=== PATIENT | male | born 1945 | race Caucasian/White ===

== ENCOUNTER 2019-03-26 12:04 | Inpatient (IN) | payer MEDICARE ==
[~2019-03-26] VITALS: Ht 170.2 cm; Wt 68.5 kg
--- NOTE | 2019-03-26 12:40 | PHYS DOC ---
Adult General Chief Complaint Chief Complaint: fall HPI HPI 73-year-old male presents for medical clearance of [facility] admission. The patient has had multiple falls at home. He has not had any imaging or workup since he's had these falls. The patient has been acting different than his baseline. He has had multiple strokes and has aphasia. He is unable to clearly communicate which he is feeling. He is able to tell me that he has pain in the posterior right hip. He does not tell me any other specific complaints. He is reported to be having delusions, depression, and anxiety. The behavioral health team has asked that we perform a head CT due to his recent falls. No reported fever. Review of Systems Review of Systems Constitutional: Denies fever or chills [] Eyes: Denies change in visual acuity, redness, or eye pain [] HENT: Denies nasal congestion or sore throat [] Respiratory: Denies cough or shortness of breath [] Cardiovascular: No additional information not addressed in HPI [] GI: Denies abdominal pain, nausea, vomiting, bloody stools or diarrhea [] : Denies dysuria or hematuria [] Musculoskeletal: Right hip pain[] Integument: Denies rash or skin lesions [] Neurologic: Dysarthria at baseline Denies headache. [] Endocrine: Denies polyuria or polydipsia [] All other systems were reviewed and found to be within normal limits, except as documented in this note. Current Medications Current Medications Current Medications Medications (Trade) Dose Ordered Sig/Moo Start Time Stop Time Status Last Admin Dose Admin Lorazepam (Ativan Inj) 2 mg 1X ONCE 03/26/19 12:30 03/26/19 12:31 UNV Physical Exam Physical Exam Constitutional: Well developed, well nourished, no acute distress, non-toxic appearance. [] HENT: Normocephalic, atraumatic, bilateral external ears normal, oropharynx moist, no oral exudates, nose normal. [] Eyes: PERRLA, EOMI, conjunctiva normal, no discharge. [] Neck: Normal range of motion, no tenderness, supple, no stridor. [] Cardiovascular:Heart rate regular rhythm, no murmur [] Lungs & Thorax: Bilateral breath sounds clear to auscultation [] Abdomen: Bowel sounds normal, soft, no tenderness, no masses, no pulsatile masses. [] Skin: Warm, dry, no erythema, no rash. [] Back: No tenderness, no CVA tenderness. [] Extremities: Mild tenderness over right posterior hip[] Neurologic: Alert, aphasia. Moving all extremities [] Psychologic: Affect normal, judgement normal, mood alternates between calm and frustrated. [] EKG EKG [] Radiology/Procedures Radiology/Procedures [] Impressions: Exam performed: CT scan of the head without contrast. Date of Service: 03/26/2019. Comparison: None available. Clinical History: Recent falls. Technique: Helical acquisitions are obtained from the foramen magnum to the vertex without intravenous administration of contrast. Findings: There is prominence of cortical sulci and ventricular system compatible with age related atrophy. There are areas of low-attenuation in both periventricular deep white matter suggesting small vessel ischemic changes. Normal garner-white differentiation is maintained. There is no extra axial fluid collection, intraparenchymal hemorrhage or mass lesion. The visualized portions of the orbits, paranasal sinuses and the mastoid air cells appear clear. The calvarium is intact. Impression: 1. Age-appropriate atrophy without any acute intracranial process. RS Compliance Statement: One or more of the following individualized dose reduction techniques were utilized for this examination: 1. Automated exposure control 2. Adjustment of the mA and/or kV according to patient size 3. Use of iterative reconstruction technique Electronically signed by: Shani Jones MD (03/26/2019 4:11 PM) [facility] [place]CTATED AND SIGNED BY: SHANI JONES MD DATE: 03/26/19 1611 CC: CATHERINE MENDOZA DO; PADMINI MORTON Course & Med Decision Making Course & Med Decision Making Pertinent Labs and Imaging studies reviewed. (See chart for details) Patient's head CT is negative for acute findings. His KUB shows stool retention. His hip x-ray did not show any fracture or dislocation. Patient was difficult to manage. He was given 2 mg of Ativan IM as well as 5 mg of Haldol IM. This calmed him significantly. The patient's labs have been reviewed. See chart for more details. None of these preclude his admission to [facility]. The patient is medically stable for behavioral health admission. [] Dragon Disclaimer Dragon Disclaimer This electronic medical record was generated, in whole or in part, using a voice recognition dictation system. Departure Departure: Impression: Primary Impression: Medical clearance for psychiatric admission Disposition: ADMITTED INPATIENT Condition: STABLE Referrals: PCP,RIKI (PCP) CATHERINE MENDOZA DO Mar 26, 2019 12:40
[2019-03-26 12:51] LABS: BASO # 0.1 x10^3/uL (0.0-0.2); BASO % 1 % (0-3); EOS # 0.1 x10^3/uL (0.0-0.7); EOS % 1 % (0-3); HEMATOCRIT 35.4 % (39.0-53.0); HEMOGLOBIN 11.7 g/dL (13.0-17.5); LYMPH # 0.9 x10^3/uL (1.0-4.8); LYMPH % 15 % (24-48); MEAN CORPUSCULAR HEMOGLOBIN 30 pg (25-35); MEAN CORPUSCULAR HGB CONC 33 g/dL (31-37); MEAN CORPUSCULAR VOLUME 91 fL (79-100); MONO # 0.4 x10^3/uL (0.0-1.1); MONO % 7 % (0-9); NEUT # 4.4 x10^3uL (1.8-7.7); NEUT % 76 % (31-73); PLATELET COUNT 306 x10^3/uL (140-400); RED BLOOD COUNT 3.89 x10^6/uL (4.30-5.70); RED CELL DISTRIBUTION WIDTH 15.2 % (11.5-14.5); WHITE BLOOD COUNT 5.9 x10^3/uL (4.0-11.0)
[2019-03-26 13:02] LABS: ALBUMIN 3.9 g/dL (3.4-5.0); ALBUMIN/GLOBULIN RATIO 1.1 (1.0-1.7); CALCIUM 9.7 mg/dL (8.5-10.1); CREATININE 0.9 mg/dL (0.7-1.3); GFR 82.9; POTASSIUM 4.2 mmol/L (3.5-5.1); TOTAL BILIRUBIN 1.1 mg/dL (0.2-1.0); TOTAL PROTEIN 7.3 g/dL (6.4-8.2)
[2019-03-26] MEDS ORDERED: HALOPERIDOL LACT 5 MG/ML VIAL. IVP ONE (13:15)
[2019-03-26] MEDS ORDERED: HALOPERIDOL LACT 5 MG/ML VIAL. ONE (13:21)
[2019-03-26] MEDS ORDERED: HALOPERIDOL LACT 5 MG/ML VIAL. IM ONE (13:30)
--- NOTE | 2019-03-26 14:26 | EKG ---
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
[2019-03-26 14:30] LABS: BACTERIA,URINE 0 /HPF (0-FEW); BILIRUBIN,URINE NEG (NEG); CLARITY,URINE CLEAR; COLOR,URINE YELLOW; GLUCOSE,URINE NEG (NEG); NITRITE,URINE NEG (NEG); RBC,URINE 0 /HPF (0-2); SQUAMOUS EPITHELIAL CELL,UR OCC /LPF; UROBILINOGEN,URINE 0.2 mg/dL (0.2 mg/dL); WBC,URINE OCC /HPF (0-4)
[2019-03-26] MEDS ORDERED: LEXAPRO10 MG PO (16:04)
[2019-03-26] MEDS ORDERED: BISA10SU4 RC (16:04)
[2019-03-26] MEDS ORDERED: TRAZ-120 PO (16:04)
[2019-03-26] MEDS ORDERED: ACET325T9 PO (16:04)
[2019-03-26] MEDS ORDERED: ALPR0.5T PO (16:04)
[2019-03-26] MEDS ORDERED: ALBU2.5V8 INH (16:04)
[2019-03-26] MEDS ORDERED: FOLI1TAB16 PO (16:04)
[2019-03-26] MEDS ORDERED: ALPR1TAB2 PO (16:04)
[2019-03-26] MEDS ORDERED: LEVO137T3 PO (16:04)
[2019-03-26] MEDS ORDERED: FAMO20TA5 PO (16:04)
[2019-03-26] MEDS ORDERED: ASPI-630 PO (16:04)
[2019-03-26] MEDS ORDERED: THIA100T22 PO (16:04)
[2019-03-26] MEDS ORDERED: LEVE100S8 PO (16:04)
[2019-03-26] MEDS ORDERED: ALPR0.25 PO (16:04)
--- NOTE | 2019-03-26 16:14 | RAD ---
Exam performed: CT scan of the head without contrast. Date of Service: 03/26/2019. Comparison: None available. Clinical History: Recent falls. Technique: Helical acquisitions are obtained from the foramen magnum to the vertex without intravenous administration of contrast. Findings: There is prominence of cortical sulci and ventricular system compatible with age related atrophy. There are areas of low-attenuation in both periventricular deep white matter suggesting small vessel ischemic changes. Normal garner-white differentiation is maintained. There is no extra axial fluid collection, intraparenchymal hemorrhage or mass lesion. The visualized portions of the orbits, paranasal sinuses and the mastoid air cells appear clear. The calvarium is intact. Impression: 1. Age-appropriate atrophy without any acute intracranial process. PQRS Compliance Statement: One or more of the following individualized dose reduction techniques were utilized for this examination: 1. Automated exposure control 2. Adjustment of the mA and/or kV according to patient size 3. Use of iterative reconstruction technique Electronically signed by: Shani Jones MD (03/26/2019 4:11 PM) [facility] [place]
[2019-03-26] MEDS ORDERED: METHYL SALICYLATE/MENTHOL TOPICAL OINTMENT 29GM TUBE. TP PRN (17:45)
[2019-03-26] MEDS ORDERED: MAGNESIUM HYDROXIDE 2,400 MG/30 ML ORAL.SUSP. PO PRN (17:45)
[2019-03-26] MEDS ORDERED: ALBUTEROL SULFATE 2.5 MG/3 ML NEBU. INH PRN (17:45)
[2019-03-26] MEDS ORDERED: BISACODYL 10 MG SUPP.RECT PR PRN (17:45)
[2019-03-26] MEDS ORDERED: MAG HYDROX/AL HYDROX/SIMETH 30 ML ORAL.SUSP PO PRN (17:45)
[2019-03-26] MEDS: NICOTINE 7MG PATCH. TD SCH (18:00)
[2019-03-26 18:22] VITALS: BP 150/92
--- NOTE | 2019-03-26 18:31 | RAD ---
Supine abdomen. HISTORY: Fall right hip pain Supine view was taken of the abdomen. Pelvis is intact without fracture. A definite right hip fracture is not identified. Left hip is incompletely evaluated. There is mild arthritis in the hips. There is hypertrophic change in the spine. Bowel pattern is nonspecific without obstruction. There is an old kyphoplasty at L4. IMPRESSION: 1. Nonspecific bowel gas pattern without obstruction. 2. No definite fracture in the right hip or pelvis. Electronically signed by: Rodrigo Nuñez MD (03/26/2019 6:28 PM) [facility]
--- NOTE | 2019-03-26 18:32 | RAD ---
Pelvis one view with 2 views right hip. HISTORY: Fall with right hip pain Single view was taken of the pelvis. There is no pelvic fracture. There is mild arthritis in the left hip. There is hypertrophic and degenerative change in the lower lumbar spine. AP and lateral views were taken of the right hip. There is mild arthritis and hypertrophic change at the hip. There is no acute fracture at the right hip. IMPRESSION: 1. No pelvic fracture noted. 2. No right hip fracture noted. Electronically signed by: Rodrigo Nuñez MD (03/26/2019 6:30 PM) [facility]
[2019-03-26] MEDS: levETIRAcetam 500 MG TABLET PO SCH (19:41)
[2019-03-26] MEDS: ACETAMINOPHEN 325 MG TABLET PO SCH (19:42)
[2019-03-26] MEDS: FAMOTIDINE 20 MG TABLET PO SCH (19:42)
[2019-03-26] MEDS: traZODone 50 MG TABLET. PO SCH (19:42)
[2019-03-26] MEDS: ALPRAZolam 0.25 MG TABLET PO SCH (19:47)
[2019-03-26] MEDS ORDERED: ALPRAZolam 0.5 MG TABLET PO SCH (21:00)
--- NOTE | 2019-03-26 21:57 | HP ---
ADMIT DATE: 03/26/2019 PSYCHIATRIC ADMISSION HISTORY AND EVALUATION This note covers the element not covered in my initial note. I met with the patient in the evening of 03/26/2019. Discussed with nursing staff, reviewed the chart. Previously, I discussed with the patient with Bernie Alejo preparation center coordinator after the patient was referred to us from [facility] by Dr. Nando Monsivais, his primary care physician on account of marked aggressive behaviors towards his . He was combative with staff, spitting out medications, yelling with marked insomnia, agitated, cursing at staff. He had failed outpatient psychiatric interventions. CHIEF COMPLAINT: "I don't know." The patient responded after I met with him shortly after he arrived on the unit and asked him when he came here. He has been angry, irritable, paranoid, refusing to eat. HISTORY OF PRESENT ILLNESS: The patient has a history of dementia, Alzheimer's vascular type. He has been residing at the [facility] for some time, but recently getting more paranoid, agitated, aggressive, disruptive. He has had sleep and appetite changes, significant mood swings. No active suicidal or homicidal ideation. The patient has had significant and repeated falls recently. PAST PSYCHIATRIC HISTORY: As above. MEDICAL HISTORY: Status post CVA, aphasia, cognitive impairment, dysphagia, hypertension, asthma, BPH, hypothyroidism, arthritis, history of thyroid cancer, past history of alcohol dependence, last use was in 11/2018. G-tube removed 03/21/2019. On 03/24/2019, the patient fell on his head, awaiting x-ray reports on hips and ribs. CURRENT PSYCHOTROPICS: Lexapro 10 mg a day, trazodone 50 mg at bedtime, Xanax 0.25 mg daily, 1 mg at bedtime, Xanax p.r.n. CODE STATUS: Full code. ALLERGIES: SULFA. DIET: Regular. Ambulates independently. He is at fall risk. FAMILY HISTORY: Noncontributory. SOCIAL HISTORY: Positive for alcohol abuse. No physical, sexual or elder abuse history is noted. He is not known to be a perpetrator. REACTION TO HOSPITALIZATION: The patient oblivious of this. ASSETS: Supportive, living at the facility. MENTAL STATUS EXAMINATION: The patient was seen individually evening of 03/26/2019. He is not very verbal, interactive, withdrawn, angry, irritable and paranoid. Insight, judgment, recent and remote memory, attention, concentration, fund of knowledge poor, consistent with his diagnosis. He is only oriented to himself. LABORATORY DATA: Reviewed. IMPRESSION: Major neurocognitive disorder, multifactorial, possibly due to alcohol, Alzheimer, vascular with delusion, depression, behavioral disturbance; anxiety disorder, unspecified; impulse control disorder, unspecified. Rest as above. PLAN: Admit to Geropsychiatry Unit at [facility]. I will see the patient daily individually from a psychiatric standpoint. Medical followup with Dr. Posada. Observe the patient's baseline, then adjust his psychotropics. He does seem to have some tremors. We will consult Dr. Cordero, Neurology. He is also on Keppra 1 g twice a day for seizure prophylaxis. Given his anger, irritability and the fact that Keppra could worsen it, we will check with Dr. Cordero that this can be changed to Depakote, which would help with mood stabilization as well. We have added Zyprexa 2.5 mg q.2 hours p.r.n. psychosis, agitation, max 10 mg in 24 hours after this. Staff had called me as an emergency. We will also taper and stop the scheduled Xanax 1 mg at bedtime. Continue p.r.n. Xanax is being tapered consequent with history of falls, benzodiazepines worsening this. We will make further decisions as the hospitalization progresses. ESTIMATED LENGTH OF STAY: 7-10 days. DISPOSITION: Plans back to correction when stable. MAN Gladis RECINOS MD DR: EVETTE/abdirahman JOB#: [id number] / [id number]
--- NOTE | 2019-03-26 23:15 | PDOC ---
Exam Note: Sebastien Note: Please also refer to the separate dictated note~for this date of service dictated separately.~Patient seen individually. Discussed the patient with Nursing staff reviewed the chart.~Reviewed interim history and current functioning. Reviewed vital signs,~Labs/ Radiology~and current medications noted below. Continue current treatment with the changes noted in the dictated addendum note Assessment: Vital Signs/I&O: Vital Signs Date Time Temp Pulse Resp B/P (MAP) Pulse Ox O2 Delivery O2 Flow Rate FiO2 03/26/19 18:22 97.8 87 16 150/92 (111) 95 03/26/19 14:57 Room Air Labs: Laboratory Tests Test 03/26/19 12:33 03/26/19 14:08 White Blood Count 5.9 x10^3/uL (4.0-11.0) Red Blood Count 3.89 x10^6/uL (4.30-5.70) L Hemoglobin 11.7 g/dL (13.0-17.5) L Hematocrit 35.4 % (39.0-53.0) L Mean Corpuscular Volume 91 fL (79-100) Mean Corpuscular Hemoglobin 30 pg (25-35) Mean Corpuscular Hemoglobin Concent 33 g/dL (31-37) Red Cell Distribution Width 15.2 % (11.5-14.5) H Platelet Count 306 x10^3/uL (140-400) Neutrophils (%) (Auto) 76 % (31-73) H Lymphocytes (%) (Auto) 15 % (24-48) L Monocytes (%) (Auto) 7 % (0-9) Eosinophils (%) (Auto) 1 % (0-3) Basophils (%) (Auto) 1 % (0-3) Neutrophils # (Auto) 4.4 x10^3uL (1.8-7.7) Lymphocytes # (Auto) 0.9 x10^3/uL (1.0-4.8) L Monocytes # (Auto) 0.4 x10^3/uL (0.0-1.1) Eosinophils # (Auto) 0.1 x10^3/uL (0.0-0.7) Basophils # (Auto) 0.1 x10^3/uL (0.0-0.2) Sodium Level 145 mmol/L (136-145) Potassium Level 4.2 mmol/L (3.5-5.1) Chloride Level 107 mmol/L (98-107) Carbon Dioxide Level 28 mmol/L (21-32) Anion Gap 10 (6-14) Blood Urea Nitrogen 17 mg/dL (8-26) Creatinine 0.9 mg/dL (0.7-1.3) Estimated GFR (Cockcroft-Gault) 82.9 BUN/Creatinine Ratio 19 (6-20) Glucose Level 121 mg/dL (70-99) H Calcium Level 9.7 mg/dL (8.5-10.1) Magnesium Level 2.2 mg/dL (1.8-2.4) Iron Level 50 ug/dL (65-175) L Total Iron Binding Capacity 211 ug/dL (250-450) L Iron Saturation 24 % (15-34) Total Bilirubin 1.1 mg/dL (0.2-1.0) H Aspartate Amino Transferase (AST) 20 U/L (15-37) Alanine Aminotransferase (ALT) 30 U/L (16-63) Alkaline Phosphatase 93 U/L (46-116) Total Protein 7.3 g/dL (6.4-8.2) Albumin 3.9 g/dL (3.4-5.0) Albumin/Globulin Ratio 1.1 (1.0-1.7) Urine Collection Type Unknown Urine Color Yellow Urine Clarity Clear Urine pH 7.0 Urine Specific [place] 1.015 Urine Protein Neg (NEG-TRACE) Urine Glucose (UA) Neg mg/dL (NEG) Urine Ketones (Stick) Neg mg/dL (NEG) Urine Blood Neg (NEG) Urine Nitrite Neg (NEG) Urine Bilirubin Neg (NEG) Urine Urobilinogen Dipstick 0.2 mg/dL (0.2 mg/dL) Urine Leukocyte Esterase Neg (NEG) Urine RBC 0 /HPF (0-2) Urine WBC Occ /HPF (0-4) Urine Squamous Epithelial Cells Occ /LPF Urine Transitional Epithelial Cells Occ /LPF Urine Bacteria 0 /HPF (0-FEW) Urine Mucus Slight /LPF Current Medications: Meds: Current Medications Medications (Trade) Dose Ordered Sig/Moo Route PRN Reason Start Time Stop Time Status Last Admin Dose Admin Lorazepam (Ativan Inj) 2 mg 1X ONCE IM 03/26/19 12:30 03/26/19 15:23 DC 03/26/19 12:25 Haloperidol Lactate (Haldol) 5 mg 1X ONCE IM 03/26/19 13:30 03/26/19 15:23 DC 03/26/19 13:30 Acetaminophen (Tylenol) 650 mg BID PO 03/26/19 21:00 03/26/19 19:42 Famotidine (Pepcid) 20 mg BID PO 03/26/19 21:00 03/26/19 19:42 Levetiracetam (Keppra) 1,000 mg BID PO 03/26/19 21:00 03/26/19 19:41 Trazodone HCl (Desyrel) 50 mg QHS PO 03/26/19 21:00 03/26/19 19:42 Alprazolam (Xanax) 0.75 mg QHS PO 03/26/19 21:00 03/27/19 23:50 03/26/19 19:47 Olanzapine (ZyPREXA ZYDIS) 2.5 mg PRN Q2HR PRN PO AGITATION 03/26/19 19:30 03/26/19 19:48 I have reviewed the current psychotropics carefully including drug interactions. Risk benefit ratio favors no change other than as noted in my dictated progress note. Diagnosis: Problems: (1) Medical clearance for psychiatric admission (2) Anxiety disorder (3) Major neurocognitive disorder (4) Dementia in Alzheimer's disease with delusions (5) Dementia in Alzheimer's disease with depression (6) Dementia, vascular, with delusions (7) Dementia, vascular, with depression (8) Impulse control disorder CECILIO RECINOS MD Mar 26, 2019 23:15
--- NOTE | 2019-03-27 01:07 | CONS ---
DATE OF CONSULTATION: NEUROLOGY CONSULTATION REFERRING PHYSICIAN: Dr. Holman. REASON FOR CONSULTATION: History of seizure disorder and frequent falls. HISTORY OF PRESENT ILLNESS: This is a 73-year-old right-handed male who was admitted through Emergency Room after he had medical clearance for admission to [facility] for geropsychiatric care. The patient stated he has had multiple falls at home and he complains of hip pain. The patient cannot give medical history because the patient cannot give a reliable history due to expressive aphasia after he had a hemorrhagic stroke a few months ago. The initial head CT scan revealed evidence of left temporal prior to intracranial hemorrhage; however, the patient received stroke rehabilitation and he was able to move all his extremities. Neuro consult was requested because he has recent falls and also change in his current seizure medication from Keppra to Depakote. Unfortunately, the patient unable to describe or give any information about a type of his seizure. Currently, he denies headaches, visual disturbances, nausea, vomiting, chest pain, shortness of breath or palpitation, dysarthria or dysphagia. PAST MEDICAL HISTORY: Significant for hemorrhagic stroke resulted in expressive aphasia and later on he needed PEG feeding tube placement, which was removed approximately a week ago and he is back on his regular diet. History of asthma, benign prostate hypertrophy, hypothyroidism, hypertension, degenerative arthritis, depression, anxiety, decline in cognitive functions, alcohol dependency, the last use was in 11/2018, thyroid cancer and substance abuse. PAST SURGICAL HISTORY: Significant for thyroid lobectomy, tonsillectomy, appendectomy and right elbow surgery. FAMILY HISTORY: Not obtainable. SOCIAL HISTORY: He lives independently and he denies smoking, but he was alcohol dependent until 11/2018. CURRENT MEDICATIONS: Alprazolam, thiamine, folic acid, citalopram, aspirin, levothyroxine, trazodone, Keppra 1000 b.i.d., Pepcid, acetaminophen, Tylenol and olanzapine for agitation, albuterol inhaler p.r.n. ALLERGIES: SULFA DRUGS. REVIEW OF SYSTEMS: A 10-point review of system was performed as mentioned above in history of present illness. PHYSICAL EXAMINATION: GENERAL: Well-developed, well-nourished male, not in acute distress. He weighs 70 kilograms. VITAL SIGNS: Blood pressure 150/92, respiratory rate 16, pulse is 87 and regular, temperature 97.8, oxygen saturation 95% on room air. HEENT: Normocephalic, atraumatic, otherwise unremarkable. NECK: Supple. Negative for carotid bruit, lymphadenopathy or thyromegaly. LUNGS: Clear to A and P. CARDIOVASCULAR: Regular rate and rhythm, normal S1, S2. There is no S3, S4 or murmur. ABDOMEN: Soft. Bowel sounds positive. EXTREMITIES: Negative for cyanosis, clubbing or edema. NEUROLOGIC: Mental status: The patient is alert and oriented to himself and place. The patient is expressive aphasic. Memory, judgment, and abstracting thinking is difficult to evaluate at this time. Cranial nerves: Visual alfred appeared to be intact. Pupils are equal and reactive to light and accommodation. The extraocular movements are intact. There is no nystagmus. There is no facial, motor, or sensory deficit. Hearing appeared to be intact. The rest of the evaluation is limited at this time. Motor exam: The patient moves his all extremities equally. No focal muscle bulk was seen. Sensory examination revealed normal pinprick and light touch senses throughout. Deep tendon reflexes were symmetric and hypoactive without pathology responses. Gait: The patient refused to stand out from his chair. However, the nursing staff told me that he was able to walk earlier without assistance. DIAGNOSTIC DATA: Initial nonenhanced head CT scan showed no acute intracranial process, but showed small vessel ischemic changes. X-ray of the right hip revealed no fracture and x-ray of the pelvis revealed no fracture. Abdomen KUB x-ray revealed no evidence of bowel obstructions. No fracture of the right hip as well. LABORATORY DATA: CBC revealed white blood cells of 5900, hemoglobin 11.7, hematocrit 35.4, platelet count 306,000. Chemistry revealed sodium of 145, potassium 4.2, chloride 107, CO2 of 28, BUN 17, creatinine 0.9, glucose 121, calcium 9.7, magnesium 2.2. Iron is 50, TIBC is low at 211. Liver enzymes are normal. Urinalysis is negative for urinary tract infections. IMPRESSION: 1. Status post hemorrhagic stroke in left temporoparietal regions resulted in expressive aphasia. No focal motor deficit. 2. History of seizure disorder, etiology is uncertain. 3. Multiple medical problems includes hypertension, dementia, depressions and anxiety, alcohol dependency, but the last use was in 11/2018 and generalized degenerative arthritis. RECOMMENDATIONS: 1. We will change Keppra to Depakote. 2. Continue with current medical and psychiatric care. M Kwaku MOLINA MD DR: JOSE MIGUEL/abdirahman JOB#: [id number] / [id number]
[2019-03-27] MEDS: LEVOTHYROXINE 137 MCG TABLET PO SCH (05:15)
[2019-03-27 06:33] VITALS: BP 174/91
[2019-03-27] MEDS: NICOTINE 7MG PATCH. TD SCH (07:46)
[2019-03-27] MEDS: levETIRAcetam 500 MG TABLET PO SCH ×3 (07:47→20:44)
[2019-03-27] MEDS: ACETAMINOPHEN 325 MG TABLET PO SCH ×2 (07:47→20:44)
[2019-03-27] MEDS: FAMOTIDINE 20 MG TABLET PO SCH ×2 (07:47→20:44)
[2019-03-27] MEDS: ASPIRIN 81 MG TAB.CHEW PO SCH (07:51)
[2019-03-27] MEDS: ALPRAZolam 0.25 MG TABLET PO SCH ×2 (07:51→20:43)
[2019-03-27] MEDS: CITALOPRAM 20 MG TABLET. PO SCH (07:51)
[2019-03-27] MEDS: FOLIC ACID 1 MG TABLET PO SCH (07:54)
[2019-03-27] MEDS: THIAMINE 100 MG TABLET. PO SCH (07:54)
[2019-03-27 10:55] LABS: THYROID STIM HORMONE (TSH) 19.297 uIU/mL (0.358-3.740)
[2019-03-27 16:29] VITALS: BP 137/87
[2019-03-27 20:08] LABS: THYROXINE 8.5 ug/dL (4.5-12.0)
[2019-03-27] MEDS: traZODone 50 MG TABLET. PO SCH (20:44)
--- NOTE | 2019-03-27 21:56 | PDOC ---
Exam Note: Sebastien Note: Please also refer to the separate dictated note~for this date of service dictated separately.~Patient seen individually. Discussed the patient with Nursing staff reviewed the chart.~Reviewed interim history and current functioning. Reviewed vital signs,~Labs/ Radiology~and current medications noted below. Continue current treatment with the changes noted in the dictated addendum note Assessment: Vital Signs/I&O: Vital Signs Date Time Temp Pulse Resp B/P (MAP) Pulse Ox O2 Delivery O2 Flow Rate FiO2 03/27/19 16:29 98.6 60 16 137/87 (104) 98 03/27/19 06:33 Room Air Current Medications: Meds: Current Medications Medications (Trade) Dose Ordered Sig/Moo Route PRN Reason Start Time Stop Time Status Last Admin Dose Admin Levothyroxine Sodium (Synthroid) 137 mcg DAILY06 PO 03/27/19 06:00 03/27/19 05:15 Alprazolam (Xanax) 0.25 mg DAILY PO 03/27/19 09:00 03/27/19 07:51 Aspirin (Children'S Aspirin) 162 mg DAILYWBKFT PO 03/27/19 08:00 03/27/19 07:51 Citalopram Hydrobromide (CeleXA) 20 mg DAILY PO 03/27/19 09:00 03/27/19 07:51 Folic Acid (Folic Acid) 1 mg DAILY PO 03/27/19 09:00 03/27/19 07:54 Thiamine HCl (Vitamin B-1) 500 mg DAILY PO 03/27/19 09:00 03/27/19 07:54 I have reviewed the current psychotropics carefully including drug interactions. Risk benefit ratio favors no change other than as noted in my dictated progress note. Diagnosis: Problems: (1) Anxiety disorder (2) Major neurocognitive disorder (3) Dementia in Alzheimer's disease with delusions (4) Dementia in Alzheimer's disease with depression (5) Dementia, vascular, with delusions (6) Dementia, vascular, with depression (7) Impulse control disorder CECILIO RECINOS MD Mar 27, 2019 21:56
--- NOTE | 2019-03-27 23:28 | CONS ---
DATE OF CONSULTATION: 03/27/2019 REASON FOR CONSULTATION: Medical management. HISTORY OF PRESENT ILLNESS: The patient is a 73-year-old male patient, a resident at [facility], who was admitted on account of being aggressive toward , combative with staff, spitting out medication, yelling, cursing, has insomnia and he is extremely agitated despite treatment with Xanax and scheduled his Lexapro to continue and therefore, he was admitted for inpatient psychiatric stabilization. PAST MEDICAL HISTORY: Cognitive impairment as well as major depressive disorder and history of alcohol dependence. The last time he had any drink was in 11/2018. 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 Other medical problems include hypertension, benign prostatic hypertrophy, hypothyroidism, generalized osteoarthritis, thyroid cancer as well as alcohol dependence. PAST SURGICAL HISTORY: Significant for thyroidectomy as well as percutaneous endoscopic gastrostomy tube placement. Apparently, this was removed recently as his ability to swallow has improved. PAST PSYCHIATRIC HISTORY: Significant for neurocognitive disorder, vascular, Alzheimer with delusion, depression with behavior disorder, anxiety and impulse control disorder. ALLERGIES: He is allergic to SULFA DRUGS. MEDICATIONS: He is currently on following medications: He is on albuterol sulfate 1 puff every 4 hours as needed, aspirin 162 mg once a day, Tylenol 650 mg twice a day, Keppra 1000 mg twice a day, escitalopram oxalate for Lexapro 10 mg daily and trazodone 50 mg at bedtime, alprazolam 0.25 mg daily and alprazolam 0.5 mg every 8 hours, alprazolam 1 mg at bedtime, bisacodyl 10 mg suppository rectally daily p.r.n. for constipation, famotidine 20 mg twice a day, levothyroxine sodium 137 mcg p.o. daily, folic acid 1 mg once a day and thiamine mononitrate 500 mg daily. FAMILY HISTORY: Noncontributory. SOCIAL HISTORY: He apparently is ; however, currently resides at [facility]. He apparently does not smoke, but has been drinking heavily up until 11/2018. PHYSICAL EXAMINATION: GENERAL: When I examined him this afternoon, he was sitting comfortably in his wheelchair, in no apparent distress. He was pale, but no jaundice, cyanosis, or thyromegaly. No jugular venous distension. No limb edema. VITAL SIGNS: His heart rate was 55, blood pressure was 174/91, temperature was 98, respiratory rate was 16, and oxygen saturation was 100% on room air. HEAD, EYES, EARS, NOSE AND THROAT: Showed normocephalic, atraumatic. NECK: Supple. HEART: Showed normal first and second heart sounds with no gallop, rub or murmur. CHEST: Clear to auscultation. No crepitation or rhonchi. ABDOMEN: Distended, soft, nontender. No guarding or rigidity. No organomegaly. All hernial orifices intact. Bowel sounds normal. NEUROLOGIC: He was awake, alert, responding appropriately. All his cranial nerves are intact. He moves extremities without difficulty. He apparently has had a CT scan of the head, which showed that there is a prominence of cortical sulci and ventricular system compatible with age-related atrophy. There are areas of low attenuation in both periventricular deep white matter suggestive of small vessel ischemic changes. Normal helms white differentiation is maintained. There is no extraaxial fluid collection, intraparenchymal hemorrhage or mass lesions. The visualized portions of the orbits, paranasal sinuses and mastoid air cells appear clear. The calvarium is intact. He apparently has also had a fall, complained of right hip pain and therefore he has had x-ray of the right hip and pelvis, which showed no pelvic fracture and no right hip fracture noted. He has had a KUB, which showed nonspecific bowel gas pattern without obstruction, the different fracture of the right hip or pelvis. IMPRESSION: So, in summary, his lab work showed his white cell count to be 5900, hemoglobin 11.7, hematocrit 35.4, MCV 91, and a platelet count of 206,000 with normal manual differential. His chemistry showed a serum sodium of 145, potassium 4.2, chloride 107, bicarbonate 28, anion gap of 10, BUN 17, creatinine 0.9, estimated GFR was 83 mL per minute. His glucose 121, calcium was 9.7, magnesium was 2.2. Serum iron was 50, TIBC was 211 and iron saturation was 24%. Total bilirubin, AST, ALT, alkaline phosphatase were normal. Total protein was 7.3, albumin was 3.9. His serum triglycerides were 157, total cholesterol 138, LDL cholesterol was 56, VLDL was 31, and HDL cholesterol was 51, the ratio was 2. His TSH was high at 19.297. The urinalysis was essentially unremarkable. So, all in all, this patient seems to be medically stable. His TSH is high. He is currently on 137 mcg daily. I will check his T3, T4, free T4, and adjust his Synthroid, levothyroxine as needed. Thank you, Dr. Holman, for allowing me to participate in the care of this patient. ASTRID STOKES MD DR: MANJU/abdirahman JOB#: [id number] / [id number]
[2019-03-28] MEDS: LEVOTHYROXINE 137 MCG TABLET PO SCH (05:27)
[2019-03-28 06:59] VITALS: BP 161/90
[2019-03-28] MEDS: CITALOPRAM 20 MG TABLET. PO SCH (08:55)
[2019-03-28] MEDS: NICOTINE 7MG PATCH. TD SCH ×2 (08:55→09:00)
[2019-03-28] MEDS: ASPIRIN 81 MG TAB.CHEW PO SCH (08:56)
[2019-03-28] MEDS: FAMOTIDINE 20 MG TABLET PO SCH ×2 (08:56→19:44)
[2019-03-28] MEDS: levETIRAcetam 500 MG TABLET PO SCH ×2 (08:56→19:44)
[2019-03-28] MEDS: THIAMINE 100 MG TABLET. PO SCH (08:56)
[2019-03-28] MEDS: FOLIC ACID 1 MG TABLET PO SCH (08:57)
[2019-03-28] MEDS: ACETAMINOPHEN 325 MG TABLET PO SCH ×2 (08:57→19:44)
[2019-03-28] MEDS: ALPRAZolam 0.25 MG TABLET PO SCH (08:59)
[2019-03-28] MEDS: DIVALPROEX 125 MG CAP.SPRINK PO SCH ×2 (08:59→19:43)
[2019-03-28] MEDS: ALPRAZolam 0.5 MG TABLET PO PRN (15:52)
[2019-03-28 16:31] VITALS: BP 117/86
[2019-03-28] MEDS: traZODone 50 MG TABLET. PO SCH (19:44)
[2019-03-28] MEDS: ALPRAZolam 0.5 MG TABLET PO SCH (19:45)
--- NOTE | 2019-03-28 22:40 | PDOC ---
Exam Note: Sebastien Note: Please also refer to the separate dictated note~for this date of service dictated separately.~Patient seen individually. Discussed the patient with Nursing staff reviewed the chart.~Reviewed interim history and current functioning. Reviewed vital signs,~Labs/ Radiology~and current medications noted below. Continue current treatment with the changes noted in the dictated addendum note Assessment: Vital Signs/I&O: Vital Signs Date Time Temp Pulse Resp B/P (MAP) Pulse Ox O2 Delivery O2 Flow Rate FiO2 03/28/19 16:31 97.4 80 16 117/86 (96) 95 03/28/19 06:59 Room Air I & O 03/27/19 03/27/19 03/28/19 14:59 22:59 06:59 Intake Total 240 ml 0 ml 240 ml Balance 240 ml 0 ml 240 ml Current Medications: Meds: Current Medications Medications (Trade) Dose Ordered Sig/Moo Route PRN Reason Start Time Stop Time Status Last Admin Dose Admin Alprazolam (Xanax) 0.5 mg QHS PO 03/28/19 21:00 03/29/19 23:50 03/28/19 19:45 Divalproex Sodium (Depakote Sprinkles) 250 mg BID PO 03/28/19 09:00 03/28/19 19:43 I have reviewed the current psychotropics carefully including drug interactions. Risk benefit ratio favors no change other than as noted in my dictated progress note. Diagnosis: Problems: (1) Anxiety disorder (2) Major neurocognitive disorder (3) Dementia in Alzheimer's disease with delusions (4) Dementia in Alzheimer's disease with depression (5) Dementia, vascular, with delusions (6) Dementia, vascular, with depression (7) Impulse control disorder (8) Hx of seizure disorder CECILIO RECINOS MD Mar 28, 2019 22:39
[2019-03-29 01:10] LABS: HEMOGLOBIN A1C 5.5 % (4.8-5.6)
[2019-03-29] MEDS: LEVOTHYROXINE 137 MCG TABLET PO SCH (05:51)
[2019-03-29 06:08] VITALS: BP 107/67
[2019-03-29] MEDS: THIAMINE 100 MG TABLET. PO SCH (08:35)
[2019-03-29] MEDS: ASPIRIN 81 MG TAB.CHEW PO SCH (08:35)
[2019-03-29] MEDS: FOLIC ACID 1 MG TABLET PO SCH (08:36)
[2019-03-29] MEDS: levETIRAcetam 500 MG TABLET PO SCH ×2 (08:36→19:30)
[2019-03-29] MEDS: ACETAMINOPHEN 325 MG TABLET PO SCH ×2 (08:37→19:30)
[2019-03-29] MEDS: DIVALPROEX 125 MG CAP.SPRINK PO SCH ×2 (08:38→19:29)
[2019-03-29] MEDS: CITALOPRAM 20 MG TABLET. PO SCH (08:38)
[2019-03-29] MEDS: FAMOTIDINE 20 MG TABLET PO SCH ×2 (08:39→19:30)
[2019-03-29] MEDS: NICOTINE 7MG PATCH. TD SCH (08:40)
[2019-03-29] MEDS: ALPRAZolam 0.5 MG TABLET PO SCH ×2 (08:41→12:36)
[2019-03-29] MEDS: ALPRAZolam 0.25 MG TABLET PO SCH (08:43)
[2019-03-29] MEDS: hydrOXYzine HCL 25 MG TABLET PO PRN (12:36)
[2019-03-29] MEDS: ACETAMINOPHEN 325 MG TABLET PO PRN (13:20)
[2019-03-29 16:29] VITALS: BP 118/79
[2019-03-29] MEDS: traZODone 50 MG TABLET. PO SCH (19:29)
--- NOTE | 2019-03-29 22:48 | PDOC ---
Exam Note: Sebastien Note: Please also refer to the separate dictated note~for this date of service dictated separately.~Patient seen individually. Discussed the patient with Nursing staff reviewed the chart.~Reviewed interim history and current functioning. Reviewed vital signs,~Labs/ Radiology~and current medications noted below. Continue current treatment with the changes noted in the dictated addendum note Assessment: Vital Signs/I&O: Vital Signs Date Time Temp Pulse Resp B/P (MAP) Pulse Ox O2 Delivery O2 Flow Rate FiO2 03/29/19 16:29 97.7 70 16 118/79 (92) 91 03/29/19 06:08 Room Air I & O 03/28/19 03/28/19 03/29/19 14:59 22:59 06:59 Intake Total 720 ml 220 ml Balance 720 ml 220 ml Current Medications: Meds: Current Medications Medications (Trade) Dose Ordered Sig/Moo Route PRN Reason Start Time Stop Time Status Last Admin Dose Admin Hydroxyzine HCl (Atarax) 25 mg PRN Q2HR PRN PO ITCHING 03/29/19 12:30 03/29/19 12:36 I have reviewed the current psychotropics carefully including drug interactions. Risk benefit ratio favors no change other than as noted in my dictated progress note. Diagnosis: Problems: (1) Anxiety disorder (2) Major neurocognitive disorder (3) Dementia in Alzheimer's disease with delusions (4) Dementia in Alzheimer's disease with depression (5) Dementia, vascular, with delusions (6) Dementia, vascular, with depression (7) Impulse control disorder (8) Hx of seizure disorder CECILIO RECINOS MD Mar 29, 2019 22:48
--- NOTE | 2019-03-29 23:44 | PN ---
DATE: 03/28/2019 This is a late entry 03/28/2019, covers elements not covered in my initial note. SUBJECTIVE: I met with the patient in the evening. The patient slept 6 hours previous night. He did well in the morning, did have a shower, but by the evening, he was getting agitated. He then took a nap, received a p.r.n. then did much better. REVIEW OF SYSTEMS: Ambulation somewhat impaired. No CV, , pulmonary, eye, ENT system symptoms on review. Reliability poor. MENTAL STATUS EXAM: Oriented to himself. Insight, judgment, recent and remote memory, attention, concentration, fund of knowledge poor, consistent with his diagnosis mentioned in my initial note. PLAN: No change from initial note. Continue to adjust the Depakote and then taper the Keppra, maintain rest unchanged. Xanax is being tapered. MAN Gladis RECINOS MD DR: EVETTE/abdirahman JOB#: [id number] / [id number]
--- NOTE | 2019-03-30 02:43 | PN ---
DATE: 03/27/2019 PSYCHIATRIC PROGRESS NOTE This late entry of 03/27/2019 covers elements not covered in my initial note. SUBJECTIVE: I met with the patient in the evening of 03/27/2019. The patient slept till 10:00 in the morning. TSH is elevated, deferred to Dr. Posada. He slept a total of 7-3/4 hours. Agitated at times, received Zyprexa at noon at 1830. We did check with Dr. Cordero whether Keppra could be reduced since it could worsen his agitation and substitute it by Depakote and Dr. Cordero was agreeable on consult and we will go ahead and initiate Depakote 250 b.i.d. Check CBC, CMP, valproic acid level in 3 days. Once it is therapeutic, then taper the Keppra. CT head shows atrophy. REVIEW OF SYSTEMS: No CV, , eye, ENT or pulmonary system symptoms on review. Reliability poor. MENTAL STATUS EXAM: Oriented to himself. Insight, judgment, recent and remote memory, attention, concentration, fund of knowledge poor, consistent with his diagnosis. IMPRESSION: Major neurocognitive disorder; Alzheimer's, vascular with delusion; depression; behavioral disturbance; anxiety disorder, unspecified; impulse control disorder, unspecified. Rest unchanged. PLAN: Continue psychotropics as mentioned in my initial note with the changes noted above. Maintain Celexa 10 mg a day, trazodone 50 mg at bedtime, Xanax p.r.n., which is being tapered and Zyprexa p.r.n. and the Depakote as noted. MAN Gladis RECINOS MD DR: EVETTE/abdirahman JOB#: [id number] / [id number]
[2019-03-30] MEDS: LEVOTHYROXINE 137 MCG TABLET PO SCH (05:23)
[2019-03-30 06:01] VITALS: BP 104/65
[2019-03-30] MEDS: NICOTINE 7MG PATCH. TD SCH (07:57)
[2019-03-30] MEDS: DIVALPROEX 125 MG CAP.SPRINK PO SCH ×2 (07:57→19:23)
[2019-03-30] MEDS: FOLIC ACID 1 MG TABLET PO SCH (07:58)
[2019-03-30] MEDS: CITALOPRAM 20 MG TABLET. PO SCH (07:58)
[2019-03-30] MEDS: levETIRAcetam 500 MG TABLET PO SCH ×2 (07:58→19:23)
[2019-03-30] MEDS: ASPIRIN 81 MG TAB.CHEW PO SCH (07:58)
[2019-03-30] MEDS: THIAMINE 100 MG TABLET. PO SCH (07:58)
[2019-03-30] MEDS: ACETAMINOPHEN 325 MG TABLET PO SCH ×2 (07:58→19:23)
[2019-03-30] MEDS: ALPRAZolam 0.25 MG TABLET PO SCH ×2 (07:59→19:38)
[2019-03-30] MEDS: hydrOXYzine HCL 25 MG TABLET PO PRN ×2 (07:59→12:45)
[2019-03-30] MEDS: FAMOTIDINE 20 MG TABLET PO SCH ×2 (07:59→19:26)
[2019-03-30] MEDS: ALPRAZolam 0.5 MG TABLET PO PRN (15:09)
[2019-03-30] MEDS: HALOPERIDOL LACT 5 MG/ML VIAL. IM SCH (16:02)
[2019-03-30] MEDS ORDERED: traZODone 50 MG TABLET. PO PRN (16:45)
[2019-03-30] MEDS: traZODone 50 MG TABLET. PO SCH (19:23)
[2019-03-30] MEDS: MIRTAZAPINE 7.5 MG TABLET. PO SCH (19:38)
--- NOTE | 2019-03-30 22:22 | PDOC ---
Exam Note: Sebastien Note: Please also refer to the separate dictated note~for this date of service dictated separately.~Patient seen individually. Discussed the patient with Nursing staff reviewed the chart.~Reviewed interim history and current functioning. Reviewed vital signs,~Labs/ Radiology~and current medications noted below. Continue current treatment with the changes noted in the dictated addendum note Assessment: Vital Signs/I&O: Vital Signs Date Time Temp Pulse Resp B/P (MAP) Pulse Ox O2 Delivery O2 Flow Rate FiO2 03/30/19 06:01 97.2 56 18 104/65 (78) 99 03/29/19 06:08 Room Air I & O 03/29/19 03/29/19 03/30/19 15:00 23:00 07:00 Intake Total 240 ml 100 ml Balance 240 ml 100 ml Current Medications: Meds: Current Medications Medications (Trade) Dose Ordered Sig/Moo Route PRN Reason Start Time Stop Time Status Last Admin Dose Admin Alprazolam (Xanax) 0.25 mg QHS PO 03/30/19 21:00 03/31/19 23:50 03/30/19 19:38 Haloperidol Lactate (Haldol) 2 mg DAILY IM 03/30/19 16:00 03/30/19 16:02 Mirtazapine (Remeron) 7.5 mg QHS PO 03/30/19 21:00 03/30/19 19:38 I have reviewed the current psychotropics carefully including drug interactions. Risk benefit ratio favors no change other than as noted in my dictated progress note. Diagnosis: Problems: (1) Medical clearance for psychiatric admission (2) Anxiety disorder (3) Major neurocognitive disorder (4) Dementia in Alzheimer's disease with delusions (5) Dementia in Alzheimer's disease with depression (6) Dementia, vascular, with delusions (7) Dementia, vascular, with depression (8) Impulse control disorder (9) Hx of seizure disorder CECILIO RECINOS MD Mar 30, 2019 22:22
--- NOTE | 2019-03-31 02:02 | PN ---
DATE: 03/29/2019 PROGRESS NOTE This late entry of 03/29/2019 covers elements not covered in my initial note. SUBJECTIVE: I met with the patient in the evening. The patient slept 6-1/2 hours previous night. He has had a very difficult day. He has been agitated, combative, trying to walk on his own, is a fall risk. Verbally and physically aggressive to staff. Zyprexa was no help. Atarax seemed to help a little. TSH elevated at 19. We will defer to Dr. Posada. REVIEW OF SYSTEMS: Ambulation impaired. No CV, , pulmonary, eye, ENT system symptoms on review. Reliability poor. MENTAL STATUS EXAM: Oriented to himself. Insight, judgment, recent and remote memory, attention, concentration, fund of knowledge poor, consistent with his diagnosis mentioned in my initial note. IMPRESSION: Major neurocognitive disorder; Alzheimer, vascular with delusion; depression; behavioral disturbance; anxiety disorder, unspecified; impulse control disorder, unspecified. PLAN: Continue current psychotropics and we will use Atarax p.r.n. Xanax is being tapered. Labs level of Depakote on 03/31/2018 and then adjust to reach therapeutic level. MAN Gladis RECINOS MD DR: EVETTE/abdirahman JOB#: [id number] / [id number]
[2019-03-31 05:14] VITALS: BP 158/82
[2019-03-31] MEDS: LEVOTHYROXINE 150 MCG TABLET PO SCH ×2 (05:51→06:30)
[2019-03-31] MEDS: ASPIRIN 81 MG TAB.CHEW PO SCH ×2 (13:22→15:26)
[2019-03-31] MEDS: FOLIC ACID 1 MG TABLET PO SCH (13:23)
[2019-03-31] MEDS: FAMOTIDINE 20 MG TABLET PO SCH ×2 (13:23→20:36)
[2019-03-31] MEDS: THIAMINE 100 MG TABLET. PO SCH (13:23)
[2019-03-31] MEDS: DIVALPROEX 125 MG CAP.SPRINK PO SCH ×2 (15:26→20:37)
[2019-03-31] MEDS: ACETAMINOPHEN 325 MG TABLET PO SCH ×2 (15:26→20:37)
[2019-03-31] MEDS: CITALOPRAM 20 MG TABLET. PO SCH (15:26)
[2019-03-31] MEDS: levETIRAcetam 500 MG TABLET PO SCH ×2 (15:27→20:37)
[2019-03-31] MEDS: NICOTINE 7MG PATCH. TD SCH (15:29)
[2019-03-31 15:30] LABS: BASO # 0.1 x10^3/uL (0.0-0.2); BASO % 2 % (0-3); EOS # 0.2 x10^3/uL (0.0-0.7); EOS % 5 % (0-3); HEMATOCRIT 36.6 % (39.0-53.0); LYMPH # 0.8 x10^3/uL (1.0-4.8); LYMPH % 24 % (24-48); MEAN CORPUSCULAR HEMOGLOBIN 30 pg (25-35); MEAN CORPUSCULAR HGB CONC 33 g/dL (31-37); MEAN CORPUSCULAR VOLUME 90 fL (79-100); MONO # 0.5 x10^3/uL (0.0-1.1); MONO % 14 % (0-9); NEUT # 1.9 x10^3uL (1.8-7.7); NEUT % 55 % (31-73); PLATELET COUNT 326 x10^3/uL (140-400); RED BLOOD COUNT 4.05 x10^6/uL (4.30-5.70); RED CELL DISTRIBUTION WIDTH 15.3 % (11.5-14.5); WHITE BLOOD COUNT 3.5 x10^3/uL (4.0-11.0)
[2019-03-31 15:44] LABS: ALBUMIN 3.9 g/dL (3.4-5.0); ALBUMIN/GLOBULIN RATIO 1.1 (1.0-1.7); ALK PHOS 98 U/L (46-116); ALT (SGPT) 27 U/L (16-63); ANION GAP 8 (6-14); AST (SGOT) 23 U/L (15-37); BLOOD UREA NITROGEN 21 mg/dL (8-26); BUN/CREATININE RATIO 26 (6-20); CALCIUM 9.4 mg/dL (8.5-10.1); CARBON DIOXIDE 32 mmol/L (21-32); CHLORIDE 107 mmol/L (98-107); CREATININE 0.8 mg/dL (0.7-1.3); GLUCOSE 100 mg/dL (70-99); POTASSIUM 3.9 mmol/L (3.5-5.1); SODIUM 147 mmol/L (136-145); TOTAL BILIRUBIN 1.3 mg/dL (0.2-1.0); TOTAL PROTEIN 7.3 g/dL (6.4-8.2); VAL ACID 14 mcg/mL (50-100)
[2019-03-31 16:27] VITALS: BP 132/87
[2019-03-31] MEDS: ALPRAZolam 0.25 MG TABLET PO SCH ×2 (16:27→20:39)
[2019-03-31] MEDS: MIRTAZAPINE 7.5 MG TABLET. PO SCH (20:36)
[2019-03-31] MEDS: traZODone 50 MG TABLET. PO SCH (20:37)
--- NOTE | 2019-03-31 22:24 | PDOC ---
Exam Note: Sebastien Note: Please also refer to the separate dictated note~for this date of service dictated separately.~Patient seen individually. Discussed the patient with Nursing staff reviewed the chart.~Reviewed interim history and current functioning. Reviewed vital signs,~Labs/ Radiology~and current medications noted below. Continue current treatment with the changes noted in the dictated addendum note Assessment: Vital Signs/I&O: Vital Signs Date Time Temp Pulse Resp B/P (MAP) Pulse Ox O2 Delivery O2 Flow Rate FiO2 03/31/19 16:27 97.1 57 18 132/87 (102) 100 03/29/19 06:08 Room Air I & O 03/30/19 03/30/19 03/31/19 14:59 22:59 06:59 Intake Total 600 ml 0 ml 0 ml Balance 600 ml 0 ml 0 ml Labs: Laboratory Tests Test 03/31/19 15:18 White Blood Count 3.5 x10^3/uL (4.0-11.0) L Red Blood Count 4.05 x10^6/uL (4.30-5.70) L Hemoglobin 12.0 g/dL (13.0-17.5) L Hematocrit 36.6 % (39.0-53.0) L Mean Corpuscular Volume 90 fL (79-100) Mean Corpuscular Hemoglobin 30 pg (25-35) Mean Corpuscular Hemoglobin Concent 33 g/dL (31-37) Red Cell Distribution Width 15.3 % (11.5-14.5) H Platelet Count 326 x10^3/uL (140-400) Neutrophils (%) (Auto) 55 % (31-73) Lymphocytes (%) (Auto) 24 % (24-48) Monocytes (%) (Auto) 14 % (0-9) H Eosinophils (%) (Auto) 5 % (0-3) H Basophils (%) (Auto) 2 % (0-3) Neutrophils # (Auto) 1.9 x10^3uL (1.8-7.7) Lymphocytes # (Auto) 0.8 x10^3/uL (1.0-4.8) L Monocytes # (Auto) 0.5 x10^3/uL (0.0-1.1) Eosinophils # (Auto) 0.2 x10^3/uL (0.0-0.7) Basophils # (Auto) 0.1 x10^3/uL (0.0-0.2) Sodium Level 147 mmol/L (136-145) H Potassium Level 3.9 mmol/L (3.5-5.1) Chloride Level 107 mmol/L (98-107) Carbon Dioxide Level 32 mmol/L (21-32) Anion Gap 8 (6-14) Blood Urea Nitrogen 21 mg/dL (8-26) Creatinine 0.8 mg/dL (0.7-1.3) Estimated GFR (Cockcroft-Gault) 95.0 BUN/Creatinine Ratio 26 (6-20) H Glucose Level 100 mg/dL (70-99) H Calcium Level 9.4 mg/dL (8.5-10.1) Total Bilirubin 1.3 mg/dL (0.2-1.0) H Aspartate Amino Transferase (AST) 23 U/L (15-37) Alanine Aminotransferase (ALT) 27 U/L (16-63) Alkaline Phosphatase 98 U/L (46-116) Total Protein 7.3 g/dL (6.4-8.2) Albumin 3.9 g/dL (3.4-5.0) Albumin/Globulin Ratio 1.1 (1.0-1.7) Valproic Acid Level 14 mcg/mL (50-100) L Valproic Acid Last Dose Date 03/30/2019 Valproic Acid Last Dose Time 2100 Current Medications: I have reviewed the current psychotropics carefully including drug interactions. Risk benefit ratio favors no change other than as noted in my dictated progress note. Diagnosis: Problems: (1) Anxiety disorder (2) Major neurocognitive disorder (3) Dementia in Alzheimer's disease with delusions (4) Dementia in Alzheimer's disease with depression (5) Dementia, vascular, with delusions (6) Dementia, vascular, with depression (7) Impulse control disorder CECILIO RECINOS MD Mar 31, 2019 22:24
[2019-04-01 05:59] VITALS: BP 164/94
[2019-04-01] MEDS: HALOPERIDOL LACT 5 MG/ML VIAL. IM SCH ×3 (09:00→13:10)
[2019-04-01] MEDS: FAMOTIDINE 20 MG TABLET PO SCH ×2 (09:59→21:05)
[2019-04-01] MEDS: DIVALPROEX 125 MG CAP.SPRINK PO SCH ×2 (10:01→21:06)
[2019-04-01] MEDS: FOLIC ACID 1 MG TABLET PO SCH (10:01)
[2019-04-01] MEDS: THIAMINE 100 MG TABLET. PO SCH (10:01)
[2019-04-01] MEDS: levETIRAcetam 500 MG TABLET PO SCH ×2 (10:01→21:05)
[2019-04-01] MEDS: ACETAMINOPHEN 325 MG TABLET PO SCH ×2 (10:02→21:05)
[2019-04-01] MEDS: CITALOPRAM 20 MG TABLET. PO SCH (10:02)
[2019-04-01] MEDS: ASPIRIN 81 MG TAB.CHEW PO SCH (10:02)
[2019-04-01] MEDS: NICOTINE 7MG PATCH. TD SCH (10:03)
[2019-04-01] MEDS: ALPRAZolam 0.25 MG TABLET PO SCH (10:04)
[2019-04-01 15:39] VITALS: BP 82/55
[2019-04-01] MEDS: ACETAMINOPHEN 325 MG TABLET PO PRN (17:29)
[2019-04-01] MEDS ORDERED: IV NORMAL SALINE 500ML 500 ML IV ONE (21:00)
[2019-04-01] MEDS: MIRTAZAPINE 7.5 MG TABLET. PO SCH (21:05)
[2019-04-01] MEDS: traZODone 50 MG TABLET. PO SCH (21:05)
[2019-04-01 21:47] LABS: HEMATOCRIT 32.6 % (39.0-53.0); HEMOGLOBIN 10.7 g/dL (13.0-17.5); RED BLOOD COUNT 3.55 x10^6/uL (4.30-5.70); RED CELL DISTRIBUTION WIDTH 15.1 % (11.5-14.5); WHITE BLOOD COUNT 4.2 x10^3/uL (4.0-11.0)
[2019-04-01 21:49] LABS: ALBUMIN 3.4 g/dL (3.4-5.0); ALBUMIN/GLOBULIN RATIO 1.1 (1.0-1.7); CALCIUM 8.5 mg/dL (8.5-10.1); CREATININE 1.7 mg/dL (0.7-1.3); GFR 39.8; POTASSIUM 3.8 mmol/L (3.5-5.1); TOTAL BILIRUBIN 0.7 mg/dL (0.2-1.0); TOTAL PROTEIN 6.5 g/dL (6.4-8.2)
[2019-04-01] MEDS: hydrOXYzine HCL 25 MG TABLET PO PRN (22:01)
--- NOTE | 2019-04-01 22:37 | PDOC ---
Exam Note: Sebastien Note: Please also refer to the separate dictated note~for this date of service dictated separately.~Patient seen individually. Discussed the patient with Nursing staff reviewed the chart.~Reviewed interim history and current functioning. Reviewed vital signs,~Labs/ Radiology~and current medications noted below. Continue current treatment with the changes noted in the dictated addendum note Assessment: Vital Signs/I&O: Vital Signs Date Time Temp Pulse Resp B/P (MAP) Pulse Ox O2 Delivery O2 Flow Rate FiO2 04/01/19 15:39 97.6 90 18 82/55 (64) 97 03/29/19 06:08 Room Air I & O 03/31/19 03/31/19 04/01/19 14:59 22:59 06:59 Intake Total 0 ml 240 ml 0 ml Balance 0 ml 240 ml 0 ml Labs: Laboratory Tests Test 04/01/19 21:14 White Blood Count 4.2 x10^3/uL (4.0-11.0) Red Blood Count 3.55 x10^6/uL (4.30-5.70) L Hemoglobin 10.7 g/dL (13.0-17.5) L Hematocrit 32.6 % (39.0-53.0) L Mean Corpuscular Volume 92 fL (79-100) Mean Corpuscular Hemoglobin 30 pg (25-35) Mean Corpuscular Hemoglobin Concent 33 g/dL (31-37) Red Cell Distribution Width 15.1 % (11.5-14.5) H Platelet Count 269 x10^3/uL (140-400) Sodium Level 146 mmol/L (136-145) H Potassium Level 3.8 mmol/L (3.5-5.1) Chloride Level 108 mmol/L (98-107) H Carbon Dioxide Level 27 mmol/L (21-32) Anion Gap 11 (6-14) Blood Urea Nitrogen 35 mg/dL (8-26) H Creatinine 1.7 mg/dL (0.7-1.3) H Estimated GFR (Cockcroft-Gault) 39.8 BUN/Creatinine Ratio 21 (6-20) H Glucose Level 108 mg/dL (70-99) H Lactic Acid Level 1.8 mmol/L (0.4-2.0) Calcium Level 8.5 mg/dL (8.5-10.1) Total Bilirubin 0.7 mg/dL (0.2-1.0) Aspartate Amino Transferase (AST) 29 U/L (15-37) Alanine Aminotransferase (ALT) 31 U/L (16-63) Alkaline Phosphatase 83 U/L (46-116) Total Protein 6.5 g/dL (6.4-8.2) Albumin 3.4 g/dL (3.4-5.0) Albumin/Globulin Ratio 1.1 (1.0-1.7) Current Medications: Meds: Current Medications Medications (Trade) Dose Ordered Sig/Moo Route PRN Reason Start Time Stop Time Status Last Admin Dose Admin Divalproex Sodium (Depakote Sprinkles) 500 mg BID PO 04/01/19 21:00 04/01/19 21:06 Sodium Chloride 500 ml @ 0 mls/hr 1X ONCE IV 04/01/19 21:00 04/01/19 21:01 DC 04/01/19 22:12 I have reviewed the current psychotropics carefully including drug interactions. Risk benefit ratio favors no change other than as noted in my dictated progress note. Diagnosis: Problems: (1) Medical clearance for psychiatric admission (2) Anxiety disorder (3) Major neurocognitive disorder (4) Dementia in Alzheimer's disease with delusions (5) Dementia in Alzheimer's disease with depression (6) Dementia, vascular, with delusions (7) Dementia, vascular, with depression (8) Impulse control disorder (9) Hx of seizure disorder CECILIO RECINOS MD Apr 01, 2019 22:37
--- NOTE | 2019-04-01 23:05 | PN ---
DATE: 03/31/2019 PSYCHIATRIC PROGRESS NOTE This late entry, 03/31, covers elements not covered in my initial note. SUBJECTIVE: I met with the patient evening of 03/31, staffed at treatment team meeting with the entire team in the morning. The patient slept 2-1/4 hours previous night. He does have expressive aphasia. Appetite 50-75%. At the treatment team meeting, the patient's , Elaine, attended the conference. We discussed the patient's history, diagnosis, medications, need for placement rather than her desire to take him home. He has been quite confused, intermittently agitated. His was tearful over the phone. If he does return home, social service staff discussed about [facility] program being involved in his care. REVIEW OF SYSTEMS: No CV, , pulmonary, eye, ENT system symptoms on review. Reliability poor. MENTAL STATUS EXAM: Oriented to himself. Insight, judgment, recent and remote memory, attention, concentration, fund of knowledge poor, consistent with his diagnosis mentioned in my initial note. PLAN: No change from initial note. We will draw CBC, CMP, valproic acid level on 03/31 and then adjust his Depakote thereafter, rest unchanged, and then we will taper the Keppra after CECILIO RECINOS MD DR: EVETTE/abdirahman JOB#: [id number] / [id number]
--- NOTE | 2019-04-01 23:17 | PN ---
DATE: 03/30/2019 PSYCHIATRIC PROGRESS NOTE This is a late entry on 03/30/2019, covers elements not covered in my initial note. SUBJECTIVE: I met with the patient evening of 03/30/2019. The patient slept just 1-1/2 hours previous night. He has been agitated, had to be in the vest hallway to reduce the stimuli and his oral psychotropics were ineffective. He was removing his clothes, totally unmanageable and we started him on scheduled IM Haldol 2 mg daily, not as a chemical restrain, but since the oral route was ineffective, this is being used intramuscularly. REVIEW OF SYSTEMS: No CV, , pulmonary, eye, ENT system symptoms on review. Reliability poor. MENTAL STATUS EXAM: Oriented to himself. Insight, judgment, recent and remote memory, attention, concentration, fund of knowledge poor, consistent with his diagnosis mentioned in my initial note. PLAN: Start Remeron 7.5 mg p.o. at bedtime for his insomnia, trazodone may be repeated x 1 at 50 mg along with the 50 mg scheduled at bedtime for his insomnia. We will check a CBC, CMP, valproic acid level in the morning of 03/31/2019 and then adjust the Depakote. Continue rest unchanged for now. CECILIO RECINOS MD DR: EVETTE/abdirahman JOB#: [id number] / [id number]
[2019-04-02] MEDS: IV NORMAL SALINE 1,000ML 1,000 ML IV SCH ×2 (00:51→11:30)
[2019-04-02 03:08] VITALS: BP 166/82
[2019-04-02] MEDS: LEVOTHYROXINE 150 MCG TABLET PO SCH (05:06)
[2019-04-02 05:32] VITALS: BP 160/88
[2019-04-02] MEDS: CITALOPRAM 20 MG TABLET. PO SCH (07:48)
[2019-04-02] MEDS: levETIRAcetam 500 MG TABLET PO SCH ×2 (07:49→20:04)
[2019-04-02] MEDS: FOLIC ACID 1 MG TABLET PO SCH (07:49)
[2019-04-02] MEDS: DIVALPROEX 125 MG CAP.SPRINK PO SCH ×2 (07:49→20:04)
[2019-04-02] MEDS: FAMOTIDINE 20 MG TABLET PO SCH ×2 (07:50→20:04)
[2019-04-02] MEDS: ACETAMINOPHEN 325 MG TABLET PO SCH ×2 (07:50→20:04)
[2019-04-02] MEDS: THIAMINE 100 MG TABLET. PO SCH (07:50)
[2019-04-02] MEDS: NICOTINE 7MG PATCH. TD SCH (07:51)
[2019-04-02] MEDS: ALPRAZolam 0.25 MG TABLET PO SCH (07:51)
[2019-04-02] MEDS: ASPIRIN 81 MG TAB.CHEW PO SCH (07:59)
[2019-04-02 16:26] VITALS: BP 113/71
[2019-04-02] MEDS: traZODone 50 MG TABLET. PO SCH (20:04)
[2019-04-02] MEDS: MIRTAZAPINE 7.5 MG TABLET. PO SCH (20:04)
[2019-04-02] MEDS: HALOPERIDOL LACT 5 MG/ML VIAL. IM SCH ×2 (20:10→20:12)
[2019-04-02] MEDS ORDERED: QUEtiapine 25 MG TABLET. PO ONE (21:00)
--- NOTE | 2019-04-02 23:06 | PDOC ---
Exam Note: Sebastien Note: Please also refer to the separate dictated note~for this date of service dictated separately.~Patient seen individually. Discussed the patient with Nursing staff reviewed the chart.~Reviewed interim history and current functioning. Reviewed vital signs,~Labs/ Radiology~and current medications noted below. Continue current treatment with the changes noted in the dictated addendum note Assessment: Vital Signs/I&O: Vital Signs Date Time Temp Pulse Resp B/P (MAP) Pulse Ox O2 Delivery O2 Flow Rate FiO2 04/02/19 16:26 97.6 66 16 113/71 (85) 99 03/29/19 06:08 Room Air I & O 04/01/19 04/01/19 04/02/19 15:00 23:00 07:00 Intake Total 480 ml 980 ml 100 ml Balance 480 ml 980 ml 100 ml Current Medications: Meds: Current Medications Medications (Trade) Dose Ordered Sig/Moo Route PRN Reason Start Time Stop Time Status Last Admin Dose Admin Sodium Chloride 1,000 ml @ 100 mls/hr Q10H IV 04/02/19 01:30 04/02/19 16:08 DC 04/02/19 00:51 Aspirin (Children'S Aspirin) 162 mg [id number] PO 04/02/19 08:00 04/02/19 07:59 Quetiapine Fumarate (SEROquel) 25 mg 1X ONCE PO 04/02/19 21:00 04/02/19 21:01 DC 04/02/19 21:11 I have reviewed the current psychotropics carefully including drug interactions. Risk benefit ratio favors no change other than as noted in my dictated progress note. Diagnosis: Problems: (1) Medical clearance for psychiatric admission (2) Anxiety disorder (3) Major neurocognitive disorder (4) Dementia in Alzheimer's disease with delusions (5) Dementia in Alzheimer's disease with depression (6) Dementia, vascular, with delusions (7) Dementia, vascular, with depression (8) Impulse control disorder (9) Alcohol dependency CECILIO RECINOS MD Apr 02, 2019 23:05
[2019-04-03 05:51] VITALS: BP 137/86
[2019-04-03] MEDS: LEVOTHYROXINE 150 MCG TABLET PO SCH (05:51)
[2019-04-03] MEDS: levETIRAcetam 500 MG TABLET PO SCH ×2 (10:57→20:17)
[2019-04-03] MEDS: DIVALPROEX 125 MG CAP.SPRINK PO SCH ×2 (10:57→20:17)
[2019-04-03] MEDS: FOLIC ACID 1 MG TABLET PO SCH (10:57)
[2019-04-03] MEDS: ASPIRIN 81 MG TAB.CHEW PO SCH (10:57)
[2019-04-03] MEDS: ACETAMINOPHEN 325 MG TABLET PO SCH ×2 (10:58→20:17)
[2019-04-03] MEDS: THIAMINE 100 MG TABLET. PO SCH (10:58)
[2019-04-03] MEDS: FAMOTIDINE 20 MG TABLET PO SCH ×2 (10:58→20:17)
[2019-04-03] MEDS: QUEtiapine 25 MG TABLET. PO SCH ×3 (10:58→16:52)
[2019-04-03] MEDS: SERTRALINE 50 MG TABLET. PO SCH (10:59)
[2019-04-03] MEDS: ALPRAZolam 0.25 MG TABLET PO SCH (10:59)
[2019-04-03] MEDS: NICOTINE 7MG PATCH. TD SCH (10:59)
[2019-04-03] MEDS: HALOPERIDOL LACT 5 MG/ML VIAL. IM SCH (11:09)
[2019-04-03 17:26] VITALS: BP 99/64
[2019-04-03] MEDS: MIRTAZAPINE 7.5 MG TABLET. PO SCH (20:17)
[2019-04-03] MEDS: traZODone 50 MG TABLET. PO SCH (20:17)
--- NOTE | 2019-04-03 22:12 | PDOC ---
Exam Note: Sebastien Note: Please also refer to the separate dictated note~for this date of service dictated separately.~Patient seen individually. Discussed the patient with Nursing staff reviewed the chart.~Reviewed interim history and current functioning. Reviewed vital signs,~Labs/ Radiology~and current medications noted below. Continue current treatment with the changes noted in the dictated addendum note Assessment: Vital Signs/I&O: Vital Signs Date Time Temp Pulse Resp B/P (MAP) Pulse Ox O2 Delivery O2 Flow Rate FiO2 04/03/19 17:26 97.1 65 18 99/64 (76) 96 04/03/19 05:51 Room Air I & O 04/02/19 04/02/19 04/03/19 15:00 23:00 07:00 Intake Total 240 ml 240 ml 240 ml Balance 240 ml 240 ml 240 ml Current Medications: Meds: Current Medications Medications (Trade) Dose Ordered Sig/Moo Route PRN Reason Start Time Stop Time Status Last Admin Dose Admin Sertraline HCl (Zoloft) 50 mg DAILY PO 04/03/19 09:00 04/03/19 10:59 Quetiapine Fumarate (SEROquel) 12.5 mg TID@0900,1300,1700 PO 04/03/19 09:00 04/03/19 16:52 I have reviewed the current psychotropics carefully including drug interactions. Risk benefit ratio favors no change other than as noted in my dictated progress note. Diagnosis: Problems: (1) Anxiety disorder (2) Major neurocognitive disorder (3) Dementia in Alzheimer's disease with delusions (4) Dementia in Alzheimer's disease with depression (5) Dementia, vascular, with delusions (6) Dementia, vascular, with depression (7) Impulse control disorder CECILIO RECINOS MD Apr 03, 2019 22:12
--- NOTE | 2019-04-03 23:38 | PN ---
DATE: 04/01/2019 PSYCHIATRIC PROGRESS NOTE This late entry 04/01/2019 covers elements not covered in my initial note. SUBJECTIVE: I met with the patient in the evening of 04/01/2019. The patient slept 5 hours and then slept some more in the morning. Gait is unsteady. He did reasonably better until about 3:30 p.m., then was exit seeking, yelling for his . His did visit and he did better after that. REVIEW OF SYSTEMS: No CV, , pulmonary, eye, ENT system symptoms on review. Reliability poor. MENTAL STATUS EXAM: Oriented to himself. Insight, judgment, recent and remote memory, attention, concentration, fund of knowledge poor, consistent with his diagnosis. He does have expressive aphasia. LABORATORY DATA: Reviewed. IMPRESSION: Unchanged from initial note. PLAN: Valproic acid level is 14. We will increase the Depakote Sprinkles from 250 b.i.d. to 500 b.i.d. Check CBC, CMP, valproic acid level in 3 days, and then, once Depakote is therapeutic, we will taper and stop the Keppra since this could be worsening his agitation. Sodium is 147. CECILIO RECINOS MD DR: EVETTE/abdirahman JOB#: [id number] / [id number]
--- NOTE | 2019-04-03 23:52 | PN ---
DATE: 04/02/2019 This late entry 04/02/2019 covers the elements not covered in my initial note. SUBJECTIVE: I met with the patient in the evening of 04/02/2019. The patient slept 2-3/4 hours previous night. Haldol IM has been held for 2 days. He has been wandering, exit seeking, difficult to redirect and did receive it today on 04/02/2019. REVIEW OF SYSTEMS: No CV, , pulmonary, eye, ENT system symptoms on review. Reliability poor. MENTAL STATUS EXAM: Oriented to himself. Insight, judgment, recent and remote memory, attention, concentration, fund of knowledge poor, consistent with his diagnosis mentioned in my initial note. PLAN: Change Celexa 10 mg a day to Zoloft 50 mg a day, start Seroquel 12.5 mg 9 a.m., 1:00 p.m., 5:00 p.m. The patient was in the [facility] as I met with him in the evening. We will go ahead and give him 1 single dosage of 25 mg at bedtime on 04/02/2019, and then start the above regimen on 04/03/2019. Continue trazodone, Keppra, Xanax, along with Zyprexa p.r.n., and Depakote. Valproic acid level subtherapeutic at 14. We will adjust gradually as clinically indicated. CECILIO RECINOS MD DR: EVETTE/abdirahman JOB#: [id number] / [id number]
[2019-04-04] MEDS: LEVOTHYROXINE 150 MCG TABLET PO SCH (05:57)
[2019-04-04 06:04] VITALS: BP 144/87
[2019-04-04] MEDS: ASPIRIN 81 MG TAB.CHEW PO SCH (07:50)
[2019-04-04] MEDS: DIVALPROEX 125 MG CAP.SPRINK PO SCH ×2 (07:50→19:45)
[2019-04-04] MEDS: FOLIC ACID 1 MG TABLET PO SCH (07:50)
[2019-04-04] MEDS: FAMOTIDINE 20 MG TABLET PO SCH ×2 (07:51→19:45)
[2019-04-04] MEDS: levETIRAcetam 500 MG TABLET PO SCH ×2 (07:51→19:45)
[2019-04-04] MEDS: QUEtiapine 25 MG TABLET. PO SCH ×3 (07:51→17:11)
[2019-04-04] MEDS: ACETAMINOPHEN 325 MG TABLET PO SCH ×2 (07:51→19:45)
[2019-04-04] MEDS: THIAMINE 100 MG TABLET. PO SCH (07:52)
[2019-04-04] MEDS: NICOTINE 7MG PATCH. TD SCH (07:52)
[2019-04-04] MEDS: SERTRALINE 50 MG TABLET. PO SCH (07:52)
[2019-04-04] MEDS: ALPRAZolam 0.25 MG TABLET PO SCH (07:54)
[2019-04-04 16:04] VITALS: BP 98/56
[2019-04-04] MEDS: traZODone 50 MG TABLET. PO SCH (19:45)
[2019-04-04] MEDS: MIRTAZAPINE 7.5 MG TABLET. PO SCH (19:45)
--- NOTE | 2019-04-04 20:33 | PN ---
DATE: 04/03/2019 PSYCHIATRIC PROGRESS NOTE This is a late entry 04/03/2019, covers the elements not covered in my initial note. SUBJECTIVE: The patient slept 6-1/2 hours previous night. He was quite agitated previous evening, received IM Haldol and Seroquel. Took his medications crushed, woke up at 10:30 a.m. arguing, yelling, spitting out his meds in the morning, quite labile, confused. REVIEW OF SYSTEMS: No CV, , pulmonary, eye, ENT system symptoms on review. Reliability poor. MENTAL STATUS EXAM: Oriented to himself. Insight, judgment, recent and remote memory, attention, concentration, fund of knowledge poor, consistent with his diagnosis mentioned in my initial note. PLAN: Increase the 1:00 p.m. Seroquel from 12.5 mg to 25 mg. Continue Haldol 2 mg IM daily. Depakote is being adjusted. Repeat labs level on 04/05/2019. MAN Gladis RECINOS MD DR: EVETTE/abdirahman JOB#: [id number] / [id number]
--- NOTE | 2019-04-04 22:32 | PDOC ---
Exam Note: Sebastien Note: Please also refer to the separate dictated note~for this date of service dictated separately.~Patient seen individually. Discussed the patient with Nursing staff reviewed the chart.~Reviewed interim history and current functioning. Reviewed vital signs,~Labs/ Radiology~and current medications noted below. Continue current treatment with the changes noted in the dictated addendum note Assessment: Vital Signs/I&O: Vital Signs Date Time Temp Pulse Resp B/P (MAP) Pulse Ox O2 Delivery O2 Flow Rate FiO2 04/04/19 16:04 97.3 64 20 98/56 (70) 99 04/03/19 05:51 Room Air I & O 04/03/19 04/03/19 04/04/19 14:59 22:59 06:59 Intake Total 360 ml 340 ml Balance 360 ml 340 ml Current Medications: Meds: Current Medications Medications (Trade) Dose Ordered Sig/Moo Route PRN Reason Start Time Stop Time Status Last Admin Dose Admin Quetiapine Fumarate (SEROquel) 12.5 mg BID@0900,1700 PO 04/04/19 09:00 04/04/19 17:11 Quetiapine Fumarate (SEROquel) 25 mg DAILY@1300 PO 04/04/19 13:00 04/04/19 13:31 I have reviewed the current psychotropics carefully including drug interactions. Risk benefit ratio favors no change other than as noted in my dictated progress note. Diagnosis: Problems: (1) Anxiety disorder (2) Major neurocognitive disorder (3) Dementia in Alzheimer's disease with delusions (4) Dementia in Alzheimer's disease with depression (5) Dementia, vascular, with delusions (6) Dementia, vascular, with depression (7) Impulse control disorder CECILIO RECINOS MD Apr 04, 2019 22:31
[2019-04-05] MEDS: LEVOTHYROXINE 150 MCG TABLET PO SCH (04:04)
[2019-04-05 04:20] VITALS: BP 142/81
[2019-04-05 08:06] LABS: ALBUMIN 3.2 g/dL (3.4-5.0); ALK PHOS 81 U/L (46-116); ALT (SGPT) 36 U/L (16-63); ANION GAP 8 (6-14); AST (SGOT) 21 U/L (15-37); BLOOD UREA NITROGEN 32 mg/dL (8-26); BUN/CREATININE RATIO 32 (6-20); CALCIUM 8.8 mg/dL (8.5-10.1); CARBON DIOXIDE 30 mmol/L (21-32); CHLORIDE 111 mmol/L (98-107); GFR 73.5; GLUCOSE 93 mg/dL (70-99); POTASSIUM 3.8 mmol/L (3.5-5.1); SODIUM 149 mmol/L (136-145); TOTAL BILIRUBIN 0.6 mg/dL (0.2-1.0); TOTAL PROTEIN 6.4 g/dL (6.4-8.2)
[2019-04-05 08:11] LABS: VAL ACID 58 mcg/mL (50-100)
[2019-04-05 08:37] LABS: BASO % 1 % (0-3); EOS # 0.3 x10^3/uL (0.0-0.7); EOS % 11 % (0-3); HEMATOCRIT 30.1 % (39.0-53.0); HEMOGLOBIN 9.8 g/dL (13.0-17.5); LYMPH # 0.8 x10^3/uL (1.0-4.8); LYMPH % 36 % (24-48); MEAN CORPUSCULAR HEMOGLOBIN 30 pg (25-35); MEAN CORPUSCULAR HGB CONC 33 g/dL (31-37); MEAN CORPUSCULAR VOLUME 91 fL (79-100); MONO # 0.3 x10^3/uL (0.0-1.1); MONO % 11 % (0-9); NEUT % 41 % (31-73); PLATELET COUNT 268 x10^3/uL (140-400); RED CELL DISTRIBUTION WIDTH 14.8 % (11.5-14.5); WHITE BLOOD COUNT 2.4 x10^3/uL (4.0-11.0)
[2019-04-05] MEDS: THIAMINE 100 MG TABLET. PO SCH (08:37)
[2019-04-05] MEDS: ACETAMINOPHEN 325 MG TABLET PO SCH ×2 (08:37→19:48)
[2019-04-05] MEDS: DIVALPROEX 125 MG CAP.SPRINK PO SCH ×2 (08:37→19:47)
[2019-04-05] MEDS: QUEtiapine 25 MG TABLET. PO SCH ×3 (08:38→17:34)
[2019-04-05] MEDS: levETIRAcetam 500 MG TABLET PO SCH ×2 (08:38→19:47)
[2019-04-05] MEDS: ASPIRIN 81 MG TAB.CHEW PO SCH (08:38)
[2019-04-05] MEDS: SERTRALINE 50 MG TABLET. PO SCH (08:40)
[2019-04-05] MEDS: FAMOTIDINE 20 MG TABLET PO SCH ×2 (08:40→19:48)
[2019-04-05] MEDS: FOLIC ACID 1 MG TABLET PO SCH (08:40)
[2019-04-05] MEDS: ALPRAZolam 0.25 MG TABLET PO SCH (08:43)
[2019-04-05] MEDS: NICOTINE 7MG PATCH. TD SCH (08:44)
[2019-04-05] MEDS: HALOPERIDOL LACT 5 MG/ML VIAL. IM SCH ×2 (08:45→14:57)
[2019-04-05 10:03] LABS: % BANDS 1 % (0-9); % BASOS 2 % (0-3); % EOS 7 % (0-5); % LYMPHS 39 % (24-48); % MONOS 9 % (0-10); % SEGS 42 % (35-66)
[2019-04-05 10:04] LABS: PLT ESTIMATE ADEQUATE (ADEQUATE)
[2019-04-05] MEDS: traZODone 50 MG TABLET. PO SCH (19:47)
[2019-04-05] MEDS: MIRTAZAPINE 7.5 MG TABLET. PO SCH (19:48)
--- NOTE | 2019-04-05 22:32 | PDOC ---
Exam Note: Sebastien Note: Please also refer to the separate dictated note~for this date of service dictated separately.~Patient seen individually. Discussed the patient with Nursing staff reviewed the chart.~Reviewed interim history and current functioning. Reviewed vital signs,~Labs/ Radiology~and current medications noted below. Continue current treatment with the changes noted in the dictated addendum note Assessment: Vital Signs/I&O: Vital Signs Date Time Temp Pulse Resp B/P (MAP) Pulse Ox O2 Delivery O2 Flow Rate FiO2 04/05/19 04:20 97.4 54 16 142/81 (101) 100 Room Air I & O 04/04/19 04/04/19 04/05/19 15:00 23:00 07:00 Intake Total 660 ml 480 ml 100 ml Balance 660 ml 480 ml 100 ml Labs: Laboratory Tests Test 04/05/19 05:00 04/05/19 06:49 Sodium Level 149 mmol/L (136-145) H Potassium Level 3.8 mmol/L (3.5-5.1) Chloride Level 111 mmol/L (98-107) H Carbon Dioxide Level 30 mmol/L (21-32) Anion Gap 8 (6-14) Blood Urea Nitrogen 32 mg/dL (8-26) H Creatinine 1.0 mg/dL (0.7-1.3) Estimated GFR (Cockcroft-Gault) 73.5 BUN/Creatinine Ratio 32 (6-20) H Glucose Level 93 mg/dL (70-99) Calcium Level 8.8 mg/dL (8.5-10.1) Total Bilirubin 0.6 mg/dL (0.2-1.0) Aspartate Amino Transferase (AST) 21 U/L (15-37) Alanine Aminotransferase (ALT) 36 U/L (16-63) Alkaline Phosphatase 81 U/L (46-116) Total Protein 6.4 g/dL (6.4-8.2) Albumin 3.2 g/dL (3.4-5.0) L Albumin/Globulin Ratio 1.0 (1.0-1.7) Valproic Acid Level 58 mcg/mL (50-100) Valproic Acid Last Dose Date 04/04/19 Valproic Acid Last Dose Time 2100 White Blood Count 2.4 x10^3/uL (4.0-11.0) L Red Blood Count 3.30 x10^6/uL (4.30-5.70) L Hemoglobin 9.8 g/dL (13.0-17.5) L Hematocrit 30.1 % (39.0-53.0) L Mean Corpuscular Volume 91 fL (79-100) Mean Corpuscular Hemoglobin 30 pg (25-35) Mean Corpuscular Hemoglobin Concent 33 g/dL (31-37) Red Cell Distribution Width 14.8 % (11.5-14.5) H Platelet Count 268 x10^3/uL (140-400) Neutrophils (%) (Auto) 41 % (31-73) Lymphocytes (%) (Auto) 36 % (24-48) Monocytes (%) (Auto) 11 % (0-9) H Eosinophils (%) (Auto) 11 % (0-3) H Basophils (%) (Auto) 1 % (0-3) Neutrophils # (Auto) 1.0 x10^3uL (1.8-7.7) L Lymphocytes # (Auto) 0.8 x10^3/uL (1.0-4.8) L Monocytes # (Auto) 0.3 x10^3/uL (0.0-1.1) Eosinophils # (Auto) 0.3 x10^3/uL (0.0-0.7) Basophils # (Auto) 0.0 x10^3/uL (0.0-0.2) Segmented Neutrophils % 42 % (35-66) Band Neutrophils % 1 % (0-9) Lymphocytes % 39 % (24-48) Monocytes % 9 % (0-10) Eosinophils % 7 % (0-5) H Basophils % 2 % (0-3) Platelet Estimate Adequate (ADEQUATE) Large Platelets Occ Current Medications: Meds: Current Medications Medications (Trade) Dose Ordered Sig/Moo Route PRN Reason Start Time Stop Time Status Last Admin Dose Admin Levetiracetam (Keppra) 1,000 mg HS PO 04/05/19 21:00 04/09/19 20:59 04/05/19 19:49 I have reviewed the current psychotropics carefully including drug interactions. Risk benefit ratio favors no change other than as noted in my dictated progress note. Diagnosis: Problems: (1) Anxiety disorder (2) Major neurocognitive disorder (3) Dementia in Alzheimer's disease with delusions (4) Dementia in Alzheimer's disease with depression (5) Dementia, vascular, with delusions (6) Dementia, vascular, with depression (7) Impulse control disorder (8) Hx of seizure disorder CECILIO RECINOS MD Apr 05, 2019 22:32
--- NOTE | 2019-04-05 23:06 | PN ---
DATE: 04/04/2019 PSYCHIATRIC PROGRESS NOTE This late entry, 04/04, covers elements not covered in my initial note. SUBJECTIVE: I met with the patient evening of 04/04. The patient slept 7-1/4 hours previous night. He had a better day. He has been getting less compliant with medications. No PRNs given. No IM Haldol given on 04/04. REVIEW OF SYSTEMS: No CV, , pulmonary, eye, ENT system symptoms on review. Reliability poor. Gait unsteady, in wheelchair. MENTAL STATUS EXAM: Oriented to himself. Insight, judgment, recent and remote memory, attention, concentration, fund of knowledge poor, consistent with his diagnosis mentioned in my initial note. PLAN: No change from initial note. MAN Gladis RECINOS MD DR: EVETET/abdirahman JOB#: [id number] / [id number]
[2019-04-06] MEDS: LEVOTHYROXINE 150 MCG TABLET PO SCH (05:39)
[2019-04-06 05:44] VITALS: BP 142/84
[2019-04-06] MEDS: NICOTINE 7MG PATCH. TD SCH (09:32)
[2019-04-06] MEDS: ASPIRIN 81 MG TAB.CHEW PO SCH (09:32)
[2019-04-06] MEDS: DIVALPROEX 125 MG CAP.SPRINK PO SCH ×2 (09:32→19:56)
[2019-04-06] MEDS: FOLIC ACID 1 MG TABLET PO SCH (09:33)
[2019-04-06] MEDS: THIAMINE 100 MG TABLET. PO SCH (09:33)
[2019-04-06] MEDS: QUEtiapine 25 MG TABLET. PO SCH ×3 (09:33→17:47)
[2019-04-06] MEDS: SERTRALINE 50 MG TABLET. PO SCH (09:33)
[2019-04-06] MEDS: FAMOTIDINE 20 MG TABLET PO SCH ×2 (09:34→19:57)
[2019-04-06] MEDS: levETIRAcetam 500 MG TABLET PO SCH ×2 (09:35→19:56)
[2019-04-06] MEDS: ALPRAZolam 0.25 MG TABLET PO SCH (09:36)
[2019-04-06] MEDS: ACETAMINOPHEN 325 MG TABLET PO SCH ×2 (09:36→19:56)
[2019-04-06 15:42] VITALS: BP 128/77
[2019-04-06] MEDS: HALOPERIDOL LACT 5 MG/ML VIAL. IM SCH (19:20)
[2019-04-06] MEDS: MIRTAZAPINE 7.5 MG TABLET. PO SCH (19:56)
[2019-04-06] MEDS: traZODone 50 MG TABLET. PO SCH (19:57)
--- NOTE | 2019-04-06 20:56 | PDOC ---
Exam Note: Sebastien Note: Please also refer to the separate dictated note~for this date of service dictated separately.~Patient seen individually. Discussed the patient with Nursing staff reviewed the chart.~Reviewed interim history and current functioning. Reviewed vital signs,~Labs/ Radiology~and current medications noted below. Continue current treatment with the changes noted in the dictated addendum note Assessment: Vital Signs/I&O: Vital Signs Date Time Temp Pulse Resp B/P (MAP) Pulse Ox O2 Delivery O2 Flow Rate FiO2 04/06/19 15:42 97.0 61 18 128/77 (94) 98 04/06/19 05:44 Room Air I & O 04/05/19 04/05/19 04/06/19 15:00 23:00 07:00 Intake Total 60 ml 340 ml Balance 60 ml 340 ml Current Medications: Meds: Current Medications Medications (Trade) Dose Ordered Sig/Moo Route PRN Reason Start Time Stop Time Status Last Admin Dose Admin Levetiracetam (Keppra) 500 mg DAILY PO 04/06/19 09:00 04/08/19 08:59 04/06/19 09:36 Levetiracetam (Keppra) 1,000 mg HS PO 04/05/19 21:00 04/09/19 20:59 04/06/19 19:57 I have reviewed the current psychotropics carefully including drug interactions. Risk benefit ratio favors no change other than as noted in my dictated progress note. Diagnosis: Problems: (1) Medical clearance for psychiatric admission (2) Anxiety disorder (3) Major neurocognitive disorder (4) Dementia in Alzheimer's disease with delusions (5) Dementia in Alzheimer's disease with depression (6) Dementia, vascular, with delusions (7) Dementia, vascular, with depression (8) Impulse control disorder CECILIO RECINOS MD Apr 06, 2019 20:56
--- NOTE | 2019-04-06 23:12 | PN ---
DATE: 04/05/2019 PSYCHIATRIC PROGRESS NOTE This late entry 04/05/2019 covers elements not covered in my initial note. SUBJECTIVE: I met with the patient in the evening of 04/05/2019. The patient slept 6-1/2 hours previous night. LABORATORY DATA: Valproic acid level 58, therapeutic. Sodium 149. Deferred to Dr. Posada. At 3:00 p.m., he was agitated, tried to urinate in the hallway, yelling that he could not urinate. Psychotic, paranoid. He received IM Haldol scheduled, which had been held earlier today and then did better after that. Valproic acid level is therapeutic. REVIEW OF SYSTEMS: No CV, , pulmonary, eye, ENT system symptoms on review. Reliability poor. MENTAL STATUS EXAM: Oriented to himself. Insight, judgment, recent and remote memory, attention, concentration, fund of knowledge poor consistent with his diagnosis. IMPRESSION: Major neurocognitive disorder; Alzheimer; vascular with delusion; depression; behavioral disturbance; anxiety disorder, unspecified; impulse control disorder, unspecified. PLAN: Now that the valproic acid level is therapeutic, we will taper the Keppra by 500 mg every 2-3 days, still it is discontinued. Dr. Cordero, neurologist had approved this. Continue rest of his psychotropics. The Keppra could be worsening his agitation and we will see how he does with this change. MAN Gladis RECINOS MD DR: EVETTE/abdirahman JOB#: [id number] / [id number]
[2019-04-07 06:15] VITALS: BP 134/84
[2019-04-07] MEDS: LEVOTHYROXINE 150 MCG TABLET PO SCH (06:21)
[2019-04-07] MEDS: NICOTINE 7MG PATCH. TD SCH (08:12)
[2019-04-07] MEDS: DIVALPROEX 125 MG CAP.SPRINK PO SCH ×2 (08:12→19:40)
[2019-04-07] MEDS: ALPRAZolam 0.25 MG TABLET PO SCH (08:13)
[2019-04-07] MEDS: ASPIRIN 81 MG TAB.CHEW PO SCH (08:13)
[2019-04-07] MEDS: FOLIC ACID 1 MG TABLET PO SCH (08:13)
[2019-04-07] MEDS: levETIRAcetam 500 MG TABLET PO SCH ×2 (08:13→19:40)
[2019-04-07] MEDS: THIAMINE 100 MG TABLET. PO SCH (08:13)
[2019-04-07] MEDS: SERTRALINE 50 MG TABLET. PO SCH (08:13)
[2019-04-07] MEDS: QUEtiapine 25 MG TABLET. PO SCH ×3 (08:14→16:36)
[2019-04-07] MEDS: ACETAMINOPHEN 325 MG TABLET PO SCH ×2 (08:14→19:40)
[2019-04-07] MEDS: FAMOTIDINE 20 MG TABLET PO SCH ×2 (08:14→19:40)
[2019-04-07] MEDS: HALOPERIDOL LACT 5 MG/ML VIAL. IM SCH (10:00)
[2019-04-07 16:13] VITALS: BP 119/47
[2019-04-07] MEDS: traZODone 50 MG TABLET. PO SCH (19:40)
[2019-04-07] MEDS: MIRTAZAPINE 7.5 MG TABLET. PO SCH (19:40)
--- NOTE | 2019-04-07 22:29 | PDOC ---
Exam Note: Sebastien Note: Please also refer to the separate dictated note~for this date of service dictated separately.~Patient seen individually. Discussed the patient with Nursing staff reviewed the chart.~Reviewed interim history and current functioning. Reviewed vital signs,~Labs/ Radiology~and current medications noted below. Continue current treatment with the changes noted in the dictated addendum note Assessment: Vital Signs/I&O: Vital Signs Date Time Temp Pulse Resp B/P (MAP) Pulse Ox O2 Delivery O2 Flow Rate FiO2 04/07/19 16:13 97.3 71 16 119/47 (71) 99.0 04/07/19 06:15 99 Room Air I & O 04/06/19 04/06/19 04/07/19 15:00 23:00 07:00 Intake Total 600 ml 240 ml 120 ml Balance 600 ml 240 ml 120 ml Current Medications: I have reviewed the current psychotropics carefully including drug interactions. Risk benefit ratio favors no change other than as noted in my dictated progress note. Diagnosis: Problems: (1) Anxiety disorder (2) Major neurocognitive disorder (3) Dementia in Alzheimer's disease with delusions (4) Dementia in Alzheimer's disease with depression (5) Dementia, vascular, with delusions (6) Dementia, vascular, with depression (7) Impulse control disorder CECILIO RECINOS MD Apr 07, 2019 22:29
[2019-04-08] MEDS: LEVOTHYROXINE 150 MCG TABLET PO SCH (05:07)
[2019-04-08 06:02] VITALS: BP 147/91
[2019-04-08] MEDS: THIAMINE 100 MG TABLET. PO SCH ×3 (08:42→12:06)
[2019-04-08] MEDS: QUEtiapine 25 MG TABLET. PO SCH ×5 (08:42→16:33)
[2019-04-08] MEDS: DIVALPROEX 125 MG CAP.SPRINK PO SCH ×2 (08:45→19:27)
[2019-04-08] MEDS: FAMOTIDINE 20 MG TABLET PO SCH ×4 (08:46→19:26)
[2019-04-08] MEDS: ACETAMINOPHEN 325 MG TABLET PO SCH ×2 (08:46→19:27)
[2019-04-08] MEDS: SERTRALINE 50 MG TABLET. PO SCH (08:46)
[2019-04-08] MEDS: FOLIC ACID 1 MG TABLET PO SCH ×3 (08:46→12:06)
[2019-04-08] MEDS: ASPIRIN 81 MG TAB.CHEW PO SCH (08:46)
[2019-04-08] MEDS: NICOTINE 7MG PATCH. TD SCH (08:47)
[2019-04-08] MEDS: ALPRAZolam 0.25 MG TABLET PO SCH (08:49)
[2019-04-08] MEDS: HALOPERIDOL LACT 5 MG/ML VIAL. IM SCH (09:12)
[2019-04-08 16:10] VITALS: BP 117/81
[2019-04-08] MEDS: levETIRAcetam 500 MG TABLET PO SCH (19:26)
[2019-04-08] MEDS: MIRTAZAPINE 7.5 MG TABLET. PO SCH (19:26)
[2019-04-08] MEDS: traZODone 50 MG TABLET. PO SCH (19:26)
--- NOTE | 2019-04-08 22:15 | PDOC ---
Exam Note: Sebastien Note: Please also refer to the separate dictated note~for this date of service dictated separately.~Patient seen individually. Discussed the patient with Nursing staff reviewed the chart.~Reviewed interim history and current functioning. Reviewed vital signs,~Labs/ Radiology~and current medications noted below. Continue current treatment with the changes noted in the dictated addendum note Assessment: Vital Signs/I&O: Vital Signs Date Time Temp Pulse Resp B/P (MAP) Pulse Ox O2 Delivery O2 Flow Rate FiO2 04/08/19 16:10 98.0 64 18 117/81 (93) 96 Room Air 04/07/19 16:13 99.0 I & O 04/07/19 04/07/19 04/08/19 14:59 22:59 06:59 Intake Total 480 ml 240 ml 120 ml Balance 480 ml 240 ml 120 ml Current Medications: I have reviewed the current psychotropics carefully including drug interactions. Risk benefit ratio favors no change other than as noted in my dictated progress note. Diagnosis: Problems: (1) Anxiety disorder (2) Major neurocognitive disorder (3) Dementia in Alzheimer's disease with delusions (4) Dementia in Alzheimer's disease with depression (5) Dementia, vascular, with delusions (6) Dementia, vascular, with depression (7) Impulse control disorder CECILIO RECINOS MD Apr 08, 2019 22:15
--- NOTE | 2019-04-08 23:00 | PN ---
DATE: 04/06/2019 PSYCHIATRIC PROGRESS NOTE This late entry, 04/06/2019, covers elements not covered in my initial note. SUBJECTIVE: I met with the patient evening of 04/06/2019. The patient slept 6-1/4 hours previous night. He remains confused, has been wandering, resistive to medications, took it later. LABORATORY DATA: Sodium is increased. Fluids are being pushed. His came to visit him. Prior to that, he was quite agitated at times, but his seemed to calm him down. He was using the word "assholish." REVIEW OF SYSTEMS: No CV, , pulmonary, eye, ENT system symptoms on review. Reliability poor. MENTAL STATUS EXAM: Oriented to himself. Insight, judgment, recent and remote memory, attention, concentration, fund of knowledge poor, consistent with his diagnosis mentioned in my initial note. PLAN: No change from initial note. MAN Gladis RECINOS MD DR: EVETTE/abdirahman JOB#: [id number] / [id number]
--- NOTE | 2019-04-08 23:31 | PN ---
DATE: 04/07/2019 PSYCHIATRIC PROGRESS NOTE This late entry 04/07/2019 covers elements not covered in my initial note. SUBJECTIVE: I met with the patient in the evening of 04/07/2019 and staffed at a treatment team meeting with the entire team in the morning. The patient's , Elaine attended the treatment team meeting and we discussed his history, current psychotropics, progress at length. The patient slept 7 hours. Appetite 50%-75%. He is confused, wandering, checking the doors, disorganized. REVIEW OF SYSTEMS: No CV, , pulmonary, eye, ENT system symptoms on review. Reliability poor. MENTAL STATUS EXAM: Oriented to himself. Insight, judgment, recent and remote memory, attention, concentration, fund of knowledge poor, consistent with his diagnosis mentioned in my initial note. PLAN: The patient's is still quite clear she is going to have the patient home post-discharge. We discussed safety elements and she states she has made special arrangements with locks and will have around the clock help for him. Social Service staff will discuss further with the to help her see all aspects pros and cons of this decision. LABORATORY DATA: Reviewed. PLAN: No change from a psychiatric standpoint, continue current psychotropics. CECILIO RECINOS MD DR: EVETTE/abdirahman JOB#: [id number] / [id number]
[2019-04-09] MEDS: LEVOTHYROXINE 150 MCG TABLET PO SCH (05:03)
[2019-04-09] MEDS: ACETAMINOPHEN 325 MG TABLET PO PRN (05:45)
[2019-04-09 06:28] VITALS: BP 137/72
[2019-04-09] MEDS: NICOTINE 7MG PATCH. TD SCH (08:26)
[2019-04-09] MEDS: ASPIRIN 81 MG TAB.CHEW PO SCH (08:27)
[2019-04-09] MEDS: FOLIC ACID 1 MG TABLET PO SCH (08:27)
[2019-04-09] MEDS: THIAMINE 100 MG TABLET. PO SCH (08:27)
[2019-04-09] MEDS: QUEtiapine 25 MG TABLET. PO SCH ×3 (08:27→16:45)
[2019-04-09] MEDS: DIVALPROEX 125 MG CAP.SPRINK PO SCH ×2 (08:27→19:47)
[2019-04-09] MEDS: HALOPERIDOL LACT 5 MG/ML VIAL. IM SCH (08:27)
[2019-04-09] MEDS: FAMOTIDINE 20 MG TABLET PO SCH ×2 (08:27→19:50)
[2019-04-09] MEDS: SERTRALINE 50 MG TABLET. PO SCH (08:27)
[2019-04-09] MEDS: ALPRAZolam 0.25 MG TABLET PO SCH (08:28)
[2019-04-09] MEDS: ACETAMINOPHEN 325 MG TABLET PO SCH ×2 (08:29→19:48)
[2019-04-09 13:23] LABS: BASO % 1 % (0-3); EOS % 1 % (0-3); HEMATOCRIT 31.4 % (39.0-53.0); HEMOGLOBIN 10.2 g/dL (13.0-17.5); LYMPH % 19 % (24-48); MEAN CORPUSCULAR HEMOGLOBIN 30 pg (25-35); MEAN CORPUSCULAR HGB CONC 33 g/dL (31-37); MEAN CORPUSCULAR VOLUME 91 fL (79-100); MONO # 0.9 x10^3/uL (0.0-1.1); MONO % 18 % (0-9); NEUT # 3.2 x10^3uL (1.8-7.7); NEUT % 62 % (31-73); PLATELET COUNT 273 x10^3/uL (140-400); RED BLOOD COUNT 3.45 x10^6/uL (4.30-5.70); RED CELL DISTRIBUTION WIDTH 15.1 % (11.5-14.5); WHITE BLOOD COUNT 5.2 x10^3/uL (4.0-11.0)
[2019-04-09 13:32] LABS: ALBUMIN 3.5 g/dL (3.4-5.0); CALCIUM 8.9 mg/dL (8.5-10.1); CREATININE 0.9 mg/dL (0.7-1.3); GFR 82.9; POTASSIUM 3.4 mmol/L (3.5-5.1); TOTAL BILIRUBIN 0.5 mg/dL (0.2-1.0); TOTAL PROTEIN 6.9 g/dL (6.4-8.2); URIC ACID 5.8 mg/dL (3.5-7.2)
--- NOTE | 2019-04-09 15:47 | RAD ---
Left knee 3 views. HISTORY: Painful swollen 3 views the left knee show no fracture or acute osseous abnormality. There is no joint effusion. There is anterior soft tissue swelling. There is vascular calcification. IMPRESSION: 1. No acute osseous abnormality noted at the left knee. 2. Soft tissue swelling. Electronically signed by: Rodrigo Nuñez MD (04/09/2019 3:44 PM) [id number]
[2019-04-09 16:33] VITALS: BP 133/75
[2019-04-09] MEDS: MELOXICAM 15 MG TABLET. PO SCH (17:20)
[2019-04-09] MEDS: MIRTAZAPINE 7.5 MG TABLET. PO SCH (19:48)
[2019-04-09] MEDS: traZODone 50 MG TABLET. PO SCH (19:50)
[2019-04-09] MEDS ORDERED: levETIRAcetam 500 MG TABLET PO ONE (20:30)
[2019-04-09] MEDS: ALPRAZolam 0.5 MG TABLET PO PRN (22:08)
--- NOTE | 2019-04-09 23:13 | PDOC ---
Exam Note: Sebastien Note: Please also refer to the separate dictated note~for this date of service dictated separately.~Patient seen individually. Discussed the patient with Nursing staff reviewed the chart.~Reviewed interim history and current functioning. Reviewed vital signs,~Labs/ Radiology~and current medications noted below. Continue current treatment with the changes noted in the dictated addendum note Assessment: Vital Signs/I&O: Vital Signs Date Time Temp Pulse Resp B/P (MAP) Pulse Ox O2 Delivery O2 Flow Rate FiO2 04/09/19 16:33 97.8 57 16 133/75 (94) 98 04/09/19 06:28 Room Air 04/07/19 16:13 99.0 I & O 0 04/08/19 04/08/19 04/09/19 15:00 23:00 07:00 Intake Total 480 ml 460 ml Balance 480 ml 460 ml Labs: Laboratory Tests Test 04/09/19 13:09 White Blood Count 5.2 x10^3/uL (4.0-11.0) Red Blood Count 3.45 x10^6/uL (4.30-5.70) L Hemoglobin 10.2 g/dL (13.0-17.5) L Hematocrit 31.4 % (39.0-53.0) L Mean Corpuscular Volume 91 fL (79-100) Mean Corpuscular Hemoglobin 30 pg (25-35) Mean Corpuscular Hemoglobin Concent 33 g/dL (31-37) Red Cell Distribution Width 15.1 % (11.5-14.5) H Platelet Count 273 x10^3/uL (140-400) Neutrophils (%) (Auto) 62 % (31-73) Lymphocytes (%) (Auto) 19 % (24-48) L Monocytes (%) (Auto) 18 % (0-9) H Eosinophils (%) (Auto) 1 % (0-3) Basophils (%) (Auto) 1 % (0-3) Neutrophils # (Auto) 3.2 x10^3uL (1.8-7.7) Lymphocytes # (Auto) 1.0 x10^3/uL (1.0-4.8) Monocytes # (Auto) 0.9 x10^3/uL (0.0-1.1) Eosinophils # (Auto) 0.0 x10^3/uL (0.0-0.7) Basophils # (Auto) 0.0 x10^3/uL (0.0-0.2) Erythrocyte Sedimentation Rate 47 (0-15) H Sodium Level 147 mmol/L (136-145) H Potassium Level 3.4 mmol/L (3.5-5.1) L Chloride Level 110 mmol/L (98-107) H Carbon Dioxide Level 30 mmol/L (21-32) Anion Gap 7 (6-14) Blood Urea Nitrogen 26 mg/dL (8-26) Creatinine 0.9 mg/dL (0.7-1.3) Estimated GFR (Cockcroft-Gault) 82.9 BUN/Creatinine Ratio 29 (6-20) H Glucose Level 113 mg/dL (70-99) H Uric Acid 5.8 mg/dL (3.5-7.2) Calcium Level 8.9 mg/dL (8.5-10.1) Total Bilirubin 0.5 mg/dL (0.2-1.0) Aspartate Amino Transferase (AST) 27 U/L (15-37) Alanine Aminotransferase (ALT) 45 U/L (16-63) Alkaline Phosphatase 97 U/L (46-116) C-Reactive Protein 51.5 mg/L (0-3.3) H Total Protein 6.9 g/dL (6.4-8.2) Albumin 3.5 g/dL (3.4-5.0) Albumin/Globulin Ratio 1.0 (1.0-1.7) Current Medications: Meds: Current Medications Medications (Trade) Dose Ordered Sig/Moo Route PRN Reason Start Time Stop Time Status Last Admin Dose Admin Meloxicam (Mobic) 15 mg DAILY PO 04/09/19 16:30 04/09/19 17:20 Levetiracetam (Keppra) 1,000 mg 1X ONCE PO 04/09/19 20:30 04/09/19 20:31 DC 04/09/19 20:00 I have reviewed the current psychotropics carefully including drug interactions. Risk benefit ratio favors no change other than as noted in my dictated progress note. Diagnosis: Problems: (1) Medical clearance for psychiatric admission (2) Anxiety disorder (3) Major neurocognitive disorder (4) Dementia in Alzheimer's disease with delusions (5) Dementia in Alzheimer's disease with depression (6) Dementia, vascular, with delusions (7) Dementia, vascular, with depression (8) Impulse control disorder (9) Alcohol dependency CECILIO RECINOS MD Apr 09, 2019 23:13
[2019-04-10 06:06] VITALS: BP 129/84
[2019-04-10] MEDS: LEVOTHYROXINE 150 MCG TABLET PO SCH (06:11)
[2019-04-10] MEDS: THIAMINE 100 MG TABLET. PO SCH (07:55)
[2019-04-10] MEDS: DIVALPROEX 125 MG CAP.SPRINK PO SCH ×2 (07:55→19:48)
[2019-04-10] MEDS: FAMOTIDINE 20 MG TABLET PO SCH ×2 (07:55→19:48)
[2019-04-10] MEDS: ASPIRIN 81 MG TAB.CHEW PO SCH (07:55)
[2019-04-10] MEDS: ACETAMINOPHEN 325 MG TABLET PO SCH ×2 (07:56→19:47)
[2019-04-10] MEDS: QUEtiapine 25 MG TABLET. PO SCH ×3 (07:56→16:36)
[2019-04-10] MEDS: FOLIC ACID 1 MG TABLET PO SCH (07:56)
[2019-04-10] MEDS: SERTRALINE 50 MG TABLET. PO SCH (07:56)
[2019-04-10] MEDS: MELOXICAM 15 MG TABLET. PO SCH (07:56)
[2019-04-10] MEDS: NICOTINE 7MG PATCH. TD SCH (07:57)
[2019-04-10] MEDS: ALPRAZolam 0.25 MG TABLET PO SCH (08:01)
[2019-04-10 16:28] VITALS: BP 130/77
[2019-04-10] MEDS: MIRTAZAPINE 7.5 MG TABLET. PO SCH (19:47)
[2019-04-10] MEDS: traZODone 50 MG TABLET. PO SCH (19:47)
[2019-04-10] MEDS: levETIRAcetam 500 MG TABLET PO SCH (19:49)
--- NOTE | 2019-04-10 22:32 | PDOC ---
Exam Note: Sebastien Note: Please also refer to the separate dictated note~for this date of service dictated separately.~Patient seen individually. Discussed the patient with Nursing staff reviewed the chart.~Reviewed interim history and current functioning. Reviewed vital signs,~Labs/ Radiology~and current medications noted below. Continue current treatment with the changes noted in the dictated addendum note Assessment: Vital Signs/I&O: Vital Signs Date Time Temp Pulse Resp B/P (MAP) Pulse Ox O2 Delivery O2 Flow Rate FiO2 04/10/19 16:28 97.9 58 20 130/77 (94) 98 04/10/19 06:06 Room Air 04/07/19 16:13 99.0 I & O 0 04/09/19 04/09/19 04/10/19 15:00 23:00 07:00 Intake Total 480 ml 0 ml Balance 480 ml 0 ml Current Medications: Meds: Current Medications Medications (Trade) Dose Ordered Sig/Moo Route PRN Reason Start Time Stop Time Status Last Admin Dose Admin Levetiracetam (Keppra) 500 mg HS PO 04/10/19 21:00 04/12/19 20:59 04/10/19 19:49 I have reviewed the current psychotropics carefully including drug interactions. Risk benefit ratio favors no change other than as noted in my dictated progress note. Diagnosis: Problems: (1) Medical clearance for psychiatric admission (2) Anxiety disorder (3) Major neurocognitive disorder (4) Dementia in Alzheimer's disease with delusions (5) Dementia in Alzheimer's disease with depression (6) Dementia, vascular, with delusions (7) Dementia, vascular, with depression (8) Impulse control disorder CECILIO RECINOS MD Apr 10, 2019 22:32
--- NOTE | 2019-04-10 22:35 | PN ---
DATE: 04/08/2019 PSYCHIATRIC PROGRESS NOTE This late entry 04/08/2019 covers elements not covered in my initial note. SUBJECTIVE: I met with the patient in the evening of 04/08/2019. The patient slept 6-1/2 hours previous night. He was walking in the morning, refused his medications in the morning, said that he was full. He picked up his shirt to show the nursing staff how full he was in his stomach to explain the reason why he was refusing his psychotropics, took them later in Boost. Did receive IM Haldol at 10:30. Anxious, restless, was on the floor at one point. REVIEW OF SYSTEMS: No CV, , pulmonary, eye, ENT system symptoms on review. Reliability poor. MENTAL STATUS EXAM: Oriented to himself. Insight, judgment, recent and remote memory, attention, concentration, fund of knowledge poor, consistent with his diagnosis mentioned in my initial note. PLAN: No change from initial note. We will continue the IM Haldol for now. Consider stopping it in due course. His has been closely involved in his care. Keppra is being tapered since this could have been worsening his agitation and Depakote has been adjusted to reach therapeutic level of 58. CECILIO RECINOS MD DR: EVETTE/abdirahman JOB#: [id number] / [id number]
[2019-04-11] MEDS: LEVOTHYROXINE 150 MCG TABLET PO SCH (04:49)
[2019-04-11 05:46] VITALS: BP 150/85
[2019-04-11] MEDS: ACETAMINOPHEN 325 MG TABLET PO SCH ×2 (07:45→19:30)
[2019-04-11] MEDS: MELOXICAM 15 MG TABLET. PO SCH (07:45)
[2019-04-11] MEDS: ASPIRIN 81 MG TAB.CHEW PO SCH (07:45)
[2019-04-11] MEDS: SERTRALINE 50 MG TABLET. PO SCH (07:46)
[2019-04-11] MEDS: FAMOTIDINE 20 MG TABLET PO SCH ×2 (07:46→19:31)
[2019-04-11] MEDS: THIAMINE 100 MG TABLET. PO SCH (07:46)
[2019-04-11] MEDS: DIVALPROEX 125 MG CAP.SPRINK PO SCH ×2 (07:46→19:30)
[2019-04-11] MEDS: QUEtiapine 25 MG TABLET. PO SCH ×3 (07:46→16:59)
[2019-04-11] MEDS: NICOTINE 7MG PATCH. TD SCH (07:47)
[2019-04-11] MEDS: FOLIC ACID 1 MG TABLET PO SCH (07:47)
[2019-04-11] MEDS: ALPRAZolam 0.25 MG TABLET PO SCH (07:48)
[2019-04-11 16:08] VITALS: BP 118/68
[2019-04-11] MEDS: levETIRAcetam 500 MG TABLET PO SCH (19:31)
[2019-04-11] MEDS: MIRTAZAPINE 7.5 MG TABLET. PO SCH (19:31)
[2019-04-11] MEDS: traZODone 50 MG TABLET. PO SCH (19:31)
--- NOTE | 2019-04-11 22:28 | PN ---
DATE: 04/09/2019 PSYCHIATRIC PROGRESS NOTE This late entry, 04/09, covers elements not covered in my initial note. SUBJECTIVE: I met with the patient in the evening of 04/09. The patient slept 6-1/2 hours previous night. He remains quite confused, complains of problems in his left knee. C-reactive protein and sed rate are elevated. X-ray was negative. We will defer to Dr. Posada. He received his 2 mg IM Haldol on 04/09. While talking to his over the phone, nursing staff heard him say that he feels like "shit." He has been somewhat tired, takes meds crushed in pudding. REVIEW OF SYSTEMS: No CV, , pulmonary, eye, ENT system symptoms on review. Reliability poor. MENTAL STATUS EXAM: Oriented to himself. Insight, judgment, recent and remote memory, attention, concentration, fund of knowledge poor, consistent with his diagnosis mentioned in my initial note. PLAN: No change from initial note. MAN Gladis RECINOS MD DR: EVETTE/abdirahman JOB#: [id number] / [id number]
--- NOTE | 2019-04-11 22:48 | PN ---
DATE: 04/10/2019 PSYCHIATRIC PROGRESS NOTE This late entry, 04/10, covers the elements not covered in my initial note. SUBJECTIVE: I met with the patient in the evening of 04/10. The patient remains confused, intermittently agitated, but on 04/10, had a good day, compliant with his medications even with taking his bandages off. He slept 7 hours previous night. REVIEW OF SYSTEMS: No CV, , pulmonary, eye, ENT system symptoms on review. Reliability poor. MENTAL STATUS EXAM: Oriented to himself. Insight, judgment, recent and remote memory, attention, concentration, fund of knowledge poor, consistent with his diagnosis mentioned in my initial note. PLAN: No change from initial note. MAN Gladis RECINOS MD DR: EVETTE/abdirahman JOB#: [id number] / [id number]
[2019-04-12] MEDS: LEVOTHYROXINE 150 MCG TABLET PO SCH (04:50)
[2019-04-12 05:47] VITALS: BP 124/74
[2019-04-12] MEDS: ASPIRIN 81 MG TAB.CHEW PO SCH (07:43)
[2019-04-12] MEDS: DIVALPROEX 125 MG CAP.SPRINK PO SCH ×3 (07:43→21:00)
[2019-04-12] MEDS: ACETAMINOPHEN 325 MG TABLET PO SCH ×3 (07:43→21:00)
[2019-04-12] MEDS: THIAMINE 100 MG TABLET. PO SCH (07:44)
[2019-04-12] MEDS: FOLIC ACID 1 MG TABLET PO SCH (07:44)
[2019-04-12] MEDS: MELOXICAM 15 MG TABLET. PO SCH (07:44)
[2019-04-12] MEDS: QUEtiapine 25 MG TABLET. PO SCH ×3 (07:44→17:07)
[2019-04-12] MEDS: FAMOTIDINE 20 MG TABLET PO SCH ×3 (07:44→21:00)
[2019-04-12] MEDS: SERTRALINE 50 MG TABLET. PO SCH (07:44)
[2019-04-12] MEDS: NICOTINE 7MG PATCH. TD SCH (07:44)
[2019-04-12] MEDS: ALPRAZolam 0.25 MG TABLET PO SCH (07:49)
--- NOTE | 2019-04-12 08:54 | PDOC ---
Exam Note: Sebastien Note: Late entry for DOS 04/11/2019. Please also refer to the separate dictated note~for this date of service dictated separately.~Patient seen individually. Discussed the patient with Nursing staff reviewed the chart.~Reviewed interim history and current functioning. Reviewed vital signs,~Labs/ Radiology~and current medications noted below. Continue current treatment with the changes noted in the dictated addendum note Assessment: Vital Signs/I&O: Vital Signs Date Time Temp Pulse Resp B/P (MAP) Pulse Ox O2 Delivery O2 Flow Rate FiO2 04/12/19 05:47 97.4 50 18 124/74 (91) 94 Room Air 04/07/19 16:13 99.0 I & O 04/11/19 04/11/19 04/12/19 15:00 23:00 07:00 Intake Total 540 ml 240 ml 120 ml Balance 540 ml 240 ml 120 ml Current Medications: I have reviewed the current psychotropics carefully including drug interactions. Risk benefit ratio favors no change other than as noted in my dictated progress note. Diagnosis: Problems: (1) Medical clearance for psychiatric admission (2) Anxiety disorder (3) Major neurocognitive disorder (4) Dementia in Alzheimer's disease with delusions (5) Dementia in Alzheimer's disease with depression (6) Dementia, vascular, with delusions (7) Dementia, vascular, with depression (8) Impulse control disorder (9) Alcohol dependency CECILIO RECINOS MD Apr 12, 2019 08:54
[2019-04-12] MEDS: ACETAMINOPHEN 325 MG TABLET PO PRN (11:59)
[2019-04-12] MEDS: ALPRAZolam 0.5 MG TABLET PO PRN (11:59)
[2019-04-12] MEDS ORDERED: MAGNESIUM CITRATE 296 ML SOLUTION. PO PRN (13:45)
[2019-04-12 15:48] VITALS: BP 111/74
[2019-04-12] MEDS: traZODone 50 MG TABLET. PO SCH (20:53)
[2019-04-12] MEDS: MIRTAZAPINE 7.5 MG TABLET. PO SCH (20:53)
[2019-04-12] MEDS: POLYETHYLENE GLYCOL 3350 17 GM PACKET. PO SCH (21:00)
[2019-04-12] MEDS: DOCUSATE SODIUM 100 MG CAPSULE PO SCH (21:00)
[2019-04-12] MEDS: hydrOXYzine HCL 25 MG TABLET PO PRN (21:09)
--- NOTE | 2019-04-12 22:27 | PDOC ---
Exam Note: Sebastien Note: Please also refer to the separate dictated note~for this date of service dictated separately.~Patient seen individually. Discussed the patient with Nursing staff reviewed the chart.~Reviewed interim history and current functioning. Reviewed vital signs,~Labs/ Radiology~and current medications noted below. Continue current treatment with the changes noted in the dictated addendum note Assessment: Vital Signs/I&O: Vital Signs Date Time Temp Pulse Resp B/P (MAP) Pulse Ox O2 Delivery O2 Flow Rate FiO2 04/12/19 15:48 97.9 58 16 111/74 (86) 98 04/12/19 05:47 Room Air 04/07/19 16:13 99.0 I & O 0 04/11/19 04/11/19 04/12/19 15:00 23:00 07:00 Intake Total 540 ml 240 ml 120 ml Balance 540 ml 240 ml 120 ml Current Medications: Meds: Current Medications Medications (Trade) Dose Ordered Sig/Moo Route PRN Reason Start Time Stop Time Status Last Admin Dose Admin Magnesium Citrate (Citroma) 296 ml PRN Q72HRS PRN PO CONSTIPATION 04/12/19 13:45 04/12/19 13:51 Quetiapine Fumarate (SEROquel) 25 mg BID@0900,1700 PO 04/12/19 17:00 04/12/19 17:07 I have reviewed the current psychotropics carefully including drug interactions. Risk benefit ratio favors no change other than as noted in my dictated progress note. Diagnosis: Problems: (1) Anxiety disorder (2) Major neurocognitive disorder (3) Dementia in Alzheimer's disease with delusions (4) Dementia in Alzheimer's disease with depression (5) Dementia, vascular, with delusions (6) Dementia, vascular, with depression (7) Impulse control disorder CECILIO RECINOS MD Apr 12, 2019 22:27
--- NOTE | 2019-04-13 01:16 | PN ---
DATE: 04/11/2019 PSYCHIATRIC PROGRESS NOTE This late entry, 04/11/2019, covers elements not covered in my initial note. SUBJECTIVE: I met with the patient in the evening of 04/11/2019. The patient slept 3 hours previous night. In the morning, he was trying to use the walker of another patient, was agitated, received p.r.n., then did better. REVIEW OF SYSTEMS: No CV, , pulmonary, eye, ENT system symptoms on review. Reliability poor. MENTAL STATUS EXAM: Oriented to himself. Insight, judgment, recent and remote memory, attention, concentration, fund of knowledge poor, consistent with his diagnosis mentioned in my initial note. IMPRESSION: Major neurocognitive disorder, Alzheimer, vascular with delusion, depression, behavioral disturbance; anxiety disorder, unspecified; impulse control disorder, unspecified. PLAN: Given his ongoing insomnia, he slept just 3 hours previous night. We will increase bedtime trazodone, continue with the scheduled trazodone 50 mg at bedtime, but we will add may repeat x 1. Maintain Zoloft, Keppra is being tapered. He is on Xanax 0.25 mg daily, which we will consider stopping shortly. Zyprexa is p.r.n. Maintain Depakote Sprinkles, Remeron, Seroquel along with the p.r.n. Atarax. MAN Gladis RECINOS MD DR: EVETTE/abdirahman JOB#: [id number] / [id number]
[2019-04-13] MEDS: LEVOTHYROXINE 150 MCG TABLET PO SCH (05:47)
[2019-04-13 06:31] VITALS: BP 137/67
[2019-04-13] MEDS: NICOTINE 7MG PATCH. TD SCH (07:33)
[2019-04-13] MEDS: POLYETHYLENE GLYCOL 3350 17 GM PACKET. PO SCH ×2 (07:34→19:35)
[2019-04-13] MEDS: ACETAMINOPHEN 325 MG TABLET PO SCH ×2 (07:35→19:36)
[2019-04-13] MEDS: SERTRALINE 50 MG TABLET. PO SCH (07:35)
[2019-04-13] MEDS: QUEtiapine 25 MG TABLET. PO SCH ×3 (07:35→16:24)
[2019-04-13] MEDS: FAMOTIDINE 20 MG TABLET PO SCH ×2 (07:35→19:35)
[2019-04-13] MEDS: FOLIC ACID 1 MG TABLET PO SCH (07:35)
[2019-04-13] MEDS: ASPIRIN 81 MG TAB.CHEW PO SCH (07:35)
[2019-04-13] MEDS: DIVALPROEX 125 MG CAP.SPRINK PO SCH ×2 (07:35→19:35)
[2019-04-13] MEDS: MELOXICAM 15 MG TABLET. PO SCH (07:35)
[2019-04-13] MEDS: DOCUSATE SODIUM 100 MG CAPSULE PO SCH ×2 (07:35→19:35)
[2019-04-13] MEDS: THIAMINE 100 MG TABLET. PO SCH (07:35)
[2019-04-13 15:51] VITALS: BP 124/79
[2019-04-13] MEDS: traZODone 50 MG TABLET. PO SCH (19:35)
[2019-04-13] MEDS: MIRTAZAPINE 7.5 MG TABLET. PO SCH (19:35)
--- NOTE | 2019-04-13 21:58 | PDOC ---
Exam Note: Sebastien Note: Please also refer to the separate dictated note~for this date of service dictated separately.~Patient seen individually. Discussed the patient with Nursing staff reviewed the chart.~Reviewed interim history and current functioning. Reviewed vital signs,~Labs/ Radiology~and current medications noted below. Continue current treatment with the changes noted in the dictated addendum note Assessment: Vital Signs/I&O: Vital Signs Date Time Temp Pulse Resp B/P (MAP) Pulse Ox O2 Delivery O2 Flow Rate FiO2 04/13/19 15:51 97.2 54 16 124/79 (94) 100 04/12/19 05:47 Room Air 04/07/19 16:13 99.0 I & O 04/12/19 04/12/19 04/13/19 15:00 23:00 07:00 Intake Total 480 ml 360 ml 120 ml Balance 480 ml 360 ml 120 ml Current Medications: I have reviewed the current psychotropics carefully including drug interactions. Risk benefit ratio favors no change other than as noted in my dictated progress note. Diagnosis: Problems: (1) Medical clearance for psychiatric admission (2) Anxiety disorder (3) Major neurocognitive disorder (4) Dementia in Alzheimer's disease with delusions (5) Dementia in Alzheimer's disease with depression (6) Dementia, vascular, with delusions (7) Dementia, vascular, with depression (8) Impulse control disorder (9) Degenerative arthritis CECILIO RECINOS MD Apr 13, 2019 21:58
--- NOTE | 2019-04-14 01:30 | PN ---
DATE: 04/12/2019 This late entry of 04/12/2019 covers elements not covered in my initial note. SUBJECTIVE: I met with the patient in the evening of 04/12/2019. The patient slept 7-1/2 hours previous night. Received information that the patient's was life flighted for open heart surgery. The sons have stepped into help care for the patient and may need to make alternate arrangements rather than having the patient return home as the had planned at the time of the patient's discharge. Nevertheless, per nursing and social service information there are some financial restrictions that might prevent this from happening and he may ultimately end up returning home with the sons stepping in more for the care. Keppra has been tapered. Last dose was on 04/12/2019. REVIEW OF SYSTEMS: No CV, , PULMONARY, EYE, ENT system symptoms on review. Reliability poor. MENTAL STATUS EXAM: Oriented to himself. Insight, judgment, recent and remote memory, attention, concentration, fund of knowledge poor, consistent with his diagnosis. IMPRESSION: Major neurocognitive disorder; Alzheimer; vascular with delusion; depression; behavioral disturbance; anxiety disorder, unspecified; impulse control disorder, unspecified. PLAN: Continue current psychotropics. He is currently on Seroquel 12.5 mg b.i.d. and 25 mg at 1300. We will change it to 25 mg at 9 a.m., 1:00 p.m., 5:00 p.m. Keppra will be stopped. He remains on Depakote. Continue trazodone at bedtime, Zoloft. Stop the scheduled Xanax 0.25 mg daily. Continue rest, unchanged for now including Remeron 7.5 mg at bedtime. MAN Gladis RECINOS MD DR: EVETTE/abdirahman JOB#: [id number] / [id number]
[2019-04-14 06:15] VITALS: BP 151/81
[2019-04-14] MEDS: LEVOTHYROXINE 150 MCG TABLET PO SCH (06:22)
[2019-04-14] MEDS: MELOXICAM 15 MG TABLET. PO SCH (08:11)
[2019-04-14] MEDS: FOLIC ACID 1 MG TABLET PO SCH (08:12)
[2019-04-14] MEDS: ASPIRIN 81 MG TAB.CHEW PO SCH (08:12)
[2019-04-14] MEDS: QUEtiapine 25 MG TABLET. PO SCH ×2 (08:12→17:27)
[2019-04-14] MEDS: NICOTINE 7MG PATCH. TD SCH (08:12)
[2019-04-14] MEDS: THIAMINE 100 MG TABLET. PO SCH (08:12)
[2019-04-14] MEDS: SERTRALINE 50 MG TABLET. PO SCH (08:13)
[2019-04-14] MEDS: ACETAMINOPHEN 325 MG TABLET PO SCH ×2 (08:13→19:53)
[2019-04-14] MEDS: DOCUSATE SODIUM 100 MG CAPSULE PO SCH ×2 (08:13→19:51)
[2019-04-14] MEDS: POLYETHYLENE GLYCOL 3350 17 GM PACKET. PO SCH ×2 (08:13→19:53)
[2019-04-14] MEDS: FAMOTIDINE 20 MG TABLET PO SCH ×2 (08:13→19:51)
[2019-04-14] MEDS: DIVALPROEX 125 MG CAP.SPRINK PO SCH ×2 (08:13→19:52)
[2019-04-14] MEDS: QUEtiapine 50 MG TABLET. PO SCH (13:09)
[2019-04-14 15:52] VITALS: BP 132/80
[2019-04-14] MEDS: MIRTAZAPINE 7.5 MG TABLET. PO SCH (19:51)
[2019-04-14] MEDS: traZODone 50 MG TABLET. PO SCH (19:53)
--- NOTE | 2019-04-14 22:12 | PDOC ---
Exam Note: Sebastien Note: Please also refer to the separate dictated note~for this date of service dictated separately.~Patient seen individually. Discussed the patient with Nursing staff reviewed the chart.~Reviewed interim history and current functioning. Reviewed vital signs,~Labs/ Radiology~and current medications noted below. Continue current treatment with the changes noted in the dictated addendum note Assessment: Vital Signs/I&O: Vital Signs Date Time Temp Pulse Resp B/P (MAP) Pulse Ox O2 Delivery O2 Flow Rate FiO2 04/14/19 15:52 98.2 64 18 132/80 (97) 100 Room Air I & O 04/13/19 04/13/19 04/14/19 14:59 22:59 06:59 Intake Total 360 ml 120 ml Balance 360 ml 120 ml Current Medications: Meds: Current Medications Medications (Trade) Dose Ordered Sig/Moo Route PRN Reason Start Time Stop Time Status Last Admin Dose Admin Quetiapine Fumarate (SEROquel) 50 mg DAILY@1300 PO 04/14/19 13:00 04/14/19 13:09 I have reviewed the current psychotropics carefully including drug interactions. Risk benefit ratio favors no change other than as noted in my dictated progress note. Diagnosis: Problems: (1) Medical clearance for psychiatric admission (2) Anxiety disorder (3) Major neurocognitive disorder (4) Dementia in Alzheimer's disease with delusions (5) Dementia in Alzheimer's disease with depression (6) Dementia, vascular, with delusions (7) Dementia, vascular, with depression (8) Impulse control disorder (9) Degenerative arthritis CECILIO RECINOS MD Apr 14, 2019 22:12
[2019-04-15] MEDS: traZODone 50 MG TABLET. PO SCH ×2 (00:09→19:57)
[2019-04-15 05:28] VITALS: BP 123/70
[2019-04-15] MEDS: LEVOTHYROXINE 150 MCG TABLET PO SCH (06:09)
[2019-04-15] MEDS: DOCUSATE SODIUM 100 MG CAPSULE PO SCH ×2 (08:14→19:57)
[2019-04-15] MEDS: QUEtiapine 25 MG TABLET. PO SCH ×2 (08:14→17:10)
[2019-04-15] MEDS: DIVALPROEX 125 MG CAP.SPRINK PO SCH ×2 (08:15→19:57)
[2019-04-15] MEDS: POLYETHYLENE GLYCOL 3350 17 GM PACKET. PO SCH ×2 (08:15→19:56)
[2019-04-15] MEDS: NICOTINE 7MG PATCH. TD SCH (08:15)
[2019-04-15] MEDS: ASPIRIN 81 MG TAB.CHEW PO SCH (08:16)
[2019-04-15] MEDS: THIAMINE 100 MG TABLET. PO SCH (08:16)
[2019-04-15] MEDS: ACETAMINOPHEN 325 MG TABLET PO SCH ×2 (08:16→19:57)
[2019-04-15] MEDS: FAMOTIDINE 20 MG TABLET PO SCH ×2 (08:16→19:57)
[2019-04-15] MEDS: SERTRALINE 50 MG TABLET. PO SCH (08:16)
[2019-04-15] MEDS: FOLIC ACID 1 MG TABLET PO SCH (08:17)
[2019-04-15] MEDS: MELOXICAM 15 MG TABLET. PO SCH (08:17)
[2019-04-15] MEDS: QUEtiapine 50 MG TABLET. PO SCH (13:07)
[2019-04-15 15:35] VITALS: BP 163/82
[2019-04-15] MEDS: MIRTAZAPINE 15 MG TABLET PO SCH (20:00)
--- NOTE | 2019-04-15 22:15 | PDOC ---
Exam Note: Sebastien Note: Please also refer to the separate dictated note~for this date of service dictated separately.~Patient seen individually. Discussed the patient with Nursing staff reviewed the chart.~Reviewed interim history and current functioning. Reviewed vital signs,~Labs/ Radiology~and current medications noted below. Continue current treatment with the changes noted in the dictated addendum note Assessment: Vital Signs/I&O: Vital Signs Date Time Temp Pulse Resp B/P (MAP) Pulse Ox O2 Delivery O2 Flow Rate FiO2 04/15/19 15:35 97.3 62 16 163/82 (109) 99 04/15/19 05:28 Room Air I & O 04/14/19 04/14/19 04/15/19 15:00 23:00 07:00 Intake Total 720 ml 0 ml 120 ml Balance 720 ml 0 ml 120 ml Current Medications: Meds: Current Medications Medications (Trade) Dose Ordered Sig/Moo Route PRN Reason Start Time Stop Time Status Last Admin Dose Admin Mirtazapine (Remeron) 15 mg QHS PO 04/15/19 21:00 04/15/19 20:00 I have reviewed the current psychotropics carefully including drug interactions. Risk benefit ratio favors no change other than as noted in my dictated progress note. Diagnosis: Problems: (1) Anxiety disorder (2) Major neurocognitive disorder (3) Dementia in Alzheimer's disease with delusions (4) Dementia in Alzheimer's disease with depression (5) Dementia, vascular, with delusions (6) Dementia, vascular, with depression (7) Impulse control disorder CECILIO RECINOS MD Apr 15, 2019 22:15
--- NOTE | 2019-04-15 22:51 | PN ---
DATE: 04/13/2019 PSYCHIATRIC PROGRESS NOTE This is a late entry 04/13/2019, covers the elements not covered in my initial note. SUBJECTIVE: I met with the patient in the evening of 04/13/2019. The patient slept 5-1/4 hours previous night. Previous evening, he had to be given his medications syringed, but during the day on 04/13/2019, he was better with female staff members. He sat through groups, but otherwise quite confused. REVIEW OF SYSTEMS: No CV, , pulmonary, eye, ENT system symptoms on review. Reliability is poor. MENTAL STATUS EXAM: Oriented to himself. Insight, judgment, recent and remote memory, attention, concentration, fund of knowledge poor, consistent with his diagnosis mentioned in my initial note. PLAN: No change from initial note. MAN Gladis RECINOS MD DR: EVETTE/abdirahman JOB#: [id number] / [id number]
--- NOTE | 2019-04-15 23:07 | PN ---
DATE: 04/14/2019 PSYCHIATRIC PROGRESS NOTE This is a late entry 04/14/2019, covers the elements not covered in my initial note. SUBJECTIVE: I met with the patient in the evening of 04/14/2019 and staffed at a treatment team meeting with the entire team in the morning. Reviewed his history, diagnosis, progress. His is currently hospitalized for cardiac problems and he may need placement as the son's may be unable to care for him. REVIEW OF SYSTEMS: No CV, , pulmonary, eye, ENT system symptoms on review. Slept 5-1/2 hours. Reliability is poor. MENTAL STATUS EXAM: Oriented to himself. Insight, judgment, recent and remote memory, attention, concentration, fund of knowledge poor, consistent with his diagnosis mentioned in my initial note. PLAN: No change from initial note. MAN Gladis RECINOS MD DR: EVETTE/abdirahman JOB#: [id number] / [id number]
[2019-04-16] MEDS: LEVOTHYROXINE 150 MCG TABLET PO SCH (04:48)
[2019-04-16 05:48] VITALS: BP 172/82
[2019-04-16 07:39] LABS: BASO % 1 % (0-3); EOS # 0.1 x10^3/uL (0.0-0.7); EOS % 4 % (0-3); HEMATOCRIT 27.9 % (39.0-53.0); HEMOGLOBIN 9.3 g/dL (13.0-17.5); LYMPH # 0.9 x10^3/uL (1.0-4.8); LYMPH % 28 % (24-48); MEAN CORPUSCULAR HEMOGLOBIN 30 pg (25-35); MEAN CORPUSCULAR HGB CONC 33 g/dL (31-37); MEAN CORPUSCULAR VOLUME 91 fL (79-100); MONO # 0.4 x10^3/uL (0.0-1.1); MONO % 14 % (0-9); NEUT # 1.7 x10^3uL (1.8-7.7); NEUT % 53 % (31-73); PLATELET COUNT 282 x10^3/uL (140-400); RED BLOOD COUNT 3.07 x10^6/uL (4.30-5.70); RED CELL DISTRIBUTION WIDTH 14.8 % (11.5-14.5); WHITE BLOOD COUNT 3.3 x10^3/uL (4.0-11.0)
[2019-04-16 07:52] LABS: CALCIUM 8.3 mg/dL (8.5-10.1); CREATININE 0.9 mg/dL (0.7-1.3); GFR 82.9; TOTAL BILIRUBIN 0.4 mg/dL (0.2-1.0); TOTAL PROTEIN 6.1 g/dL (6.4-8.2)
[2019-04-16] MEDS: POLYETHYLENE GLYCOL 3350 17 GM PACKET. PO SCH ×2 (08:06→19:24)
[2019-04-16] MEDS: DOCUSATE SODIUM 100 MG CAPSULE PO SCH ×2 (08:06→19:24)
[2019-04-16] MEDS: NICOTINE 7MG PATCH. TD SCH (08:06)
[2019-04-16] MEDS: SERTRALINE 50 MG TABLET. PO SCH (08:07)
[2019-04-16] MEDS: FAMOTIDINE 20 MG TABLET PO SCH ×2 (08:07→19:24)
[2019-04-16] MEDS: DIVALPROEX 125 MG CAP.SPRINK PO SCH ×2 (08:07→19:25)
[2019-04-16] MEDS: MELOXICAM 15 MG TABLET. PO SCH (08:07)
[2019-04-16] MEDS: FOLIC ACID 1 MG TABLET PO SCH (08:07)
[2019-04-16] MEDS: THIAMINE 100 MG TABLET. PO SCH (08:07)
[2019-04-16] MEDS: ACETAMINOPHEN 325 MG TABLET PO SCH ×2 (08:07→19:24)
[2019-04-16] MEDS: QUEtiapine 25 MG TABLET. PO SCH ×2 (08:08→17:20)
[2019-04-16] MEDS: ASPIRIN 81 MG TAB.CHEW PO SCH (08:08)
[2019-04-16] MEDS: QUEtiapine 50 MG TABLET. PO SCH (12:50)
[2019-04-16 15:53] VITALS: BP 104/71
[2019-04-16] MEDS: traZODone 50 MG TABLET. PO SCH (19:24)
[2019-04-16] MEDS: MIRTAZAPINE 15 MG TABLET PO SCH (19:26)
--- NOTE | 2019-04-16 22:05 | PDOC ---
Exam Note: Sebastien Note: Please also refer to the separate dictated note~for this date of service dictated separately.~Patient seen individually. Discussed the patient with Nursing staff reviewed the chart.~Reviewed interim history and current functioning. Reviewed vital signs,~Labs/ Radiology~and current medications noted below. Continue current treatment with the changes noted in the dictated addendum note Assessment: Vital Signs/I&O: Vital Signs Date Time Temp Pulse Resp B/P (MAP) Pulse Ox O2 Delivery O2 Flow Rate FiO2 04/16/19 15:53 97.4 55 20 104/71 (82) 97 04/15/19 05:28 Room Air I & O 04/15/19 04/15/19 04/16/19 15:00 23:00 07:00 Intake Total 600 ml 240 ml 120 ml Balance 600 ml 240 ml 120 ml Labs: Laboratory Tests Test 04/16/19 07:07 White Blood Count 3.3 x10^3/uL (4.0-11.0) L Red Blood Count 3.07 x10^6/uL (4.30-5.70) L Hemoglobin 9.3 g/dL (13.0-17.5) L Hematocrit 27.9 % (39.0-53.0) L Mean Corpuscular Volume 91 fL (79-100) Mean Corpuscular Hemoglobin 30 pg (25-35) Mean Corpuscular Hemoglobin Concent 33 g/dL (31-37) Red Cell Distribution Width 14.8 % (11.5-14.5) H Platelet Count 282 x10^3/uL (140-400) Neutrophils (%) (Auto) 53 % (31-73) Lymphocytes (%) (Auto) 28 % (24-48) Monocytes (%) (Auto) 14 % (0-9) H Eosinophils (%) (Auto) 4 % (0-3) H Basophils (%) (Auto) 1 % (0-3) Neutrophils # (Auto) 1.7 x10^3uL (1.8-7.7) L Lymphocytes # (Auto) 0.9 x10^3/uL (1.0-4.8) L Monocytes # (Auto) 0.4 x10^3/uL (0.0-1.1) Eosinophils # (Auto) 0.1 x10^3/uL (0.0-0.7) Basophils # (Auto) 0.0 x10^3/uL (0.0-0.2) Sodium Level 148 mmol/L (136-145) H Potassium Level 4.0 mmol/L (3.5-5.1) Chloride Level 111 mmol/L (98-107) H Carbon Dioxide Level 32 mmol/L (21-32) Anion Gap 5 (6-14) L Blood Urea Nitrogen 34 mg/dL (8-26) H Creatinine 0.9 mg/dL (0.7-1.3) Estimated GFR (Cockcroft-Gault) 82.9 BUN/Creatinine Ratio 38 (6-20) H Glucose Level 99 mg/dL (70-99) Calcium Level 8.3 mg/dL (8.5-10.1) L Total Bilirubin 0.4 mg/dL (0.2-1.0) Aspartate Amino Transferase (AST) 17 U/L (15-37) Alanine Aminotransferase (ALT) 30 U/L (16-63) Alkaline Phosphatase 83 U/L (46-116) Total Protein 6.1 g/dL (6.4-8.2) L Albumin 3.0 g/dL (3.4-5.0) L Albumin/Globulin Ratio 1.0 (1.0-1.7) Current Medications: I have reviewed the current psychotropics carefully including drug interactions. Risk benefit ratio favors no change other than as noted in my dictated progress note. Diagnosis: Problems: (1) Anxiety disorder (2) Major neurocognitive disorder (3) Dementia in Alzheimer's disease with delusions (4) Dementia in Alzheimer's disease with depression (5) Dementia, vascular, with delusions (6) Dementia, vascular, with depression (7) Impulse control disorder CECILIO RECINOS MD Apr 16, 2019 22:05
[2019-04-17 05:00] VITALS: BP 153/82
[2019-04-17] MEDS: LEVOTHYROXINE 150 MCG TABLET PO SCH (05:31)
[2019-04-17] MEDS: POLYETHYLENE GLYCOL 3350 17 GM PACKET. PO SCH ×2 (07:58→19:33)
[2019-04-17] MEDS: NICOTINE 7MG PATCH. TD SCH (07:58)
[2019-04-17] MEDS: THIAMINE 100 MG TABLET. PO SCH (07:59)
[2019-04-17] MEDS: DOCUSATE SODIUM 100 MG CAPSULE PO SCH ×2 (07:59→19:34)
[2019-04-17] MEDS: FAMOTIDINE 20 MG TABLET PO SCH ×2 (07:59→19:34)
[2019-04-17] MEDS: ACETAMINOPHEN 325 MG TABLET PO SCH ×2 (07:59→19:34)
[2019-04-17] MEDS: SERTRALINE 50 MG TABLET. PO SCH (07:59)
[2019-04-17] MEDS: MELOXICAM 15 MG TABLET. PO SCH (07:59)
[2019-04-17] MEDS: QUEtiapine 25 MG TABLET. PO SCH ×2 (08:00→16:21)
[2019-04-17] MEDS: ASPIRIN 81 MG TAB.CHEW PO SCH (08:00)
[2019-04-17] MEDS: DIVALPROEX 125 MG CAP.SPRINK PO SCH ×2 (08:00→19:34)
[2019-04-17] MEDS: FOLIC ACID 1 MG TABLET PO SCH (08:00)
[2019-04-17] MEDS: QUEtiapine 50 MG TABLET. PO SCH (12:08)
[2019-04-17 16:09] VITALS: BP 106/71
[2019-04-17] MEDS: traZODone 50 MG TABLET. PO SCH (19:34)
[2019-04-17] MEDS: MIRTAZAPINE 15 MG TABLET PO SCH (19:34)
--- NOTE | 2019-04-17 21:08 | PDOC ---
Exam Note: Sebastien Note: Please also refer to the separate dictated note~for this date of service dictated separately.~Patient seen individually. Discussed the patient with Nursing staff reviewed the chart.~Reviewed interim history and current functioning. Reviewed vital signs,~Labs/ Radiology~and current medications noted below. Continue current treatment with the changes noted in the dictated addendum note Assessment: Vital Signs/I&O: Vital Signs Date Time Temp Pulse Resp B/P (MAP) Pulse Ox O2 Delivery O2 Flow Rate FiO2 04/17/19 16:09 98.1 59 18 106/71 (83) 97 Room Air I & O 04/16/19 04/16/19 04/17/19 14:59 22:59 06:59 Intake Total 600 ml 240 ml 240 ml Balance 600 ml 240 ml 240 ml Current Medications: I have reviewed the current psychotropics carefully including drug interactions. Risk benefit ratio favors no change other than as noted in my dictated progress note. Diagnosis: Problems: (1) Anxiety disorder (2) Major neurocognitive disorder (3) Dementia in Alzheimer's disease with delusions (4) Dementia in Alzheimer's disease with depression (5) Dementia, vascular, with delusions (6) Dementia, vascular, with depression (7) Impulse control disorder CECILIO RECINOS MD Apr 17, 2019 21:08
--- NOTE | 2019-04-17 22:41 | PN ---
DATE: 04/16/2019 PSYCHIATRIC PROGRESS NOTE This late entry 04/16/2019 covers elements not covered in my initial note. SUBJECTIVE: I met with the patient evening of 04/16/2019. The patient slept 5-3/4 hours previous night. He has had a better day, remains confused, took three-quarters of his a.m. medications, does better in one-on-one status with staff. REVIEW OF SYSTEMS: No CV, , pulmonary, eye, ENT system symptoms on review. Reliability poor. MENTAL STATUS EXAM: Oriented to himself. Insight, judgment, recent and remote memory, attention, concentration, fund of knowledge poor, consistent with his diagnosis mentioned in my initial note. PLAN: No change from initial note. MAN Gladis RECINOS MD DR: EVETTE/abdirahman JOB#: [id number] / [id number]
--- NOTE | 2019-04-17 22:41 | PN ---
DATE: 04/15/2019 PSYCHIATRIC PROGRESS NOTE. This late entry of 04/15/2019 covers the elements not covered in my initial note. SUBJECTIVE: I met with the patient in the evening of 04/15/2019. He slept just quarter hour previous night. He has been wandering, spends some time in the day room; anxious, labile, confused, upsets easily then does better. REVIEW OF SYSTEMS: No CV, , pulmonary, eye, ENT system symptoms on review. Reliability poor. MENTAL STATUS EXAM: Oriented to himself. Insight, judgment, recent and remote memory, attention, concentration, fund of knowledge poor, consistent with his diagnosis mentioned in my initial note. PLAN: No change from initial note. MAN Gladis RECINOS MD DR: EVETTE/abdirahman JOB#: [id number] / [id number]
[2019-04-18 05:00] VITALS: BP 132/83
[2019-04-18] MEDS: LEVOTHYROXINE 150 MCG TABLET PO SCH (05:11)
[2019-04-18] MEDS: THIAMINE 100 MG TABLET. PO SCH (10:10)
[2019-04-18] MEDS: SERTRALINE 50 MG TABLET. PO SCH (10:10)
[2019-04-18] MEDS: QUEtiapine 25 MG TABLET. PO SCH ×2 (10:10→17:19)
[2019-04-18] MEDS: FAMOTIDINE 20 MG TABLET PO SCH ×2 (10:10→20:26)
[2019-04-18] MEDS: DOCUSATE SODIUM 100 MG CAPSULE PO SCH ×2 (10:10→20:28)
[2019-04-18] MEDS: ACETAMINOPHEN 325 MG TABLET PO SCH ×2 (10:10→20:27)
[2019-04-18] MEDS: POLYETHYLENE GLYCOL 3350 17 GM PACKET. PO SCH ×2 (10:10→20:30)
[2019-04-18] MEDS: DIVALPROEX 125 MG CAP.SPRINK PO SCH ×2 (10:10→20:28)
[2019-04-18] MEDS: FOLIC ACID 1 MG TABLET PO SCH (10:10)
[2019-04-18] MEDS: MELOXICAM 15 MG TABLET. PO SCH (10:10)
[2019-04-18] MEDS: ASPIRIN 81 MG TAB.CHEW PO SCH (10:10)
[2019-04-18] MEDS: NICOTINE 7MG PATCH. TD SCH (12:09)
[2019-04-18] MEDS: QUEtiapine 50 MG TABLET. PO SCH (13:35)
[2019-04-18 15:54] VITALS: BP 118/78
[2019-04-18] MEDS: traZODone 50 MG TABLET. PO SCH (20:26)
[2019-04-18] MEDS: MIRTAZAPINE 15 MG TABLET PO SCH (20:26)
--- NOTE | 2019-04-18 22:29 | PDOC ---
Exam Note: Sebastien Note: Please also refer to the separate dictated note~for this date of service dictated separately.~Patient seen individually. Discussed the patient with Nursing staff reviewed the chart.~Reviewed interim history and current functioning. Reviewed vital signs,~Labs/ Radiology~and current medications noted below. Continue current treatment with the changes noted in the dictated addendum note Assessment: Vital Signs/I&O: Vital Signs Date Time Temp Pulse Resp B/P (MAP) Pulse Ox O2 Delivery O2 Flow Rate FiO2 04/18/19 15:54 97.2 54 20 118/78 (91) 99 04/18/19 05:00 Room Air I & O 04/17/19 04/17/19 04/18/19 14:59 22:59 06:59 Intake Total 480 ml 240 ml 120 ml Balance 480 ml 240 ml 120 ml Current Medications: I have reviewed the current psychotropics carefully including drug interactions. Risk benefit ratio favors no change other than as noted in my dictated progress note. Diagnosis: Problems: (1) Medical clearance for psychiatric admission (2) Anxiety disorder (3) Major neurocognitive disorder (4) Dementia in Alzheimer's disease with delusions (5) Dementia in Alzheimer's disease with depression (6) Dementia, vascular, with delusions (7) Dementia, vascular, with depression (8) Impulse control disorder (9) Hx of seizure disorder (10) Alzheimer's dementia with behavioral disturbance CECILIO RECINOS MD Apr 18, 2019 22:29
--- NOTE | 2019-04-18 23:37 | PN ---
DATE: 04/17/2019 PROGRESS NOTE This late entry 04/17/2019 covers elements not covered in my initial note. SUBJECTIVE: I met with the patient evening of 04/17/2019. The patient slept 7 hours previous night. He remains confused and better refuses medications, but if there, left close to him. He ultimately did take it himself. He is better when there is less sensory stimuli around him. REVIEW OF SYSTEMS: No CV, , pulmonary, eye, ENT system symptoms on review. Reliability poor. MENTAL STATUS EXAM: Oriented to himself. Insight, judgment, recent and remote memory, attention, concentration, fund of knowledge poor, consistent with his diagnosis mentioned in my initial note. IMPRESSION: Major neurocognitive disorder, Alzheimer, vascular with delusion, depression, behavioral disturbance; anxiety disorder, unspecified; impulse control disorder, unspecified. Rest unchanged. PLAN: Continue current psychotropics. Adjust further as clinically indicated. Social service staff is coordinating transition plans with family. CECILIO RECINOS MD DR: EVETTE/abdirahman JOB#: [id number] / [id number]
[2019-04-19] MEDS: traZODone 50 MG TABLET. PO PRN ×2 (00:23→23:19)
[2019-04-19] MEDS: LEVOTHYROXINE 150 MCG TABLET PO SCH (05:31)
[2019-04-19 06:22] VITALS: BP 119/69
[2019-04-19] MEDS: DOCUSATE SODIUM 100 MG CAPSULE PO SCH ×2 (07:57→20:24)
[2019-04-19] MEDS: THIAMINE 100 MG TABLET. PO SCH (07:58)
[2019-04-19] MEDS: FOLIC ACID 1 MG TABLET PO SCH (07:58)
[2019-04-19] MEDS: DIVALPROEX 125 MG CAP.SPRINK PO SCH ×2 (07:58→20:23)
[2019-04-19] MEDS: FAMOTIDINE 20 MG TABLET PO SCH ×2 (07:58→20:24)
[2019-04-19] MEDS: ACETAMINOPHEN 325 MG TABLET PO SCH ×2 (07:58→20:23)
[2019-04-19] MEDS: ASPIRIN 81 MG TAB.CHEW PO SCH (07:59)
[2019-04-19] MEDS: POLYETHYLENE GLYCOL 3350 17 GM PACKET. PO SCH ×2 (07:59→20:25)
[2019-04-19] MEDS: QUEtiapine 25 MG TABLET. PO SCH ×4 (07:59→20:25)
[2019-04-19] MEDS: NICOTINE 7MG PATCH. TD SCH (07:59)
[2019-04-19] MEDS: SERTRALINE 50 MG TABLET. PO SCH (07:59)
[2019-04-19] MEDS: MELOXICAM 15 MG TABLET. PO SCH (07:59)
[2019-04-19] MEDS: QUEtiapine 50 MG TABLET. PO SCH (13:00)
[2019-04-19 16:14] VITALS: BP 131/70
[2019-04-19] MEDS: MIRTAZAPINE 15 MG TABLET PO SCH (20:23)
[2019-04-19] MEDS: traZODone 50 MG TABLET. PO SCH (20:24)
--- NOTE | 2019-04-19 21:40 | PN ---
DATE: 04/18/2019 PROGRESS NOTE This late entry 04/18/2019 covers elements not covered in my initial note. SUBJECTIVE: I met with the patient evening of 04/18/2019. The patient slept 7-1/4 hours previous night. He remains confused, but little more coherent, at times, resistive to medications at times. REVIEW OF SYSTEMS: No CV, , pulmonary, eye, ENT system symptoms on review. Reliability poor. MENTAL STATUS EXAM: Oriented to himself. Insight, judgment, recent and remote memory, attention, concentration, fund of knowledge poor, consistent with his diagnosis mentioned in my initial note. IMPRESSION: Major neurocognitive disorder, Alzheimer, vascular with delusion, depression, behavioral disturbance; anxiety disorder, unspecified; impulse control disorder, unspecified. Rest unchanged. PLAN: No change from initial note. MAN Gladis RECINOS MD DR: EVETTE/abdirahman JOB#: [id number] / [id number]
--- NOTE | 2019-04-19 21:59 | PDOC ---
Exam Note: Sebastien Note: Please also refer to the separate dictated note~for this date of service dictated separately.~Patient seen individually. Discussed the patient with Nursing staff reviewed the chart.~Reviewed interim history and current functioning. Reviewed vital signs,~Labs/ Radiology~and current medications noted below. Continue current treatment with the changes noted in the dictated addendum note Assessment: Vital Signs/I&O: Vital Signs Date Time Temp Pulse Resp B/P (MAP) Pulse Ox O2 Delivery O2 Flow Rate FiO2 04/19/19 16:14 98.6 71 18 131/70 (90) 100 04/19/19 06:22 Room Air I & O 04/18/19 04/18/19 04/19/19 15:00 23:00 07:00 Intake Total 480 ml 120 ml Balance 480 ml 120 ml Current Medications: Meds: Current Medications Medications (Trade) Dose Ordered Sig/Moo Route PRN Reason Start Time Stop Time Status Last Admin Dose Admin Quetiapine Fumarate (SEROquel) 25 mg 0900,1700,2100 PO 04/19/19 17:00 04/19/19 20:25 I have reviewed the current psychotropics carefully including drug interactions. Risk benefit ratio favors no change other than as noted in my dictated progress note. Diagnosis: Problems: (1) Medical clearance for psychiatric admission (2) Anxiety disorder (3) Major neurocognitive disorder (4) Dementia in Alzheimer's disease with delusions (5) Dementia in Alzheimer's disease with depression (6) Dementia, vascular, with delusions (7) Dementia, vascular, with depression (8) Impulse control disorder (9) Alzheimer's dementia with behavioral disturbance CECILIO RECINOS MD Apr 19, 2019 21:59
[2019-04-20 05:55] VITALS: BP 154/87
[2019-04-20] MEDS: LEVOTHYROXINE 150 MCG TABLET PO SCH (06:45)
[2019-04-20] MEDS: THIAMINE 100 MG TABLET. PO SCH (07:59)
[2019-04-20] MEDS: DOCUSATE SODIUM 100 MG CAPSULE PO SCH ×2 (07:59→20:26)
[2019-04-20] MEDS: DIVALPROEX 125 MG CAP.SPRINK PO SCH ×2 (07:59→20:25)
[2019-04-20] MEDS: ACETAMINOPHEN 325 MG TABLET PO SCH ×2 (07:59→20:26)
[2019-04-20] MEDS: QUEtiapine 25 MG TABLET. PO SCH ×3 (08:00→20:26)
[2019-04-20] MEDS: POLYETHYLENE GLYCOL 3350 17 GM PACKET. PO SCH ×2 (08:00→20:26)
[2019-04-20] MEDS: FAMOTIDINE 20 MG TABLET PO SCH ×2 (08:00→20:26)
[2019-04-20] MEDS: SERTRALINE 50 MG TABLET. PO SCH (08:00)
[2019-04-20] MEDS: ASPIRIN 81 MG TAB.CHEW PO SCH (08:00)
[2019-04-20] MEDS: FOLIC ACID 1 MG TABLET PO SCH (08:00)
[2019-04-20] MEDS: MELOXICAM 15 MG TABLET. PO SCH (08:00)
[2019-04-20] MEDS: QUEtiapine 50 MG TABLET. PO SCH (13:28)
[2019-04-20 15:57] VITALS: BP 122/76
[2019-04-20] MEDS: traZODone 50 MG TABLET. PO SCH (20:26)
[2019-04-20] MEDS: MIRTAZAPINE 15 MG TABLET PO SCH (20:26)
--- NOTE | 2019-04-20 21:33 | PDOC ---
Exam Note: Sebastien Note: Please also refer to the separate dictated note~for this date of service dictated separately.~Patient seen individually. Discussed the patient with Nursing staff reviewed the chart.~Reviewed interim history and current functioning. Reviewed vital signs,~Labs/ Radiology~and current medications noted below. Continue current treatment with the changes noted in the dictated addendum note Assessment: Vital Signs/I&O: Vital Signs Date Time Temp Pulse Resp B/P (MAP) Pulse Ox O2 Delivery O2 Flow Rate FiO2 04/20/19 15:57 97.9 62 20 122/76 (91) 96 04/19/19 06:22 Room Air I & O 04/19/19 04/19/19 04/20/19 15:00 23:00 07:00 Intake Total 1080 ml 240 ml Balance 1080 ml 240 ml Current Medications: I have reviewed the current psychotropics carefully including drug interactions. Risk benefit ratio favors no change other than as noted in my dictated progress note. Diagnosis: Problems: (1) Anxiety disorder (2) Major neurocognitive disorder (3) Dementia in Alzheimer's disease with delusions (4) Dementia in Alzheimer's disease with depression (5) Dementia, vascular, with delusions (6) Dementia, vascular, with depression (7) Impulse control disorder (8) Alzheimer's dementia with behavioral disturbance CECILIO RECINOS MD Apr 20, 2019 21:33
--- NOTE | 2019-04-20 23:14 | PN ---
DATE: 04/19/2019 This late entry 04/19/2019 covers the elements not covered in my initial note. SUBJECTIVE: I met with the patient in the evening of 04/19/2019. The patient slept 3-3/4 hours previous night. He was yelling at night and tank car reconditioner, agitated, received Zyprexa 10 a.m. p.r.n. along with his rest of his medications. During the day later on 04/19/2019 he was less agitated. REVIEW OF SYSTEMS: No CV, , pulmonary, eye, ENT system symptoms on review. Reliability poor. MENTAL STATUS EXAMINATION: Oriented to himself. Insight, judgment, recent and remote memory, attention, concentration, fund of knowledge poor, consistent with his diagnosis. IMPRESSION: Major neurocognitive disorder, Alzheimer vascular with delusions, depression, behavioral disturbances, anxiety disorder unspecified, impulse control disorder unspecified. PLAN: I have received a message from, Kellie, administrator social welfare that the patient has been accepted at a [facility], but they are unable to take until his agitation is better than now. We will go ahead and add Seroquel 25 mg p.o. at bedtime. Continue 25 b.i.d. and 50 mg at 1300 hours. Maintain Zoloft, trazodone, Zyprexa p.r.n., Depakote Sprinkles, valproic acid level is therapeutic at 58. Adjust further as clinically indicated. CECILIO RECINOS MD DR: EVETTE/abdirahman JOB#: [id number] / [id number]
[2019-04-21] MEDS: LEVOTHYROXINE 150 MCG TABLET PO SCH (05:46)
[2019-04-21 05:51] VITALS: BP 137/84
[2019-04-21] MEDS: SERTRALINE 50 MG TABLET. PO SCH (07:54)
[2019-04-21] MEDS: THIAMINE 100 MG TABLET. PO SCH (07:54)
[2019-04-21] MEDS: DIVALPROEX 125 MG CAP.SPRINK PO SCH ×2 (07:54→21:19)
[2019-04-21] MEDS: ASPIRIN 81 MG TAB.CHEW PO SCH (07:55)
[2019-04-21] MEDS: DOCUSATE SODIUM 100 MG CAPSULE PO SCH ×2 (07:55→21:18)
[2019-04-21] MEDS: POLYETHYLENE GLYCOL 3350 17 GM PACKET. PO SCH ×2 (07:55→21:00)
[2019-04-21] MEDS: MELOXICAM 15 MG TABLET. PO SCH (07:55)
[2019-04-21] MEDS: FOLIC ACID 1 MG TABLET PO SCH (07:55)
[2019-04-21] MEDS: QUEtiapine 25 MG TABLET. PO SCH ×3 (07:55→21:19)
[2019-04-21] MEDS: ACETAMINOPHEN 325 MG TABLET PO SCH ×2 (07:55→21:20)
[2019-04-21] MEDS: FAMOTIDINE 20 MG TABLET PO SCH ×2 (07:56→21:19)
[2019-04-21] MEDS: QUEtiapine 50 MG TABLET. PO SCH (12:33)
[2019-04-21 16:36] VITALS: BP 116/72
[2019-04-21] MEDS: MIRTAZAPINE 15 MG TABLET PO SCH (21:19)
[2019-04-21] MEDS: traZODone 50 MG TABLET. PO SCH (21:19)
--- NOTE | 2019-04-21 21:40 | PDOC ---
Exam Note: Sebastien Note: Please also refer to the separate dictated note~for this date of service dictated separately.~Patient seen individually. Discussed the patient with Nursing staff reviewed the chart.~Reviewed interim history and current functioning. Reviewed vital signs,~Labs/ Radiology~and current medications noted below. Continue current treatment with the changes noted in the dictated addendum note Assessment: Vital Signs/I&O: Vital Signs Date Time Temp Pulse Resp B/P (MAP) Pulse Ox O2 Delivery O2 Flow Rate FiO2 04/21/19 16:36 97.4 53 18 116/72 (87) 97 Room Air I & O 04/20/19 04/20/19 04/21/19 15:00 23:00 07:00 Intake Total 840 ml 240 ml 240 ml Balance 840 ml 240 ml 240 ml Current Medications: I have reviewed the current psychotropics carefully including drug interactions. Risk benefit ratio favors no change other than as noted in my dictated progress note. Diagnosis: Problems: (1) Medical clearance for psychiatric admission (2) Anxiety disorder (3) Major neurocognitive disorder (4) Dementia in Alzheimer's disease with delusions (5) Dementia in Alzheimer's disease with depression (6) Dementia, vascular, with delusions (7) Dementia, vascular, with depression (8) Impulse control disorder (9) Alzheimer's dementia with behavioral disturbance CECILIO RECINOS MD Apr 21, 2019 21:40
[2019-04-22] MEDS: LEVOTHYROXINE 150 MCG TABLET PO SCH (05:04)
[2019-04-22 05:50] VITALS: BP 161/98
[2019-04-22] MEDS: ASPIRIN 81 MG TAB.CHEW PO SCH (08:37)
[2019-04-22] MEDS: DIVALPROEX 125 MG CAP.SPRINK PO SCH ×2 (08:37→19:40)
[2019-04-22] MEDS: DOCUSATE SODIUM 100 MG CAPSULE PO SCH ×2 (08:37→19:40)
[2019-04-22] MEDS: FAMOTIDINE 20 MG TABLET PO SCH ×2 (08:38→19:41)
[2019-04-22] MEDS: MELOXICAM 15 MG TABLET. PO SCH (08:38)
[2019-04-22] MEDS: ACETAMINOPHEN 325 MG TABLET PO SCH ×2 (08:38→19:41)
[2019-04-22] MEDS: QUEtiapine 25 MG TABLET. PO SCH ×3 (08:38→19:41)
[2019-04-22] MEDS: POLYETHYLENE GLYCOL 3350 17 GM PACKET. PO SCH ×2 (08:38→19:41)
[2019-04-22] MEDS: THIAMINE 100 MG TABLET. PO SCH (08:39)
[2019-04-22] MEDS: SERTRALINE 50 MG TABLET. PO SCH (08:39)
[2019-04-22] MEDS: FOLIC ACID 1 MG TABLET PO SCH (08:43)
[2019-04-22] MEDS: QUEtiapine 50 MG TABLET. PO SCH (12:24)
--- NOTE | 2019-04-22 14:33 | OP ---
DATE OF SURGERY: 04/21/2019 PSYCHIATRIC PROGRESS NOTE This late entry 04/21/2019 covers elements not covered in my initial note. SUBJECTIVE: I met with the patient evening of 04/21/2019 and staffed with the treatment team meeting with entire team in the morning. The patient's , Elaine attended this conference. I reviewed the patient's diagnosis, progress at length. Appetite 75-100%, sleeping average 6 hours, wandering, confused, takes meds crushed in chocolate ice cream. No CV, , pulmonary, eye, ENT system symptoms on review. Reliability poor. MENTAL STATUS EXAMINATION: Oriented to himself. Insight, judgment, recent and remote memory, attention, concentration, fund of knowledge poor, consistent with his diagnosis mentioned in my initial note. PLAN: No change from initial note. MAN Gladis RECINOS MD DR: EVETTE/abdirahman JOB#: [id number] / [id number]
--- NOTE | 2019-04-22 15:12 | PN ---
DATE: 04/21/2019 PSYCHIATRIC PROGRESS NOTE This late entry 04/21/2019 covers elements not covered in my initial note. SUBJECTIVE: I met with the patient evening of 04/21/2019 and staffed with the treatment team meeting with entire team in the morning. The patient's , Elaine attended this conference. I reviewed the patient's diagnosis, progress at length. Appetite 75-100%, sleeping average 6 hours, wandering, confused, takes meds crushed in chocolate ice cream. No CV, , pulmonary, eye, ENT system symptoms on review. Reliability poor. MENTAL STATUS EXAMINATION: Oriented to himself. Insight, judgment, recent and remote memory, attention, concentration, fund of knowledge poor, consistent with his diagnosis mentioned in my initial note. PLAN: No change from initial note. MAN Gladis RECINOS MD DR: EVETTE/abdirahman JOB#: [id number] / [id number]
[2019-04-22 16:30] VITALS: BP 111/71
[2019-04-22] MEDS: MIRTAZAPINE 15 MG TABLET PO SCH (19:41)
[2019-04-22] MEDS: traZODone 50 MG TABLET. PO SCH (19:41)
[2019-04-22] MEDS: traZODone 50 MG TABLET. PO PRN (21:23)
--- NOTE | 2019-04-22 21:42 | PDOC ---
Exam Note: Sebastien Note: Please also refer to the separate dictated note~for this date of service dictated separately.~Patient seen individually. Discussed the patient with Nursing staff reviewed the chart.~Reviewed interim history and current functioning. Reviewed vital signs,~Labs/ Radiology~and current medications noted below. Continue current treatment with the changes noted in the dictated addendum note Assessment: Vital Signs/I&O: Vital Signs Date Time Temp Pulse Resp B/P (MAP) Pulse Ox O2 Delivery O2 Flow Rate FiO2 04/22/19 16:30 97.4 59 18 111/71 (84) 100 04/21/19 16:36 Room Air I & O 04/21/19 04/21/19 04/22/19 15:00 23:00 07:00 Intake Total 240 ml 240 ml 240 ml Balance 240 ml 240 ml 240 ml Current Medications: I have reviewed the current psychotropics carefully including drug interactions. Risk benefit ratio favors no change other than as noted in my dictated progress note. Diagnosis: Problems: (1) Medical clearance for psychiatric admission (2) Anxiety disorder (3) Major neurocognitive disorder (4) Dementia in Alzheimer's disease with delusions (5) Dementia in Alzheimer's disease with depression (6) Dementia, vascular, with delusions (7) Dementia, vascular, with depression (8) Impulse control disorder (9) Alzheimer's dementia with behavioral disturbance CECILIO RECINOS MD Apr 22, 2019 21:42
--- NOTE | 2019-04-22 23:27 | PN ---
DATE: 04/20/2019 PROGRESS NOTE This late entry, 04/20/2019, covers elements not covered in my initial note. SUBJECTIVE: I met with the patient in the evening. The patient slept 5 hours previous night. He has had no behavior problem. Takes his meds hidden in food. Received p.r.n. trazodone at night and slept better. REVIEW OF SYSTEMS: No CV, , pulmonary, eye, ENT system symptoms on review. Reliability poor. MENTAL STATUS EXAM: Oriented to himself. Insight, judgment, recent and remote memory, attention, concentration, fund of knowledge poor, consistent with his diagnosis mentioned in my initial note. PLAN: No change from initial note. MAN Gladis RECINOS MD DR: EVETTE/abdirahman JOB#: [id number] / [id number]
[2019-04-23 06:22] VITALS: BP 108/66
[2019-04-23] MEDS: LEVOTHYROXINE 150 MCG TABLET PO SCH (06:27)
[2019-04-23] MEDS: ASPIRIN 81 MG TAB.CHEW PO SCH (08:07)
[2019-04-23] MEDS: DOCUSATE SODIUM 100 MG CAPSULE PO SCH ×2 (08:07→19:49)
[2019-04-23] MEDS: POLYETHYLENE GLYCOL 3350 17 GM PACKET. PO SCH ×2 (08:08→19:50)
[2019-04-23] MEDS: MELOXICAM 15 MG TABLET. PO SCH (08:08)
[2019-04-23] MEDS: DIVALPROEX 125 MG CAP.SPRINK PO SCH ×2 (08:08→19:49)
[2019-04-23] MEDS: FAMOTIDINE 20 MG TABLET PO SCH ×2 (08:08→19:49)
[2019-04-23] MEDS: FOLIC ACID 1 MG TABLET PO SCH (08:08)
[2019-04-23] MEDS: QUEtiapine 25 MG TABLET. PO SCH ×3 (08:08→19:49)
[2019-04-23] MEDS: ACETAMINOPHEN 325 MG TABLET PO SCH ×2 (08:09→19:50)
[2019-04-23] MEDS: THIAMINE 100 MG TABLET. PO SCH (08:09)
[2019-04-23] MEDS: SERTRALINE 50 MG TABLET. PO SCH (08:09)
[2019-04-23] MEDS: QUEtiapine 50 MG TABLET. PO SCH (14:16)
[2019-04-23 14:55] LABS: BASO % 1 % (0-3); EOS # 0.1 x10^3/uL (0.0-0.7); EOS % 2 % (0-3); HEMATOCRIT 30.5 % (39.0-53.0); HEMOGLOBIN 9.9 g/dL (13.0-17.5); LYMPH # 0.7 x10^3/uL (1.0-4.8); LYMPH % 20 % (24-48); MEAN CORPUSCULAR HEMOGLOBIN 30 pg (25-35); MEAN CORPUSCULAR HGB CONC 33 g/dL (31-37); MEAN CORPUSCULAR VOLUME 93 fL (79-100); MONO # 0.4 x10^3/uL (0.0-1.1); MONO % 12 % (0-9); NEUT # 2.2 x10^3uL (1.8-7.7); NEUT % 65 % (31-73); PLATELET COUNT 247 x10^3/uL (140-400); RED CELL DISTRIBUTION WIDTH 15.3 % (11.5-14.5); WHITE BLOOD COUNT 3.4 x10^3/uL (4.0-11.0)
[2019-04-23 15:18] LABS: ALBUMIN 3.4 g/dL (3.4-5.0); ALBUMIN/GLOBULIN RATIO 1.1 (1.0-1.7); CALCIUM 8.6 mg/dL (8.5-10.1); CREATININE 1.1 mg/dL (0.7-1.3); GFR 65.8; POTASSIUM 4.5 mmol/L (3.5-5.1); TOTAL BILIRUBIN 0.4 mg/dL (0.2-1.0); TOTAL PROTEIN 6.5 g/dL (6.4-8.2)
[2019-04-23 16:09] VITALS: BP 111/71
[2019-04-23] MEDS: traZODone 50 MG TABLET. PO SCH (19:49)
[2019-04-23] MEDS: MIRTAZAPINE 15 MG TABLET PO SCH (19:49)
--- NOTE | 2019-04-23 22:59 | PDOC ---
Exam Note: Sebastien Note: Please also refer to the separate dictated note~for this date of service dictated separately.~Patient seen individually. Discussed the patient with Nursing staff reviewed the chart.~Reviewed interim history and current functioning. Reviewed vital signs,~Labs/ Radiology~and current medications noted below. Continue current treatment with the changes noted in the dictated addendum note Assessment: Vital Signs/I&O: Vital Signs Date Time Temp Pulse Resp B/P (MAP) Pulse Ox O2 Delivery O2 Flow Rate FiO2 04/23/19 16:09 97.7 55 20 111/71 (84) 100 04/21/19 16:36 Room Air I & O 04/22/19 04/22/19 04/23/19 15:00 23:00 07:00 Intake Total 480 ml 480 ml Balance 480 ml 480 ml Labs: Laboratory Tests Test 04/23/19 14:45 White Blood Count 3.4 x10^3/uL (4.0-11.0) L Red Blood Count 3.30 x10^6/uL (4.30-5.70) L Hemoglobin 9.9 g/dL (13.0-17.5) L Hematocrit 30.5 % (39.0-53.0) L Mean Corpuscular Volume 93 fL (79-100) Mean Corpuscular Hemoglobin 30 pg (25-35) Mean Corpuscular Hemoglobin Concent 33 g/dL (31-37) Red Cell Distribution Width 15.3 % (11.5-14.5) H Platelet Count 247 x10^3/uL (140-400) Neutrophils (%) (Auto) 65 % (31-73) Lymphocytes (%) (Auto) 20 % (24-48) L Monocytes (%) (Auto) 12 % (0-9) H Eosinophils (%) (Auto) 2 % (0-3) Basophils (%) (Auto) 1 % (0-3) Neutrophils # (Auto) 2.2 x10^3uL (1.8-7.7) Lymphocytes # (Auto) 0.7 x10^3/uL (1.0-4.8) L Monocytes # (Auto) 0.4 x10^3/uL (0.0-1.1) Eosinophils # (Auto) 0.1 x10^3/uL (0.0-0.7) Basophils # (Auto) 0.0 x10^3/uL (0.0-0.2) Sodium Level 144 mmol/L (136-145) Potassium Level 4.5 mmol/L (3.5-5.1) Chloride Level 111 mmol/L (98-107) H Carbon Dioxide Level 29 mmol/L (21-32) Anion Gap 4 (6-14) L Blood Urea Nitrogen 38 mg/dL (8-26) H Creatinine 1.1 mg/dL (0.7-1.3) Estimated GFR (Cockcroft-Gault) 65.8 BUN/Creatinine Ratio 35 (6-20) H Glucose Level 100 mg/dL (70-99) H Calcium Level 8.6 mg/dL (8.5-10.1) Total Bilirubin 0.4 mg/dL (0.2-1.0) Aspartate Amino Transferase (AST) 17 U/L (15-37) Alanine Aminotransferase (ALT) 46 U/L (16-63) Alkaline Phosphatase 86 U/L (46-116) Total Protein 6.5 g/dL (6.4-8.2) Albumin 3.4 g/dL (3.4-5.0) Albumin/Globulin Ratio 1.1 (1.0-1.7) Current Medications: I have reviewed the current psychotropics carefully including drug interactions. Risk benefit ratio favors no change other than as noted in my dictated progress note. Diagnosis: Problems: (1) Medical clearance for psychiatric admission (2) Anxiety disorder (3) Major neurocognitive disorder (4) Dementia in Alzheimer's disease with delusions (5) Dementia in Alzheimer's disease with depression (6) Dementia, vascular, with delusions (7) Dementia, vascular, with depression (8) Impulse control disorder (9) HTN (hypertension) (10) Alcohol dependency (11) Alzheimer's dementia with behavioral disturbance CECILIO RECINOS MD Apr 23, 2019 22:59
[2019-04-24 05:34] VITALS: BP 151/91
[2019-04-24] MEDS: LEVOTHYROXINE 150 MCG TABLET PO SCH ×2 (06:10→08:20)
[2019-04-24] MEDS: FAMOTIDINE 20 MG TABLET PO SCH ×2 (08:20→20:20)
[2019-04-24] MEDS: DOCUSATE SODIUM 100 MG CAPSULE PO SCH ×2 (08:20→20:20)
[2019-04-24] MEDS: FOLIC ACID 1 MG TABLET PO SCH (08:20)
[2019-04-24] MEDS: SERTRALINE 50 MG TABLET. PO SCH (08:20)
[2019-04-24] MEDS: ACETAMINOPHEN 325 MG TABLET PO SCH ×2 (08:20→20:21)
[2019-04-24] MEDS: QUEtiapine 25 MG TABLET. PO SCH ×3 (08:20→20:20)
[2019-04-24] MEDS: POLYETHYLENE GLYCOL 3350 17 GM PACKET. PO SCH ×2 (08:20→20:20)
[2019-04-24] MEDS: MELOXICAM 15 MG TABLET. PO SCH (08:20)
[2019-04-24] MEDS: THIAMINE 100 MG TABLET. PO SCH (08:21)
[2019-04-24] MEDS: DIVALPROEX 125 MG CAP.SPRINK PO SCH ×2 (08:21→20:20)
[2019-04-24] MEDS: ASPIRIN 81 MG TAB.CHEW PO SCH (08:23)
[2019-04-24] MEDS: QUEtiapine 50 MG TABLET. PO SCH (12:08)
[2019-04-24 15:38] VITALS: BP 99/60
[2019-04-24] MEDS: MIRTAZAPINE 15 MG TABLET PO SCH (20:20)
[2019-04-24] MEDS: traZODone 50 MG TABLET. PO SCH (20:20)
--- NOTE | 2019-04-24 21:35 | PDOC ---
Exam Note: Sebastien Note: Please also refer to the separate dictated note~for this date of service dictated separately.~Patient seen individually. Discussed the patient with Nursing staff reviewed the chart.~Reviewed interim history and current functioning. Reviewed vital signs,~Labs/ Radiology~and current medications noted below. Continue current treatment with the changes noted in the dictated addendum note Assessment: Vital Signs/I&O: Vital Signs Date Time Temp Pulse Resp B/P (MAP) Pulse Ox O2 Delivery O2 Flow Rate FiO2 04/24/19 15:38 98.0 57 20 99/60 (73) 100 Room Air I & O 04/23/19 04/23/19 04/24/19 14:59 22:59 06:59 Intake Total 240 ml 240 ml 120 ml Balance 240 ml 240 ml 120 ml Current Medications: I have reviewed the current psychotropics carefully including drug interactions. Risk benefit ratio favors no change other than as noted in my dictated progress note. Diagnosis: Problems: (1) Anxiety disorder (2) Major neurocognitive disorder (3) Dementia in Alzheimer's disease with delusions (4) Dementia in Alzheimer's disease with depression (5) Dementia, vascular, with delusions (6) Dementia, vascular, with depression (7) Impulse control disorder CECILIO RECINOS MD Apr 24, 2019 21:35
--- NOTE | 2019-04-25 00:18 | PN ---
DATE: 04/22/2019 PSYCHIATRIC PROGRESS NOTE This late entry 04/22/2019 covers elements not covered in my initial note. SUBJECTIVE: I met with the patient evening of 04/22/2019. The patient slept 4-1/4 hours previous night. He remains confused, but has not been agitated. REVIEW OF SYSTEMS: No CV, , pulmonary, eye, ENT system symptoms on review. Reliability poor. MENTAL STATUS EXAM: Oriented to himself. Insight, judgment, recent and remote memory, attention, concentration, fund of knowledge poor, consistent with his diagnosis mentioned in my initial note. PLAN: No change from initial note. MAN Gladis RECINOS MD DR: EVETTE/abdirahman JOB#: [id number] / [id number]
--- NOTE | 2019-04-25 00:27 | PN ---
DATE: 04/23/2019 PSYCHIATRIC PROGRESS NOTE. This is a late entry of 04/23/2019, covers the elements not covered in my initial note. SUBJECTIVE: I met with the patient in the evening of 04/23/2019. The patient slept 4-1/4 hours previous night. It was his anniversary, but he seemed oblivious to this. He was agitated at bedtime, took meds crushed in ice cream previous night. REVIEW OF SYSTEMS: No CV, , pulmonary, eye, ENT system symptoms on review. Gait somewhat unsteady with short steps. Reliability poor. MENTAL STATUS EXAM: Oriented to himself. Insight, judgment, recent and remote memory, attention, concentration, fund of knowledge poor, consistent with his diagnosis mentioned in my initial note. PLAN: No change from initial note. MAN Gladis RECINOS MD DR: EVETTE/abdirahman JOB#: [id number] / [id number]
[2019-04-25 06:07] VITALS: BP 128/75
[2019-04-25] MEDS: SERTRALINE 50 MG TABLET. PO SCH (08:06)
[2019-04-25] MEDS: ACETAMINOPHEN 325 MG TABLET PO SCH ×2 (08:07→19:44)
[2019-04-25] MEDS: POLYETHYLENE GLYCOL 3350 17 GM PACKET. PO SCH ×2 (08:07→19:43)
[2019-04-25] MEDS: DIVALPROEX 125 MG CAP.SPRINK PO SCH ×2 (08:07→19:43)
[2019-04-25] MEDS: DOCUSATE SODIUM 100 MG CAPSULE PO SCH ×2 (08:07→19:43)
[2019-04-25] MEDS: FAMOTIDINE 20 MG TABLET PO SCH ×2 (08:07→19:44)
[2019-04-25] MEDS: ASPIRIN 81 MG TAB.CHEW PO SCH (08:08)
[2019-04-25] MEDS: THIAMINE 100 MG TABLET. PO SCH (08:08)
[2019-04-25] MEDS: MELOXICAM 15 MG TABLET. PO SCH (08:08)
[2019-04-25] MEDS: FOLIC ACID 1 MG TABLET PO SCH (08:08)
[2019-04-25] MEDS: QUEtiapine 25 MG TABLET. PO SCH ×3 (08:08→19:43)
[2019-04-25] MEDS: QUEtiapine 50 MG TABLET. PO SCH (13:28)
[2019-04-25 16:10] VITALS: BP 102/68
[2019-04-25] MEDS: traZODone 50 MG TABLET. PO SCH (19:43)
[2019-04-25] MEDS: MIRTAZAPINE 15 MG TABLET PO SCH (19:47)
--- NOTE | 2019-04-25 21:44 | PDOC ---
Exam Note: Sebastien Note: Please also refer to the separate dictated note~for this date of service dictated separately.~Patient seen individually. Discussed the patient with Nursing staff reviewed the chart.~Reviewed interim history and current functioning. Reviewed vital signs,~Labs/ Radiology~and current medications noted below. Continue current treatment with the changes noted in the dictated addendum note Assessment: Vital Signs/I&O: Vital Signs Date Time Temp Pulse Resp B/P (MAP) Pulse Ox O2 Delivery O2 Flow Rate FiO2 04/25/19 16:10 98.1 57 16 102/68 (79) 98 04/24/19 15:38 Room Air I & O 04/24/19 04/24/19 04/25/19 14:59 22:59 06:59 Intake Total 720 ml 600 ml Balance 720 ml 600 ml Current Medications: I have reviewed the current psychotropics carefully including drug interactions. Risk benefit ratio favors no change other than as noted in my dictated progress note. Diagnosis: Problems: (1) Anxiety disorder (2) Major neurocognitive disorder (3) Dementia in Alzheimer's disease with delusions (4) Dementia in Alzheimer's disease with depression (5) Dementia, vascular, with delusions (6) Dementia, vascular, with depression (7) Impulse control disorder (8) Alzheimer's dementia with behavioral disturbance CECILIO RECINOS MD Apr 25, 2019 21:44
--- NOTE | 2019-04-25 22:41 | PN ---
DATE: 04/24/2019 PROGRESS NOTE This late entry 04/24/2019 covers elements not covered in my initial note. SUBJECTIVE: I met with the patient evening of 04/24/2019. The patient slept 5-1/2 hours previous night. He remains confused, at times was agitated in the dining room, but this is mainly when he is around increased stimuli. He was pushing a walker around and compliant with medications. REVIEW OF SYSTEMS: No CV, , pulmonary, eye, ENT system symptoms on review. Reliability poor. MENTAL STATUS EXAM: Oriented to himself. Insight, judgment, recent and remote memory, attention, concentration, fund of knowledge poor, consistent with his diagnosis mentioned in my initial note. PLAN: No change from initial note. MAN Gladis RECINOS MD DR: EVETTE/abdirahman JOB#: [id number] / [id number]
[2019-04-26] MEDS: LEVOTHYROXINE 150 MCG TABLET PO SCH (05:41)
[2019-04-26 06:15] VITALS: BP 138/80
[2019-04-26] MEDS: ASPIRIN 81 MG TAB.CHEW PO SCH (07:56)
[2019-04-26] MEDS: DIVALPROEX 125 MG CAP.SPRINK PO SCH ×2 (07:56→20:20)
[2019-04-26] MEDS: DOCUSATE SODIUM 100 MG CAPSULE PO SCH ×2 (07:57→20:20)
[2019-04-26] MEDS: THIAMINE 100 MG TABLET. PO SCH (07:57)
[2019-04-26] MEDS: QUEtiapine 25 MG TABLET. PO SCH ×3 (07:57→20:20)
[2019-04-26] MEDS: SERTRALINE 50 MG TABLET. PO SCH (07:57)
[2019-04-26] MEDS: ACETAMINOPHEN 325 MG TABLET PO SCH ×2 (07:57→20:20)
[2019-04-26] MEDS: MELOXICAM 15 MG TABLET. PO SCH (07:57)
[2019-04-26] MEDS: FOLIC ACID 1 MG TABLET PO SCH (07:58)
[2019-04-26] MEDS: POLYETHYLENE GLYCOL 3350 17 GM PACKET. PO SCH ×2 (07:58→20:20)
[2019-04-26] MEDS: FAMOTIDINE 20 MG TABLET PO SCH ×2 (07:58→20:20)
[2019-04-26] MEDS: QUEtiapine 50 MG TABLET. PO SCH (13:10)
[2019-04-26 15:56] VITALS: BP 96/61
[2019-04-26] MEDS: traZODone 50 MG TABLET. PO SCH (20:20)
[2019-04-26] MEDS: MIRTAZAPINE 15 MG TABLET PO SCH (20:20)
--- NOTE | 2019-04-26 21:55 | PDOC ---
Exam Note: Sebastien Note: Please also refer to the separate dictated note~for this date of service dictated separately.~Patient seen individually. Discussed the patient with Nursing staff reviewed the chart.~Reviewed interim history and current functioning. Reviewed vital signs,~Labs/ Radiology~and current medications noted below. Continue current treatment with the changes noted in the dictated addendum note Assessment: Vital Signs/I&O: Vital Signs Date Time Temp Pulse Resp B/P (MAP) Pulse Ox O2 Delivery O2 Flow Rate FiO2 04/26/19 15:56 97.6 62 20 96/61 (73) 100 Room Air I & O 04/25/19 04/25/19 04/26/19 15:00 23:00 07:00 Intake Total 720 ml 240 ml Balance 720 ml 240 ml Current Medications: I have reviewed the current psychotropics carefully including drug interactions. Risk benefit ratio favors no change other than as noted in my dictated progress note. Diagnosis: Problems: (1) Anxiety disorder (2) Major neurocognitive disorder (3) Dementia in Alzheimer's disease with delusions (4) Dementia in Alzheimer's disease with depression (5) Dementia, vascular, with delusions (6) Dementia, vascular, with depression (7) Impulse control disorder (8) Alzheimer's dementia with behavioral disturbance CECILIO RECINOS MD Apr 26, 2019 21:55
--- NOTE | 2019-04-27 00:01 | PN ---
DATE: 04/25/2019 PSYCHIATRIC PROGRESS NOTE This late entry, 04/25, covers elements not covered in my initial note. SUBJECTIVE: I met with the patient evening of 04/25. The patient slept 6 hours previous night. He has had no behaviors, remains confused, somewhat withdrawn, little agitated when his wet briefs were being changed by nursing staff. Slept 6 hours. REVIEW OF SYSTEMS: No CV, , pulmonary, eye, ENT system symptoms on review. Reliability poor. MENTAL STATUS EXAM: Oriented to himself. Insight, judgment, recent and remote memory, attention, concentration, fund of knowledge poor, consistent with his diagnosis mentioned in my initial note. PLAN: No change from initial note. MAN Gladis RECINOS MD DR: EVETTE/abdirahman JOB#: [id number] / [id number]
[2019-04-27] MEDS ORDERED: ACET325T21 PO (02:00)
[2019-04-27] MEDS ORDERED: DIVA125C2 PO (02:02)
[2019-04-27] MEDS ORDERED: DOCU100C28 PO (02:03)
[2019-04-27] MEDS ORDERED: LEVO150T5 PO (02:04)
[2019-04-27] MEDS ORDERED: MAG355OR17 PO (02:04)
[2019-04-27] MEDS ORDERED: MAGN296S9 PO (02:05)
[2019-04-27] MEDS ORDERED: MAGN2400 PO (02:05)
[2019-04-27] MEDS ORDERED: MELO15TA23 PO (02:06)
[2019-04-27] MEDS ORDERED: METH29OI TP (02:07)
[2019-04-27] MEDS ORDERED: MIRT15TA3 PO (02:07)
[2019-04-27] MEDS ORDERED: OLAN5TAB5 PO (02:08)
[2019-04-27] MEDS ORDERED: POLY2500 PO (02:09)
[2019-04-27] MEDS ORDERED: QUET50TA PO (02:10)
[2019-04-27] MEDS ORDERED: QUET25TA5 PO (02:11)
[2019-04-27] MEDS ORDERED: HYDR25TA PO (02:13)
[2019-04-27] MEDS ORDERED: SERT50TA PO (02:13)
[2019-04-27] MEDS ORDERED: TRAZ-120 PO (02:14)
[2019-04-27 06:23] VITALS: BP 112/64
[2019-04-27] MEDS: LEVOTHYROXINE 150 MCG TABLET PO SCH (06:54)
[2019-04-27] MEDS: FAMOTIDINE 20 MG TABLET PO SCH (07:45)
[2019-04-27] MEDS: THIAMINE 100 MG TABLET. PO SCH (07:45)
[2019-04-27] MEDS: QUEtiapine 25 MG TABLET. PO SCH (07:46)
[2019-04-27] MEDS: SERTRALINE 50 MG TABLET. PO SCH (07:46)
[2019-04-27] MEDS: ACETAMINOPHEN 325 MG TABLET PO SCH (07:46)
[2019-04-27] MEDS: DOCUSATE SODIUM 100 MG CAPSULE PO SCH (07:46)
[2019-04-27] MEDS: FOLIC ACID 1 MG TABLET PO SCH (07:46)
[2019-04-27] MEDS: ASPIRIN 81 MG TAB.CHEW PO SCH (07:46)
[2019-04-27] MEDS: POLYETHYLENE GLYCOL 3350 17 GM PACKET. PO SCH (07:47)
[2019-04-27] MEDS: MELOXICAM 15 MG TABLET. PO SCH (07:47)
[2019-04-27] MEDS: DIVALPROEX 125 MG CAP.SPRINK PO SCH (07:47)
--- NOTE | 2019-04-27 21:32 | PDOC ---
Exam Note: Sebastien Note: Please also refer to the separate dictated note~for this date of service dictated separately.~Patient seen individually. Discussed the patient with Nursing staff reviewed the chart.~Reviewed interim history and current functioning. Reviewed vital signs,~Labs/ Radiology~and current medications noted below. Continue current treatment with the changes noted in the dictated addendum note Assessment: Vital Signs/I&O: Vital Signs Date Time Temp Pulse Resp B/P (MAP) Pulse Ox O2 Delivery O2 Flow Rate FiO2 04/27/19 06:23 97.0 59 20 112/64 (80) 99 Room Air I & O 04/26/19 04/26/19 04/27/19 14:59 22:59 06:59 Intake Total 720 ml 240 ml 240 ml Balance 720 ml 240 ml 240 ml Current Medications: I have reviewed the current psychotropics carefully including drug interactions. Risk benefit ratio favors no change other than as noted in my dictated progress note. Diagnosis: Problems: (1) Anxiety disorder (2) Major neurocognitive disorder (3) Dementia in Alzheimer's disease with delusions (4) Dementia in Alzheimer's disease with depression (5) Dementia, vascular, with delusions (6) Dementia, vascular, with depression (7) Impulse control disorder (8) Alzheimer's dementia with behavioral disturbance CECILIO RECINOS MD Apr 27, 2019 21:32
--- NOTE | 2019-04-28 04:29 | PN ---
DATE: 04/26/2019 PSYCHIATRIC PROGRESS NOTE This late entry of 04/26/2019 covers elements not covered in my initial note. SUBJECTIVE: I met with the patient in evening of 04/26/2019. The patient slept 8-1/4 hours previous night. He remains confused, somewhat better, intermittently agitated with cares over 2 hours previous night when staff assisted him with his dirty briefs. Much better during the day on 04/26/2019. REVIEW OF SYSTEMS: No CV, , pulmonary, eye, ENT system symptoms on review. Reliability poor. MENTAL STATUS EXAM: Oriented to himself. Insight, judgment, recent and remote memory, attention, concentration, fund of knowledge poor, consistent with his diagnosis mentioned in my initial note. PLAN: No change from initial note. MAN Gladis RECINOS MD DR: EVETTE/abdirahman JOB#: [id number] / [id number]
--- NOTE | 2019-04-29 18:28 | DS ---
DATE OF DISCHARGE: 04/27/2019 DISCHARGE SUMMARY AND PSYCHIATRIC PROGRESS NOTE This late entry, 04/27/2019, covers elements not covered in my initial note. REASON FOR ADMISSION: Please refer to the admission history for details. Briefly, the patient is a 73-year-old male referred to us from [facility], referred by his primary care physician after he was aggressive to his , combative with staff, spitting out his medications, yelling, cursing, increased agitation, insomnia psychotic within the context of his diagnosis of major neurocognitive disorder, Alzheimer, vascular with delusion, depression, behavioral disturbance. He had failed outpatient psychiatric interventions resulting in this referral. SIGNIFICANT FINDINGS AND CLINICAL COURSE: Following admission, the patient was seen daily individually by myself from a psychiatric standpoint, Medical followup with Dr. Posada. The patient was extremely confused, agitated, restless. Adjustments were made in his psychotropics and he seemed to respond to a combination of Zoloft 50 mg a day; trazodone 50 mg at bedtime, december repeat x 1; Zyprexa p.r.n.; Depakote Sprinkles 500 mg b.i.d.; Remeron 15 mg at bedtime; Seroquel 25 mg 9:00 a.m., 1700 hours and 2100 hours and 50 mg at 1300 hours; Atarax p.r.n.; Valproic acid level therapeutic at 58. REVIEW OF SYSTEMS: Prior to discharge on 04/27/2019, no CV, , pulmonary, eye, ENT system symptoms on review. Gait unsteady. Reliability poor. MENTAL STATUS EXAM: Oriented to himself. Insight, judgment, recent and remote memory, attention, concentration, fund of knowledge poor, consistent with his diagnosis mentioned in my initial note. FINAL DIAGNOSES: Major neurocognitive disorder, Alzheimer, vascular with delusion, depression, behavioral disturbance; anxiety disorder, unspecified; impulse control disorder, unspecified. Rest unchanged. DISCHARGE MEDICATIONS: Please refer to the MRAD. DISCHARGE INSTRUCTIONS: Outpatient psychiatric and medical followup at the [facility]. CECILIO RECINOS MD DR: EVETTE/abdirahman JOB#: [id number] / [id number]
== END 2019-04-27 11:07 | DRG 57 ==
LOC: ER 12:04 → GEROPSY 16:48
PROVIDERS: ADMIT Psychiatry & Neurology Psychiatry; ATTEND Psychiatry & Neurology Psychiatry
DX: G30.9 Alzheimer's disease, unspecified (principal); F02.81 Dementia in other diseases classified elsewhere, unspecified severity, with behavioral disturbance; G81.91 Hemiplegia, unspecified affecting right dominant side; F01.51 Vascular dementia, unspecified severity, with behavioral disturbance; F32.9 Major depressive disorder, single episode, unspecified; F41.9 Anxiety disorder, unspecified; F63.9 Impulse disorder, unspecified; F10.21 Alcohol dependence, in remission; I10 Essential (primary) hypertension; E89.0 Postprocedural hypothyroidism; G40.909 Epilepsy, unspecified, not intractable, without status epilepticus; I69.320 Aphasia following cerebral infarction; J45.909 Unspecified asthma, uncomplicated; M15.9 Polyosteoarthritis, unspecified; N40.0 Benign prostatic hyperplasia without lower urinary tract symptoms; Z79.899 Other long term (current) drug therapy; Z85.850 Personal history of malignant neoplasm of thyroid; Z91.81 History of falling; Z91.83 Wandering in diseases classified elsewhere
CPT/HCPCS: 36415; 70450; 73502; 73562; 74018; 80053; 80061; 80164; 81001; 82306; 83036; 83540; 83550; 83605; 83735; 84436; 84443; 84480; 84550; 85007; 85025; 85027; 85651; 86140; 86592; 87045; 93005; 94640; 96372; 99407; J1630; J2060; J7040; P9612; 97116; 97530; 99285-25; J7030

== ENCOUNTER 2019-05-17 12:38 | Inpatient (IN) | payer MEDICARE ==
[~2019-05-17] VITALS: Ht 170.2 cm; Wt 68.9 kg
[~2019-05-17 12:38] MED LIST: ACET325T21 PO; ACET325T9 PO; ALPR0.25 PO; ALPR0.5T PO; ALPR1TAB2 PO; ASPI-630 PO; BISA10SU4 RC; DIVA125C2 PO; DOCU100C28 PO; FAMO20TA5 PO; FOLI1TAB16 PO; HYDR25TA PO; LEVE100S8 PO; LEVO137T3 PO; LEVO150T5 PO; LEXAPRO10 MG PO; MAG355OR17 PO; MAGN2400 PO; MAGN296S9 PO; MELO15TA23 PO; METH28OI2 TP; MIRT15TA3 PO; OLAN5TAB5 PO; POLY2500 PO; QUET25TA5 PO; QUET50TA PO; SERT50TA PO; THIA100T22 PO; TRAZ-120 PO
[2019-05-17 13:16] LABS: BASO % 1 % (0-3); EOS # 0.2 x10^3/uL (0.0-0.7); EOS % 5 % (0-3); HEMATOCRIT 27.1 % (39.0-53.0); HEMOGLOBIN 9.1 g/dL (13.0-17.5); LYMPH % 30 % (24-48); MEAN CORPUSCULAR HEMOGLOBIN 31 pg (25-35); MEAN CORPUSCULAR HGB CONC 33 g/dL (31-37); MEAN CORPUSCULAR VOLUME 93 fL (79-100); MONO # 0.3 x10^3/uL (0.0-1.1); MONO % 10 % (0-9); NEUT # 1.8 x10^3uL (1.8-7.7); NEUT % 55 % (31-73); PLATELET COUNT 270 x10^3/uL (140-400); RED BLOOD COUNT 2.93 x10^6/uL (4.30-5.70); RED CELL DISTRIBUTION WIDTH 16.3 % (11.5-14.5); WHITE BLOOD COUNT 3.3 x10^3/uL (4.0-11.0)
[2019-05-17 13:24] LABS: BACTERIA,URINE 0 /HPF (0-FEW); BILIRUBIN,URINE NEG (NEG); CLARITY,URINE CLEAR; COLOR,URINE YELLOW; GLUCOSE,URINE NEG (NEG); NITRITE,URINE NEG (NEG); RBC,URINE 0 /HPF (0-2); SQUAMOUS EPITHELIAL CELL,UR OCC /LPF; UROBILINOGEN,URINE 0.2 mg/dL (0.2 mg/dL); WBC,URINE 0 /HPF (0-4)
[2019-05-17 13:28] LABS: ALBUMIN 3.2 g/dL (3.4-5.0); CREATININE 0.9 mg/dL (0.7-1.3); GFR 82.9; MAGNESIUM 2.3 mg/dL (1.8-2.4); POTASSIUM 4.5 mmol/L (3.5-5.1); TOTAL BILIRUBIN 0.3 mg/dL (0.2-1.0); TOTAL PROTEIN 6.4 g/dL (6.4-8.2)
--- NOTE | 2019-05-17 13:28 | EKG ---
[address] [address] Test Date: 2019-05-17 Test Time: 12:52:21 Pat Name: TERRANCE BORGES Department: Room: Gender: M Associate Pastor: : [id number] Requested By: CATHERINE MENDOZA Order Number: [id number] Reading MD: Tai Concepcion MD Measurements Intervals [place] Rate: 51 P: 29 [place]: 172 QRS: -21 QRSD: 94 T: 30 QT: 450 QTc: 417 Interpretive Statements SINUS RHYTHM Electronically Signed On 05-29-2019 22:03:42 CDT by Tai Concepcion MD
--- NOTE | 2019-05-17 14:22 | PHYS DOC ---
Past History Past Medical History: Dementia, Hypothyroid, Stroke Past Surgical History: No Surgical History Alcohol Use: Occasionally Drug Use: None Adult General Chief Complaint Chief Complaint: PSYCH EVALUATION [facility] HPI 73-year-old male presents for medical clearance for behavioral health admission. He was reported to have significant anxiety and impulse control. The patient denies any medical complaints or pain to me. Denies fever or chills. Review of Systems Review of Systems Constitutional: Denies fever or chills [] Eyes: Denies change in visual acuity, redness, or eye pain [] HENT: Denies nasal congestion or sore throat [] Respiratory: Denies cough or shortness of breath [] Cardiovascular: No additional information not addressed in HPI [] GI: Denies abdominal pain, nausea, vomiting, bloody stools or diarrhea [] : Denies dysuria or hematuria [] Musculoskeletal: Denies back pain or joint pain [] Integument: Denies rash or skin lesions [] Neurologic: Denies headache, focal weakness or sensory changes [] Endocrine: Denies polyuria or polydipsia [] All other systems were reviewed and found to be within normal limits, except as documented in this note. Allergies Allergies Allergies Coded Allergies Type Severity Reaction Last Updated Verified Sulfa (Sulfonamide Antibiotics) Allergy Intermediate 03/28/19 Yes Physical Exam Physical Exam Constitutional: Well developed, well nourished, no acute distress, non-toxic appearance. [] HENT: Normocephalic, atraumatic, bilateral external ears normal, oropharynx moist, no oral exudates, nose normal. [] Eyes: PERRLA, EOMI, conjunctiva normal, no discharge. [] Neck: Normal range of motion, no tenderness, supple, no stridor. [] Cardiovascular:Heart rate regular rhythm, no murmur [] Lungs & Thorax: Bilateral breath sounds clear to auscultation [] Abdomen: Bowel sounds normal, soft, no tenderness, no masses, no pulsatile masses. [] Skin: Warm, dry, no erythema, no rash. [] Back: No tenderness, no CVA tenderness. [] Extremities: No tenderness, no cyanosis, no clubbing, ROM intact, no edema. [] Neurologic: Alert and oriented X 3, normal motor function, normal sensory function, no focal deficits noted. [] Psychologic: Affect normal, judgement normal, mood normal. [] Current Patient Data Vital Signs Vital Signs Date Time Temp Pulse Resp B/P (MAP) Pulse Ox O2 Delivery O2 Flow Rate FiO2 05/17/19 13:35 98.0 51 18 99 Room Air 05/17/19 12:53 154/75 (101) Lab Results Laboratory Tests Test 05/17/19 12:44 05/17/19 12:58 Urine Collection Type Unknown Urine Color Yellow Urine Clarity Clear Urine pH 6.0 Urine Specific Oscar 1.015 Urine Protein Neg (NEG-TRACE) Urine Glucose (UA) Neg mg/dL (NEG) Urine Ketones (Stick) Neg mg/dL (NEG) Urine Blood Neg (NEG) Urine Nitrite Neg (NEG) Urine Bilirubin Neg (NEG) Urine Urobilinogen Dipstick 0.2 mg/dL (0.2 mg/dL) Urine Leukocyte Esterase Neg (NEG) Urine RBC 0 /HPF (0-2) Urine WBC 0 /HPF (0-4) Urine Squamous Epithelial Cells Occ /LPF Urine Bacteria 0 /HPF (0-FEW) White Blood Count 3.3 x10^3/uL (4.0-11.0) L Red Blood Count 2.93 x10^6/uL (4.30-5.70) L Hemoglobin 9.1 g/dL (13.0-17.5) L Hematocrit 27.1 % (39.0-53.0) L Mean Corpuscular Volume 93 fL (79-100) Mean Corpuscular Hemoglobin 31 pg (25-35) Mean Corpuscular Hemoglobin Concent 33 g/dL (31-37) Red Cell Distribution Width 16.3 % (11.5-14.5) H Platelet Count 270 x10^3/uL (140-400) Neutrophils (%) (Auto) 55 % (31-73) Lymphocytes (%) (Auto) 30 % (24-48) Monocytes (%) (Auto) 10 % (0-9) H Eosinophils (%) (Auto) 5 % (0-3) H Basophils (%) (Auto) 1 % (0-3) Neutrophils # (Auto) 1.8 x10^3uL (1.8-7.7) Lymphocytes # (Auto) 1.0 x10^3/uL (1.0-4.8) Monocytes # (Auto) 0.3 x10^3/uL (0.0-1.1) Eosinophils # (Auto) 0.2 x10^3/uL (0.0-0.7) Basophils # (Auto) 0.0 x10^3/uL (0.0-0.2) Sodium Level 143 mmol/L (136-145) Potassium Level 4.5 mmol/L (3.5-5.1) Chloride Level 108 mmol/L (98-107) H Carbon Dioxide Level 28 mmol/L (21-32) Anion Gap 7 (6-14) Blood Urea Nitrogen 27 mg/dL (8-26) H Creatinine 0.9 mg/dL (0.7-1.3) Estimated GFR (Cockcroft-Gault) 82.9 BUN/Creatinine Ratio 30 (6-20) H Glucose Level 95 mg/dL (70-99) Calcium Level 8.0 mg/dL (8.5-10.1) L Magnesium Level 2.3 mg/dL (1.8-2.4) Total Bilirubin 0.3 mg/dL (0.2-1.0) Aspartate Amino Transferase (AST) 23 U/L (15-37) Alanine Aminotransferase (ALT) 37 U/L (16-63) Alkaline Phosphatase 74 U/L (46-116) Total Protein 6.4 g/dL (6.4-8.2) Albumin 3.2 g/dL (3.4-5.0) L Albumin/Globulin Ratio 1.0 (1.0-1.7) EKG EKG [] Radiology/Procedures Radiology/Procedures [] Course & Med Decision Making Course & Med Decision Making Pertinent Labs and Imaging studies reviewed. (See chart for details) The patient's labs are unremarkable. His urinalysis is unremarkable. He is medically stable for behavioral health admission at this time. [] Dragon Disclaimer Dragon Disclaimer This electronic medical record was generated, in whole or in part, using a voice recognition dictation system. Departure Departure: Impression: Primary Impression: Medical clearance for psychiatric admission Disposition: ADMITTED INPATIENT Condition: STABLE Referrals: PADMINI MORTON (PCP) CATHERINE MENDOZA DO May 17, 2019 14:22
[2019-05-17] MEDS ORDERED: ALBU2.5V8 INH (16:04)
[2019-05-17 17:38] VITALS: BP 139/75
[2019-05-17] MEDS ORDERED: MAG HYDROX/AL HYDROX/SIMETH 30 ML ORAL.SUSP PO PRN (17:45)
[2019-05-17] MEDS ORDERED: METHYL SALICYLATE/MENTHOL TOPICAL OINTMENT 57GM TUBE. TP PRN ×2 (17:45→18:00)
[2019-05-17] MEDS ORDERED: MAGNESIUM HYDROXIDE 2,400 MG/30 ML ORAL.SUSP. PO PRN (17:45)
[2019-05-17] MEDS ORDERED: BISACODYL 10 MG SUPP.RECT RC PRN (18:00)
[2019-05-17] MEDS ORDERED: NON FORMULARY ITEM (Mag Hydrox/Al Hydrox/Simeth (Advanced Antacid Liquid) 15 ML) PO PRN (18:00)
[2019-05-17] MEDS ORDERED: ACETAMINOPHEN 325 MG TABLET PO PRN (18:00)
[2019-05-17] MEDS ORDERED: MAGNESIUM CITRATE 296 ML SOLUTION. PO PRN (18:00)
[2019-05-17] MEDS ORDERED: NON FORMULARY ITEM (Magnesium Hydroxide (Milk Of Magnesia) 2,400 MG) PO PRN (18:00)
[2019-05-17] MEDS: QUEtiapine 25 MG TABLET. PO SCH (19:55)
[2019-05-17] MEDS: traZODone 50 MG TABLET. PO SCH (19:55)
[2019-05-17] MEDS: DIVALPROEX 125 MG CAP.SPRINK PO SCH (19:55)
[2019-05-17] MEDS: MIRTAZAPINE 15 MG TABLET PO SCH (19:55)
[2019-05-17] MEDS: FAMOTIDINE 20 MG TABLET PO SCH (19:55)
[2019-05-17] MEDS: POLYETHYLENE GLYCOL 3350 17 GM PACKET. PO SCH (19:55)
[2019-05-17] MEDS: DOCUSATE SODIUM 100 MG CAPSULE PO SCH (19:55)
[2019-05-17] MEDS: ACETAMINOPHEN 325 MG TABLET PO SCH (19:55)
--- NOTE | 2019-05-17 22:06 | PDOC ---
Exam Note: Sebastien Note: Please also refer to the separate dictated note~for this date of service dictated separately. Discussed the patient with Nursing staff reviewed the chart.~Reviewed interim history and current functioning. Reviewed vital signs,~Labs/ Radiology~and current medications noted below. Continue current treatment with the changes noted in the dictated addendum note Assessment: Vital Signs/I&O: Vital Signs Date Time Temp Pulse Resp B/P (MAP) Pulse Ox O2 Delivery O2 Flow Rate FiO2 05/17/19 17:38 98.1 60 20 139/75 (96) 99 05/17/19 14:38 Room Air Labs: Laboratory Tests Test 05/17/19 12:44 05/17/19 12:58 Urine Collection Type Unknown Urine Color Yellow Urine Clarity Clear Urine pH 6.0 Urine Specific [place] 1.015 Urine Protein Neg (NEG-TRACE) Urine Glucose (UA) Neg mg/dL (NEG) Urine Ketones (Stick) Neg mg/dL (NEG) Urine Blood Neg (NEG) Urine Nitrite Neg (NEG) Urine Bilirubin Neg (NEG) Urine Urobilinogen Dipstick 0.2 mg/dL (0.2 mg/dL) Urine Leukocyte Esterase Neg (NEG) Urine RBC 0 /HPF (0-2) Urine WBC 0 /HPF (0-4) Urine Squamous Epithelial Cells Occ /LPF Urine Bacteria 0 /HPF (0-FEW) White Blood Count 3.3 x10^3/uL (4.0-11.0) L Red Blood Count 2.93 x10^6/uL (4.30-5.70) L Hemoglobin 9.1 g/dL (13.0-17.5) L Hematocrit 27.1 % (39.0-53.0) L Mean Corpuscular Volume 93 fL (79-100) Mean Corpuscular Hemoglobin 31 pg (25-35) Mean Corpuscular Hemoglobin Concent 33 g/dL (31-37) Red Cell Distribution Width 16.3 % (11.5-14.5) H Platelet Count 270 x10^3/uL (140-400) Neutrophils (%) (Auto) 55 % (31-73) Lymphocytes (%) (Auto) 30 % (24-48) Monocytes (%) (Auto) 10 % (0-9) H Eosinophils (%) (Auto) 5 % (0-3) H Basophils (%) (Auto) 1 % (0-3) Neutrophils # (Auto) 1.8 x10^3uL (1.8-7.7) Lymphocytes # (Auto) 1.0 x10^3/uL (1.0-4.8) Monocytes # (Auto) 0.3 x10^3/uL (0.0-1.1) Eosinophils # (Auto) 0.2 x10^3/uL (0.0-0.7) Basophils # (Auto) 0.0 x10^3/uL (0.0-0.2) Sodium Level 143 mmol/L (136-145) Potassium Level 4.5 mmol/L (3.5-5.1) Chloride Level 108 mmol/L (98-107) H Carbon Dioxide Level 28 mmol/L (21-32) Anion Gap 7 (6-14) Blood Urea Nitrogen 27 mg/dL (8-26) H Creatinine 0.9 mg/dL (0.7-1.3) Estimated GFR (Cockcroft-Gault) 82.9 BUN/Creatinine Ratio 30 (6-20) H Glucose Level 95 mg/dL (70-99) Calcium Level 8.0 mg/dL (8.5-10.1) L Magnesium Level 2.3 mg/dL (1.8-2.4) Total Bilirubin 0.3 mg/dL (0.2-1.0) Aspartate Amino Transferase (AST) 23 U/L (15-37) Alanine Aminotransferase (ALT) 37 U/L (16-63) Alkaline Phosphatase 74 U/L (46-116) Total Protein 6.4 g/dL (6.4-8.2) Albumin 3.2 g/dL (3.4-5.0) L Albumin/Globulin Ratio 1.0 (1.0-1.7) Current Medications: Meds: Current Medications Medications (Trade) Dose Ordered Sig/Moo Route PRN Reason Start Time Stop Time Status Last Admin Dose Admin Acetaminophen (Tylenol) 650 mg BID PO 05/17/19 21:00 05/17/19 19:56 Divalproex Sodium (Depakote Sprinkles) 500 mg BID PO 05/17/19 21:00 05/17/19 19:56 Docusate Sodium (Colace) 100 mg BID PO 05/17/19 21:00 05/17/19 19:56 Famotidine (Pepcid) 20 mg BID PO 05/17/19 21:00 05/17/19 19:56 Mirtazapine (Remeron) 15 mg HS PO 05/17/19 21:00 05/17/19 19:56 Quetiapine Fumarate (SEROquel) 25 mg TID@0900,1700,2100 PO 05/17/19 21:00 05/17/19 19:56 Trazodone HCl (Desyrel) 50 mg QHS PO 05/17/19 21:00 05/17/19 19:56 Polyethylene Glycol (miraLAX) 17 gm BID PO 05/17/19 21:00 05/17/19 19:56 I have reviewed the current psychotropics carefully including drug interactions. Risk benefit ratio favors no change other than as noted in my dictated progress note. Diagnosis: Problems: (1) Anxiety disorder (2) Major neurocognitive disorder (3) Dementia in Alzheimer's disease with delusions (4) Dementia in Alzheimer's disease with depression (5) Dementia, vascular, with delusions (6) Dementia, vascular, with depression (7) Impulse control disorder (8) Alzheimer's dementia with behavioral disturbance CECILIO RECINOS MD May 17, 2019 22:06
[2019-05-18] MEDS: traZODone 50 MG TABLET. PO PRN (00:06)
[2019-05-18 05:36] VITALS: BP 164/85
[2019-05-18] MEDS: LEVOTHYROXINE 150 MCG TABLET PO SCH (05:56)
[2019-05-18] MEDS ORDERED: FLU VAX QS 2019-20 (36MOS+)/PF 0.5 ML SYRINGE. VAX IM ONE (06:30)
[2019-05-18 07:24] LABS: ALBUMIN 3.5 g/dL (3.4-5.0); CALCIUM 8.9 mg/dL (8.5-10.1); CREATININE 0.8 mg/dL (0.7-1.3); MAGNESIUM 2.4 mg/dL (1.8-2.4); POTASSIUM 4.5 mmol/L (3.5-5.1); TOTAL BILIRUBIN 0.4 mg/dL (0.2-1.0)
[2019-05-18 07:33] LABS: BASO % 1 % (0-3); EOS # 0.2 x10^3/uL (0.0-0.7); EOS % 8 % (0-3); HEMATOCRIT 29.7 % (39.0-53.0); HEMOGLOBIN 9.8 g/dL (13.0-17.5); LYMPH # 1.2 x10^3/uL (1.0-4.8); LYMPH % 43 % (24-48); MEAN CORPUSCULAR HEMOGLOBIN 31 pg (25-35); MEAN CORPUSCULAR HGB CONC 33 g/dL (31-37); MEAN CORPUSCULAR VOLUME 92 fL (79-100); MONO # 0.3 x10^3/uL (0.0-1.1); MONO % 11 % (0-9); NEUT % 36 % (31-73); PLATELET COUNT 283 x10^3/uL (140-400); RED BLOOD COUNT 3.22 x10^6/uL (4.30-5.70); RED CELL DISTRIBUTION WIDTH 16.4 % (11.5-14.5); WHITE BLOOD COUNT 2.7 x10^3/uL (4.0-11.0)
[2019-05-18 07:50] LABS: VAL ACID 41 mcg/mL (50-100)
[2019-05-18] MEDS ORDERED: ACETAMINOPHEN 325 MG TABLET PO PRN (08:00)
[2019-05-18] MEDS: FAMOTIDINE 20 MG TABLET PO SCH ×3 (09:56→20:18)
[2019-05-18] MEDS: QUEtiapine 25 MG TABLET. PO SCH ×3 (09:57→20:16)
[2019-05-18] MEDS: DOCUSATE SODIUM 100 MG CAPSULE PO SCH ×3 (09:57→20:17)
[2019-05-18] MEDS: FOLIC ACID 1 MG TABLET PO SCH ×2 (09:57→10:15)
[2019-05-18] MEDS: THIAMINE 100 MG TABLET. PO SCH ×2 (09:57→10:37)
[2019-05-18] MEDS: ASPIRIN 81 MG TAB.CHEW PO SCH ×2 (09:57→10:14)
[2019-05-18] MEDS: DIVALPROEX 125 MG CAP.SPRINK PO SCH ×2 (09:57→20:17)
[2019-05-18] MEDS: ACETAMINOPHEN 325 MG TABLET PO SCH ×3 (09:57→20:16)
[2019-05-18] MEDS: MELOXICAM 15 MG TABLET. PO SCH (09:57)
[2019-05-18] MEDS: SERTRALINE 50 MG TABLET. PO SCH (09:58)
[2019-05-18] MEDS: POLYETHYLENE GLYCOL 3350 17 GM PACKET. PO SCH ×3 (09:58→20:18)
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
[2019-05-18] MEDS: QUEtiapine 50 MG TABLET. PO SCH (14:54)
[2019-05-18 15:58] VITALS: BP 105/68
[2019-05-18 16:25] LABS: THYROID STIM HORMONE (TSH) 8.577 uIU/mL (0.358-3.740)
[2019-05-18 20:06] LABS: THYROXINE 6.2 ug/dL (4.5-12.0)
[2019-05-18] MEDS: traZODone 50 MG TABLET. PO SCH (20:16)
[2019-05-18] MEDS: MIRTAZAPINE 15 MG TABLET PO SCH (20:18)
--- NOTE | 2019-05-18 22:10 | PDOC ---
Exam Note: Sebastien Note: Please also refer to the separate dictated note~for this date of service dictated separately.~Patient seen individually. Discussed the patient with Nursing staff reviewed the chart.~Reviewed interim history and current functioning. Reviewed vital signs,~Labs/ Radiology~and current medications noted below. Continue current treatment with the changes noted in the dictated addendum note Assessment: Vital Signs/I&O: Vital Signs Date Time Temp Pulse Resp B/P (MAP) Pulse Ox O2 Delivery O2 Flow Rate FiO2 05/18/19 15:58 98.1 55 18 105/68 (80) 92 05/17/19 14:38 Room Air I & O 05/17/19 05/17/19 05/18/19 15:00 23:00 07:00 Intake Total 240 ml Balance 240 ml Labs: Laboratory Tests Test 05/18/19 06:51 White Blood Count 2.7 x10^3/uL (4.0-11.0) L Red Blood Count 3.22 x10^6/uL (4.30-5.70) L Hemoglobin 9.8 g/dL (13.0-17.5) L Hematocrit 29.7 % (39.0-53.0) L Mean Corpuscular Volume 92 fL (79-100) Mean Corpuscular Hemoglobin 31 pg (25-35) Mean Corpuscular Hemoglobin Concent 33 g/dL (31-37) Red Cell Distribution Width 16.4 % (11.5-14.5) H Platelet Count 283 x10^3/uL (140-400) Neutrophils (%) (Auto) 36 % (31-73) Lymphocytes (%) (Auto) 43 % (24-48) Monocytes (%) (Auto) 11 % (0-9) H Eosinophils (%) (Auto) 8 % (0-3) H Basophils (%) (Auto) 1 % (0-3) Neutrophils # (Auto) 1.0 x10^3uL (1.8-7.7) L Lymphocytes # (Auto) 1.2 x10^3/uL (1.0-4.8) Monocytes # (Auto) 0.3 x10^3/uL (0.0-1.1) Eosinophils # (Auto) 0.2 x10^3/uL (0.0-0.7) Basophils # (Auto) 0.0 x10^3/uL (0.0-0.2) Sodium Level 144 mmol/L (136-145) Potassium Level 4.5 mmol/L (3.5-5.1) Chloride Level 108 mmol/L (98-107) H Carbon Dioxide Level 29 mmol/L (21-32) Anion Gap 7 (6-14) Blood Urea Nitrogen 20 mg/dL (8-26) Creatinine 0.8 mg/dL (0.7-1.3) Estimated GFR (Cockcroft-Gault) 95.0 BUN/Creatinine Ratio 25 (6-20) H Glucose Level 92 mg/dL (70-99) Calcium Level 8.9 mg/dL (8.5-10.1) Magnesium Level 2.4 mg/dL (1.8-2.4) Iron Level 58 ug/dL (65-175) L Total Iron Binding Capacity 251 ug/dL (250-450) Iron Saturation 23 % (15-34) Total Bilirubin 0.4 mg/dL (0.2-1.0) Aspartate Amino Transferase (AST) 21 U/L (15-37) Alanine Aminotransferase (ALT) 39 U/L (16-63) Alkaline Phosphatase 75 U/L (46-116) Total Protein 7.0 g/dL (6.4-8.2) Albumin 3.5 g/dL (3.4-5.0) Albumin/Globulin Ratio 1.0 (1.0-1.7) Triglycerides Level 105 mg/dL (0-150) Cholesterol Level 175 mg/dL (0-200) LDL Cholesterol, Calculated 100 mg/dL (0-100) VLDL Cholesterol, Calculated 21 mg/dL (0-40) Non-HDL Cholesterol Calculated 121 mg/dL (0-129) HDL Cholesterol 54 mg/dL (40-60) Cholesterol/HDL Ratio 3.0 25-Hydroxy Vitamin D Total 18.1 ng/mL (30-100) L Thyroid Stimulating Hormone (TSH) 8.577 uIU/mL (0.358-3.740) Thyroxine (T4) 6.2 ug/dL (4.5-12.0) Total Triiodothyronine (TT3) 68 ng/dL (71-180) L Valproic Acid Level 41 mcg/mL (50-100) L Valproic Acid Last Dose Date 05/16/2019 Valproic Acid Last Dose Time 2100 Treponema pallidum Antibody Nonreactive (Nonreactive) Current Medications: Meds: Current Medications Medications (Trade) Dose Ordered Sig/Moo Route PRN Reason Start Time Stop Time Status Last Admin Dose Admin Levothyroxine Sodium (Synthroid) 150 mcg DAILY06 PO 05/18/19 06:00 05/18/19 05:56 Meloxicam (Mobic) 15 mg DAILY PO 05/18/19 09:00 05/18/19 09:58 Quetiapine Fumarate (SEROquel) 50 mg DAILY@1300 PO 05/18/19 13:00 05/18/19 14:54 Sertraline HCl (Zoloft) 50 mg DAILY PO 05/18/19 09:00 05/18/19 09:58 Divalproex Sodium (Depakote Sprinkles) 750 mg HS PO 05/18/19 21:00 05/18/19 20:18 I have reviewed the current psychotropics carefully including drug interactions. Risk benefit ratio favors no change other than as noted in my dictated progress note. Diagnosis: Problems: (1) Anxiety disorder (2) Major neurocognitive disorder (3) Dementia in Alzheimer's disease with delusions (4) Dementia, vascular, with delusions (5) Dementia in Alzheimer's disease with depression (6) Dementia, vascular, with depression (7) Impulse control disorder (8) Alzheimer's dementia with behavioral disturbance CECILIO RECINOS MD May 18, 2019 22:10
[2019-05-18 23:07] LABS: HEMOGLOBIN A1C 5.5 % (4.8-5.6)
[2019-05-19] MEDS: LEVOTHYROXINE 150 MCG TABLET PO SCH (05:26)
[2019-05-19 06:10] VITALS: BP 133/66
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
[2019-05-19] MEDS: POLYETHYLENE GLYCOL 3350 17 GM PACKET. PO SCH ×2 (10:08→21:54)
[2019-05-19] MEDS: MELOXICAM 15 MG TABLET. PO SCH (10:09)
[2019-05-19] MEDS: DIVALPROEX 125 MG CAP.SPRINK PO SCH ×2 (10:09→20:02)
[2019-05-19] MEDS: ACETAMINOPHEN 325 MG TABLET PO SCH ×2 (10:09→20:01)
[2019-05-19] MEDS: FAMOTIDINE 20 MG TABLET PO SCH ×2 (10:10→21:52)
[2019-05-19] MEDS: QUEtiapine 25 MG TABLET. PO SCH ×3 (10:10→20:01)
[2019-05-19] MEDS: ASPIRIN 81 MG TAB.CHEW PO SCH (10:10)
[2019-05-19] MEDS: FOLIC ACID 1 MG TABLET PO SCH (10:10)
[2019-05-19] MEDS: SERTRALINE 50 MG TABLET. PO SCH (10:11)
[2019-05-19] MEDS: DOCUSATE SODIUM 100 MG CAPSULE PO SCH ×2 (12:15→20:02)
[2019-05-19] MEDS: THIAMINE 100 MG TABLET. PO SCH (12:16)
[2019-05-19] MEDS: QUEtiapine 50 MG TABLET. PO SCH (13:07)
[2019-05-19 16:59] VITALS: BP 138/73
[2019-05-19] MEDS: traZODone 50 MG TABLET. PO SCH (20:01)
[2019-05-19] MEDS: MIRTAZAPINE 15 MG TABLET PO SCH (20:02)
--- NOTE | 2019-05-19 21:48 | PDOC ---
Exam Note: Sebastien Note: Please also refer to the separate dictated note~for this date of service dictated separately.~Patient seen individually. Discussed the patient with Nursing staff reviewed the chart.~Reviewed interim history and current functioning. Reviewed vital signs,~Labs/ Radiology~and current medications noted below. Continue current treatment with the changes noted in the dictated addendum note Assessment: Vital Signs/I&O: Vital Signs Date Time Temp Pulse Resp B/P (MAP) Pulse Ox O2 Delivery O2 Flow Rate FiO2 05/19/19 16:59 97.5 55 18 138/73 (94) 100 05/17/19 14:38 Room Air I & O 05/18/19 05/18/19 05/19/19 14:59 22:59 06:59 Intake Total 240 ml 200 ml Balance 240 ml 200 ml Current Medications: Meds: Current Medications Medications (Trade) Dose Ordered Sig/Moo Route PRN Reason Start Time Stop Time Status Last Admin Dose Admin Divalproex Sodium (Depakote Sprinkles) 500 mg DAILY PO 05/19/19 09:00 05/19/19 10:11 I have reviewed the current psychotropics carefully including drug interactions. Risk benefit ratio favors no change other than as noted in my dictated progress note. Diagnosis: Problems: (1) Anxiety disorder (2) Major neurocognitive disorder (3) Dementia in Alzheimer's disease with delusions (4) Dementia in Alzheimer's disease with depression (5) Dementia, vascular, with delusions (6) Dementia, vascular, with depression (7) Impulse control disorder (8) Alzheimer's dementia with behavioral disturbance CECILIO RECINOS MD May 19, 2019 21:48
[2019-05-19] MEDS: traZODone 50 MG TABLET. PO PRN (22:54)
[2019-05-20] MEDS: LEVOTHYROXINE 150 MCG TABLET PO SCH (05:01)
[2019-05-20 06:10] VITALS: BP 102/68
[2019-05-20] MEDS: QUEtiapine 25 MG TABLET. PO SCH ×3 (08:03→19:46)
[2019-05-20] MEDS: POLYETHYLENE GLYCOL 3350 17 GM PACKET. PO SCH ×2 (08:03→19:45)
[2019-05-20] MEDS: FAMOTIDINE 20 MG TABLET PO SCH ×2 (08:03→19:45)
[2019-05-20] MEDS: ACETAMINOPHEN 325 MG TABLET PO SCH ×2 (08:03→19:45)
[2019-05-20] MEDS: DOCUSATE SODIUM 100 MG CAPSULE PO SCH ×2 (08:03→19:45)
[2019-05-20] MEDS: THIAMINE 100 MG TABLET. PO SCH (08:04)
[2019-05-20] MEDS: ASPIRIN 81 MG TAB.CHEW PO SCH (08:05)
[2019-05-20] MEDS: FOLIC ACID 1 MG TABLET PO SCH (08:05)
[2019-05-20] MEDS: MELOXICAM 15 MG TABLET. PO SCH (08:05)
[2019-05-20] MEDS: SERTRALINE 50 MG TABLET. PO SCH (08:05)
[2019-05-20] MEDS: DIVALPROEX 125 MG CAP.SPRINK PO SCH ×2 (08:05→19:45)
[2019-05-20] MEDS: QUEtiapine 50 MG TABLET. PO SCH (13:00)
[2019-05-20 17:18] VITALS: BP 165/90
[2019-05-20] MEDS: traZODone 50 MG TABLET. PO SCH (19:45)
[2019-05-20] MEDS: MIRTAZAPINE 15 MG TABLET PO SCH (19:46)
--- NOTE | 2019-05-20 22:09 | PDOC ---
Exam Note: Sebastien Note: Please also refer to the separate dictated note~for this date of service dictated separately.~Patient seen individually. Discussed the patient with Nursing staff reviewed the chart.~Reviewed interim history and current functioning. Reviewed vital signs,~Labs/ Radiology~and current medications noted below. Continue current treatment with the changes noted in the dictated addendum note Assessment: Vital Signs/I&O: Vital Signs Date Time Temp Pulse Resp B/P (MAP) Pulse Ox O2 Delivery O2 Flow Rate FiO2 05/20/19 17:18 97.1 55 16 165/90 (115) 95 05/17/19 14:38 Room Air I & O 05/19/19 05/19/19 05/20/19 15:00 23:00 07:00 Intake Total 240 ml 0 ml 240 ml Balance 240 ml 0 ml 240 ml Current Medications: I have reviewed the current psychotropics carefully including drug interactions. Risk benefit ratio favors no change other than as noted in my dictated progress note. Diagnosis: Problems: (1) Anxiety disorder (2) Major neurocognitive disorder (3) Dementia in Alzheimer's disease with delusions (4) Dementia in Alzheimer's disease with depression (5) Dementia, vascular, with depression (6) Dementia, vascular, with delusions (7) Alzheimer's dementia with behavioral disturbance CECILIO RECINOS MD May 20, 2019 22:09
--- NOTE | 2019-05-20 22:54 | PN ---
DATE: 05/19/2019 PSYCHIATRIC PROGRESS NOTE This late entry, 05/19, covers elements not covered in my initial note. SUBJECTIVE: I met with the patient evening of 05/19. He slept 5 hours previous night. He has been agitated, combative. Takes meds in ice cream. He has been delusional, paranoid, very confused, making statements "it'll be bad when them mountain men get here." I tried to question him on this with no real response that was coherent. REVIEW OF SYSTEMS: No CV, , pulmonary, eye, ENT system symptoms on review. Reliability poor. MENTAL STATUS EXAM: Oriented to himself. Insight, judgment, recent and remote memory, attention, concentration, fund of knowledge poor, consistent with his diagnosis mentioned in my initial note. PLAN: No change from initial note. MAN Gladis RECINOS MD DR: EVETTE/abdirahman JOB#: [id number] / [id number]
[2019-05-21] MEDS: traZODone 50 MG TABLET. PO SCH (01:15)
--- NOTE | 2019-05-21 03:07 | PN ---
DATE: 05/18/2019 PSYCHIATRIC PROGRESS NOTE This late entry of 05/18 covers elements not covered in my initial note. SUBJECTIVE: I met with the patient on the evening of 05/18. The patient slept 2-3/4 hours previous night. He was staffed at treatment team meeting as well with the entire team, reviewed his diagnosis history. Appetite 75% to 100%. He remains confused, agitated, yelling, combative, resistive with cares. He remains on Depakote 500 mg b.i.d. with a level subtherapeutic at 41, and we will increase to 500 a.m., 750 at bedtime; repeat CBC, CMP, valproic acid level in 3 days. He has had a difficult day, "bad day" per nursing report. REVIEW OF SYSTEMS: No CV, , pulmonary, eye, ENT system symptoms on review. Reliability poor. MENTAL STATUS EXAMINATION: Oriented to himself. Insight, judgment, recent and remote memory, attention, concentration, fund of knowledge poor, consistent with his diagnosis mentioned in my initial note. IMPRESSION: Major neurocognitive disorder, Alzheimer, vascular with delusion, depression, behavioral disturbance; anxiety disorder, unspecified; impulse control disorder, unspecified. PLAN: Continue the patient on his current psychotropics with increase of Depakote, maintain Remeron 15 mg at bedtime, Seroquel at current dosage, Zoloft along with Zyprexa p.r.n. CECILIO RECINOS MD DR: EVETTE/abdirahman JOB#: [id number] / [id number]
[2019-05-21 05:08] VITALS: BP 183/98
[2019-05-21] MEDS: LEVOTHYROXINE 150 MCG TABLET PO SCH (05:13)
[2019-05-21 07:36] LABS: BASO # 0.1 x10^3/uL (0.0-0.2); BASO % 3 % (0-3); EOS # 0.2 x10^3/uL (0.0-0.7); EOS % 6 % (0-3); HEMATOCRIT 30.7 % (39.0-53.0); HEMOGLOBIN 9.9 g/dL (13.0-17.5); LYMPH # 1.2 x10^3/uL (1.0-4.8); LYMPH % 45 % (24-48); MEAN CORPUSCULAR HEMOGLOBIN 30 pg (25-35); MEAN CORPUSCULAR HGB CONC 32 g/dL (31-37); MEAN CORPUSCULAR VOLUME 93 fL (79-100); MONO # 0.4 x10^3/uL (0.0-1.1); MONO % 16 % (0-9); NEUT # 0.8 x10^3uL (1.8-7.7); NEUT % 30 % (31-73); PLATELET COUNT 273 x10^3/uL (140-400); RED BLOOD COUNT 3.31 x10^6/uL (4.30-5.70); RED CELL DISTRIBUTION WIDTH 16.4 % (11.5-14.5); WHITE BLOOD COUNT 2.7 x10^3/uL (4.0-11.0)
[2019-05-21 07:43] LABS: ALBUMIN 3.6 g/dL (3.4-5.0); ALBUMIN/GLOBULIN RATIO 1.2 (1.0-1.7); GFR 73.5; POTASSIUM 4.4 mmol/L (3.5-5.1); TOTAL BILIRUBIN 0.5 mg/dL (0.2-1.0); TOTAL PROTEIN 6.5 g/dL (6.4-8.2)
[2019-05-21 07:46] LABS: VAL ACID 64 mcg/mL (50-100)
[2019-05-21] MEDS: POLYETHYLENE GLYCOL 3350 17 GM PACKET. PO SCH ×2 (08:21→21:05)
[2019-05-21] MEDS: ASPIRIN 81 MG TAB.CHEW PO SCH (08:21)
[2019-05-21] MEDS: THIAMINE 100 MG TABLET. PO SCH (08:21)
[2019-05-21] MEDS: FOLIC ACID 1 MG TABLET PO SCH (08:21)
[2019-05-21] MEDS: MELOXICAM 15 MG TABLET. PO SCH (08:21)
[2019-05-21] MEDS: DOCUSATE SODIUM 100 MG CAPSULE PO SCH ×2 (08:21→21:04)
[2019-05-21] MEDS: QUEtiapine 25 MG TABLET. PO SCH ×3 (08:21→21:03)
[2019-05-21] MEDS: DIVALPROEX 125 MG CAP.SPRINK PO SCH ×2 (08:22→21:07)
[2019-05-21] MEDS: SERTRALINE 50 MG TABLET. PO SCH (08:22)
[2019-05-21] MEDS: FAMOTIDINE 20 MG TABLET PO SCH ×2 (08:22→21:03)
[2019-05-21] MEDS: ACETAMINOPHEN 325 MG TABLET PO SCH ×2 (08:22→21:03)
[2019-05-21] MEDS: CHOLECALCIFEROL (VITAMIN D3) 50,000 UNIT CAPSULE PO SCH (08:23)
[2019-05-21] MEDS: QUEtiapine 50 MG TABLET. PO SCH (13:00)
[2019-05-21 16:06] VITALS: BP 110/70
--- NOTE | 2019-05-21 20:01 | PN ---
DATE: 05/19/2019 PSYCHIATRIC PROGRESS NOTE This late entry 05/19/2019 covers elements not covered in my initial note. SUBJECTIVE: I met with the patient evening of 05/19/2019. DICTATION ENDS HERE MAN Gladis RECINOS MD DR: EVETTE/abdirahman JOB#: [id number] / [id number]
[2019-05-21] MEDS: MIRTAZAPINE 15 MG TABLET PO SCH (21:03)
[2019-05-21] MEDS: traZODone 50 MG TABLET. PO PRN (21:04)
--- NOTE | 2019-05-21 23:10 | PDOC ---
Exam Note: Sebastien Note: Please also refer to the separate dictated note~for this date of service dictated separately.~Patient seen individually. Discussed the patient with Nursing staff reviewed the chart.~Reviewed interim history and current functioning. Reviewed vital signs,~Labs/ Radiology~and current medications noted below. Continue current treatment with the changes noted in the dictated addendum note Assessment: Vital Signs/I&O: Vital Signs Date Time Temp Pulse Resp B/P (MAP) Pulse Ox O2 Delivery O2 Flow Rate FiO2 05/21/19 16:06 98.0 65 20 110/70 (83) 100 05/21/19 05:08 Room Air I & O 05/20/19 05/20/19 05/21/19 15:00 23:00 07:00 Intake Total 240 ml 240 ml 120 ml Balance 240 ml 240 ml 120 ml Labs: Laboratory Tests Test 05/21/19 06:44 White Blood Count 2.7 x10^3/uL (4.0-11.0) L Red Blood Count 3.31 x10^6/uL (4.30-5.70) L Hemoglobin 9.9 g/dL (13.0-17.5) L Hematocrit 30.7 % (39.0-53.0) L Mean Corpuscular Volume 93 fL (79-100) Mean Corpuscular Hemoglobin 30 pg (25-35) Mean Corpuscular Hemoglobin Concent 32 g/dL (31-37) Red Cell Distribution Width 16.4 % (11.5-14.5) H Platelet Count 273 x10^3/uL (140-400) Neutrophils (%) (Auto) 30 % (31-73) L Lymphocytes (%) (Auto) 45 % (24-48) Monocytes (%) (Auto) 16 % (0-9) H Eosinophils (%) (Auto) 6 % (0-3) H Basophils (%) (Auto) 3 % (0-3) Neutrophils # (Auto) 0.8 x10^3uL (1.8-7.7) L Lymphocytes # (Auto) 1.2 x10^3/uL (1.0-4.8) Monocytes # (Auto) 0.4 x10^3/uL (0.0-1.1) Eosinophils # (Auto) 0.2 x10^3/uL (0.0-0.7) Basophils # (Auto) 0.1 x10^3/uL (0.0-0.2) Sodium Level 145 mmol/L (136-145) Potassium Level 4.4 mmol/L (3.5-5.1) Chloride Level 107 mmol/L (98-107) Carbon Dioxide Level 29 mmol/L (21-32) Anion Gap 9 (6-14) Blood Urea Nitrogen 34 mg/dL (8-26) H Creatinine 1.0 mg/dL (0.7-1.3) Estimated GFR (Cockcroft-Gault) 73.5 BUN/Creatinine Ratio 34 (6-20) H Glucose Level 91 mg/dL (70-99) Calcium Level 9.0 mg/dL (8.5-10.1) Total Bilirubin 0.5 mg/dL (0.2-1.0) Aspartate Amino Transferase (AST) 16 U/L (15-37) Alanine Aminotransferase (ALT) 33 U/L (16-63) Alkaline Phosphatase 73 U/L (46-116) Total Protein 6.5 g/dL (6.4-8.2) Albumin 3.6 g/dL (3.4-5.0) Albumin/Globulin Ratio 1.2 (1.0-1.7) Valproic Acid Level 64 mcg/mL (50-100) Valproic Acid Last Dose Date 05/21/19 Valproic Acid Last Dose Time 2100 Current Medications: Meds: Current Medications Medications (Trade) Dose Ordered Sig/Moo Route PRN Reason Start Time Stop Time Status Last Admin Dose Admin Vitamin D (Vitamin D3) 50,000 unit WEEKLY PO 05/21/19 09:00 05/21/19 08:23 I have reviewed the current psychotropics carefully including drug interactions. Risk benefit ratio favors no change other than as noted in my dictated progress note. Diagnosis: Problems: (1) Medical clearance for psychiatric admission (2) Anxiety disorder (3) Major neurocognitive disorder (4) Dementia in Alzheimer's disease with delusions (5) Dementia in Alzheimer's disease with depression (6) Dementia, vascular, with delusions (7) Dementia, vascular, with depression (8) Impulse control disorder (9) Alzheimer's dementia with behavioral disturbance (10) Alcohol dependency CEICLIO RECINOS MD May 21, 2019 23:10
--- NOTE | 2019-05-22 02:05 | PN ---
DATE: 05/20/2019 PSYCHIATRIC PROGRESS NOTE This late entry 05/20/2019 covers elements not covered in my initial note. SUBJECTIVE: I met with the patient evening of 05/20/2019. Per HARVEY Erazo, the patient slept 5-1/2 hours previous night. He took his meds with breakfast, then took a shower, then was combative, extremely agitated. His called around 4:00 p.m. He is quite disorganized. In the evening as I met with him, he was walking around the hallway grabbing things, trying to pull on the railings on the wall and the banister believing it was the door, difficult to redirect. REVIEW OF SYSTEMS: No CV, , pulmonary, eye, ENT system symptoms on review. Reliability poor. MENTAL STATUS EXAM: Oriented to himself. Insight, judgment, recent and remote memory, attention, concentration, fund of knowledge poor, consistent with his diagnosis mentioned in my initial note. IMPRESSION: Major neurocognitive disorder, Alzheimer, vascular with delusion, depression, behavioral disturbance; anxiety disorder, unspecified; impulse control disorder, unspecified. PLAN: Continue Depakote Sprinkles at current dosage, level is subtherapeutic at 41. We may need to adjust this further, but we have increased it to 500 mg a.m., 750 at bedtime with labs and valproic acid level due on 05/21/2019. Maintain Remeron 15 mg at bedtime, Seroquel 25 mg t.i.d. 50 mg daily, Zoloft 50 mg a day, Zyprexa p.r.n. MAN Gladis RECINOS MD DR: EVETTE/abdirahman JOB#: [id number] / [id number]
[2019-05-22] MEDS: LEVOTHYROXINE 150 MCG TABLET PO SCH (05:47)
[2019-05-22 06:35] VITALS: BP 140/84
[2019-05-22] MEDS: POLYETHYLENE GLYCOL 3350 17 GM PACKET. PO SCH ×2 (08:17→20:26)
[2019-05-22] MEDS: QUEtiapine 25 MG TABLET. PO SCH ×3 (08:17→20:26)
[2019-05-22] MEDS: FOLIC ACID 1 MG TABLET PO SCH (08:17)
[2019-05-22] MEDS: THIAMINE 100 MG TABLET. PO SCH (08:17)
[2019-05-22] MEDS: DOCUSATE SODIUM 100 MG CAPSULE PO SCH ×2 (08:17→20:26)
[2019-05-22] MEDS: FAMOTIDINE 20 MG TABLET PO SCH ×2 (08:17→20:26)
[2019-05-22] MEDS: SERTRALINE 50 MG TABLET. PO SCH (08:17)
[2019-05-22] MEDS: MELOXICAM 15 MG TABLET. PO SCH (08:17)
[2019-05-22] MEDS: ASPIRIN 81 MG TAB.CHEW PO SCH (08:18)
[2019-05-22] MEDS: DIVALPROEX 125 MG CAP.SPRINK PO SCH ×2 (08:18→20:26)
[2019-05-22] MEDS: ACETAMINOPHEN 325 MG TABLET PO SCH ×2 (08:19→20:26)
[2019-05-22] MEDS: QUEtiapine 50 MG TABLET. PO SCH (13:00)
[2019-05-22 16:04] VITALS: BP 138/86
[2019-05-22] MEDS: MIRTAZAPINE 15 MG TABLET PO SCH (20:26)
[2019-05-22] MEDS: traZODone 50 MG TABLET. PO SCH (20:26)
--- NOTE | 2019-05-22 21:44 | PDOC ---
Exam Note: Sebastien Note: Please also refer to the separate dictated note~for this date of service dictated separately.~Patient seen individually. Discussed the patient with Nursing staff reviewed the chart.~Reviewed interim history and current functioning. Reviewed vital signs,~Labs/ Radiology~and current medications noted below. Continue current treatment with the changes noted in the dictated addendum note Assessment: Vital Signs/I&O: Vital Signs Date Time Temp Pulse Resp B/P (MAP) Pulse Ox O2 Delivery O2 Flow Rate FiO2 05/22/19 16:04 98.3 55 20 138/86 (103) 100 05/21/19 05:08 Room Air I & O 05/21/19 05/21/19 05/22/19 15:00 23:00 07:00 Intake Total 600 ml 240 ml Balance 600 ml 240 ml Current Medications: I have reviewed the current psychotropics carefully including drug interactions. Risk benefit ratio favors no change other than as noted in my dictated progress note. Diagnosis: Problems: (1) Major neurocognitive disorder (2) Anxiety disorder (3) Dementia in Alzheimer's disease with delusions (4) Dementia in Alzheimer's disease with depression (5) Dementia, vascular, with delusions (6) Dementia, vascular, with depression (7) Impulse control disorder (8) Alzheimer's dementia with behavioral disturbance CECILIO RECINOS MD May 22, 2019 21:44
[2019-05-22] MEDS: traZODone 50 MG TABLET. PO PRN (23:15)
[2019-05-23] MEDS: LEVOTHYROXINE 150 MCG TABLET PO SCH (04:59)
[2019-05-23 06:16] VITALS: BP 143/84
[2019-05-23] MEDS: ASPIRIN 81 MG TAB.CHEW PO SCH (07:43)
[2019-05-23] MEDS: THIAMINE 100 MG TABLET. PO SCH (07:44)
[2019-05-23] MEDS: DIVALPROEX 125 MG CAP.SPRINK PO SCH ×2 (07:44→19:46)
[2019-05-23] MEDS: FAMOTIDINE 20 MG TABLET PO SCH ×2 (07:44→19:46)
[2019-05-23] MEDS: MELOXICAM 15 MG TABLET. PO SCH (07:44)
[2019-05-23] MEDS: DOCUSATE SODIUM 100 MG CAPSULE PO SCH ×2 (07:44→19:46)
[2019-05-23] MEDS: ACETAMINOPHEN 325 MG TABLET PO SCH ×2 (07:44→19:47)
[2019-05-23] MEDS: FOLIC ACID 1 MG TABLET PO SCH (07:44)
[2019-05-23] MEDS: QUEtiapine 25 MG TABLET. PO SCH ×3 (07:44→19:46)
[2019-05-23] MEDS: POLYETHYLENE GLYCOL 3350 17 GM PACKET. PO SCH ×2 (07:44→19:46)
[2019-05-23] MEDS: SERTRALINE 25 MG TABLET. PO SCH (07:47)
[2019-05-23] MEDS: QUEtiapine 50 MG TABLET. PO SCH (12:28)
[2019-05-23] MEDS ORDERED: FLU VAX QS 2019-20 (36MOS+)/PF 0.5 ML SYRINGE. VAX IM ONE (12:45)
[2019-05-23 16:18] VITALS: BP 109/71
[2019-05-23] MEDS: MIRTAZAPINE 15 MG TABLET PO SCH (19:46)
[2019-05-23] MEDS: traZODone 50 MG TABLET. PO SCH (19:46)
--- NOTE | 2019-05-23 21:46 | PDOC ---
Exam Note: Sebastien Note: Please also refer to the separate dictated note~for this date of service dictated separately.~Patient seen individually. Discussed the patient with Nursing staff reviewed the chart.~Reviewed interim history and current functioning. Reviewed vital signs,~Labs/ Radiology~and current medications noted below. Continue current treatment with the changes noted in the dictated addendum note Assessment: Vital Signs/I&O: Vital Signs Date Time Temp Pulse Resp B/P (MAP) Pulse Ox O2 Delivery O2 Flow Rate FiO2 05/23/19 16:18 97.7 55 16 109/71 (84) 99 05/21/19 05:08 Room Air I & O 05/22/19 05/22/19 05/23/19 15:00 23:00 07:00 Intake Total 240 ml 240 ml Balance 240 ml 240 ml Current Medications: Meds: Current Medications Medications (Trade) Dose Ordered Sig/Moo Route PRN Reason Start Time Stop Time Status Last Admin Dose Admin Sertraline HCl (Zoloft) 75 mg DAILY PO 05/23/19 09:00 05/23/19 07:47 I have reviewed the current psychotropics carefully including drug interactions. Risk benefit ratio favors no change other than as noted in my dictated progress note. Diagnosis: Problems: (1) Anxiety disorder (2) Major neurocognitive disorder (3) Dementia in Alzheimer's disease with delusions (4) Dementia in Alzheimer's disease with depression (5) Dementia, vascular, with delusions (6) Dementia, vascular, with depression (7) Impulse control disorder (8) Alzheimer's dementia with behavioral disturbance CECILIO RECINOS MD May 23, 2019 21:46
[2019-05-23] MEDS: traZODone 50 MG TABLET. PO PRN (22:03)
--- NOTE | 2019-05-24 03:44 | PN ---
DATE: 05/21/2019 PSYCHIATRIC PROGRESS NOTE This late entry 05/21/2019 covers elements not covered in my initial note. SUBJECTIVE: I met with the patient in the evening of 05/21/2019. The patient remains confused, slept 7-3/4 hours previous night. He has not been combative, calm, medication compliant with ice cream, later urinated in the hallway, agitated and yelling at staff while assisting him with cares. Irritable loud at times. TSH elevated. Dr. Posada is repeating it. REVIEW OF SYSTEMS: No CV, , pulmonary, eye, ENT system symptoms on review. Reliability poor. MENTAL STATUS EXAM: Oriented to himself. Insight, judgment, recent and remote memory, attention, concentration, fund of knowledge poor consistent with his diagnosis mentioned in my initial note. PLAN: No change from initial note. MAN Gladis RECINOS MD DR: EVETTE/abdirahman JOB#: [id number] / [id number]
--- NOTE | 2019-05-24 04:25 | PN ---
DATE: 05/22/2019 PSYCHIATRIC PROGRESS NOTE This late entry 05/22/2019 covers the elements not covered in my initial note. SUBJECTIVE: I met with the patient in the evening. The patient slept 7-1/4 hours previous night. He has been confused, wandering, agitated at times. On Thursday, he urinated in the hallway. REVIEW OF SYSTEMS: No CV, , pulmonary, eye, ENT system symptoms on review. Reliability is poor. MENTAL STATUS EXAM: Oriented to himself. Insight, judgment, recent and remote memory, attention, concentration, fund of knowledge poor, consistent with his diagnosis mentioned in my initial note. PLAN: No change from initial note, but increase Zoloft from 50 to 75 mg a day after he has been on 50 for 3 days. Rest unchanged. MAN Gladis RECINOS MD DR: EVETTE/abdirahman JOB#: [id number] / [id number]
[2019-05-24] MEDS: LEVOTHYROXINE 150 MCG TABLET PO SCH (05:33)
[2019-05-24 06:16] VITALS: BP 110/74
[2019-05-24] MEDS ORDERED: FLU VAX QS 2019-20 (36MOS+)/PF 0.5 ML SYRINGE. VAX IM ONE (09:00)
[2019-05-24] MEDS: DIVALPROEX 125 MG CAP.SPRINK PO SCH ×2 (09:06→19:47)
[2019-05-24] MEDS: QUEtiapine 25 MG TABLET. PO SCH ×3 (09:06→19:47)
[2019-05-24] MEDS: FAMOTIDINE 20 MG TABLET PO SCH ×2 (09:06→19:46)
[2019-05-24] MEDS: SERTRALINE 25 MG TABLET. PO SCH (09:06)
[2019-05-24] MEDS: POLYETHYLENE GLYCOL 3350 17 GM PACKET. PO SCH ×2 (09:07→19:48)
[2019-05-24] MEDS: ASPIRIN 81 MG TAB.CHEW PO SCH (09:07)
[2019-05-24] MEDS: MELOXICAM 15 MG TABLET. PO SCH (09:07)
[2019-05-24] MEDS: DOCUSATE SODIUM 100 MG CAPSULE PO SCH ×2 (09:07→19:47)
[2019-05-24] MEDS: ACETAMINOPHEN 325 MG TABLET PO SCH ×2 (09:09→19:47)
[2019-05-24] MEDS: FOLIC ACID 1 MG TABLET PO SCH (09:25)
[2019-05-24] MEDS: THIAMINE 100 MG TABLET. PO SCH (09:26)
[2019-05-24] MEDS: QUEtiapine 50 MG TABLET. PO SCH (13:00)
[2019-05-24 17:03] VITALS: BP 114/74
[2019-05-24] MEDS: MIRTAZAPINE 15 MG TABLET PO SCH (19:46)
[2019-05-24] MEDS: traZODone 50 MG TABLET. PO SCH (19:47)
[2019-05-24] MEDS: traZODone 50 MG TABLET. PO PRN (21:13)
--- NOTE | 2019-05-24 22:11 | PDOC ---
Exam Note: Sebastien Note: Please also refer to the separate dictated note~for this date of service dictated separately.~Patient seen individually. Discussed the patient with Nursing staff reviewed the chart.~Reviewed interim history and current functioning. Reviewed vital signs,~Labs/ Radiology~and current medications noted below. Continue current treatment with the changes noted in the dictated addendum note Assessment: Vital Signs/I&O: Vital Signs Date Time Temp Pulse Resp B/P (MAP) Pulse Ox O2 Delivery O2 Flow Rate FiO2 05/24/19 17:03 97.9 59 16 114/74 (87) 100 05/24/19 06:16 Room Air I & O 05/23/19 05/23/19 05/24/19 15:00 23:00 07:00 Intake Total 360 ml 600 ml 420 ml Balance 360 ml 600 ml 420 ml Current Medications: Meds: Current Medications Medications (Trade) Dose Ordered Sig/Moo Route PRN Reason Start Time Stop Time Status Last Admin Dose Admin Influenza Virus Vaccine Quadrival (Afluria Quad 2019-20 (3yr Up) Syringe) 0.5 ml ONCE ONCE VAX IM 05/24/19 09:00 05/24/19 09:01 DC 05/23/19 23:15 I have reviewed the current psychotropics carefully including drug interactions. Risk benefit ratio favors no change other than as noted in my dictated progress note. Diagnosis: Problems: (1) Anxiety disorder (2) Major neurocognitive disorder (3) Dementia in Alzheimer's disease with delusions (4) Dementia in Alzheimer's disease with depression (5) Dementia, vascular, with delusions (6) Dementia, vascular, with depression (7) Impulse control disorder (8) Alzheimer's dementia with behavioral disturbance CECILIO RECINOS MD May 24, 2019 22:11
--- NOTE | 2019-05-25 03:32 | PN ---
DATE: 05/23/2019 PSYCHIATRIC PROGRESS NOTE This late entry 05/23/2019 covers elements not covered in my initial note. SUBJECTIVE: I met with the patient evening of 05/23/2019. The patient slept 4-1/2 hours previous night. He has been confused, combative with cares, got agitated around lunchtime. Seroquel was given around noon, which seemed to help. REVIEW OF SYSTEMS: No CV, , pulmonary, eye, ENT system symptoms on review. Reliability poor. MENTAL STATUS EXAM: Oriented to himself. Insight, judgment, recent and remote memory, attention, concentration, fund of knowledge poor, consistent with his diagnosis mentioned in my initial note. PLAN: No change from initial note, and we have increased the Zoloft. We will make further adjustments as indicated. MAN Gladis RECINOS MD DR: EVETTE/abdirahman JOB#: [id number] / [id number]
[2019-05-25] MEDS: LEVOTHYROXINE 150 MCG TABLET PO SCH (05:18)
[2019-05-25 06:28] VITALS: BP 135/85
[2019-05-25] MEDS: ASPIRIN 81 MG TAB.CHEW PO SCH (07:51)
[2019-05-25] MEDS: DOCUSATE SODIUM 100 MG CAPSULE PO SCH ×2 (07:51→20:40)
[2019-05-25] MEDS: SERTRALINE 25 MG TABLET. PO SCH (07:52)
[2019-05-25] MEDS: THIAMINE 100 MG TABLET. PO SCH (07:52)
[2019-05-25] MEDS: QUEtiapine 25 MG TABLET. PO SCH ×3 (07:53→20:40)
[2019-05-25] MEDS: MELOXICAM 15 MG TABLET. PO SCH (07:53)
[2019-05-25] MEDS: POLYETHYLENE GLYCOL 3350 17 GM PACKET. PO SCH ×2 (07:53→20:39)
[2019-05-25] MEDS: DIVALPROEX 125 MG CAP.SPRINK PO SCH ×2 (07:53→20:39)
[2019-05-25] MEDS: FOLIC ACID 1 MG TABLET PO SCH (07:53)
[2019-05-25] MEDS: FAMOTIDINE 20 MG TABLET PO SCH ×2 (07:53→20:40)
[2019-05-25] MEDS: ACETAMINOPHEN 325 MG TABLET PO SCH ×2 (07:54→20:40)
[2019-05-25] MEDS: QUEtiapine 50 MG TABLET. PO SCH (13:03)
[2019-05-25 17:21] VITALS: BP 101/62
[2019-05-25] MEDS: MIRTAZAPINE 15 MG TABLET PO SCH (20:40)
[2019-05-25] MEDS: traZODone 50 MG TABLET. PO SCH (20:40)
--- NOTE | 2019-05-25 21:55 | PDOC ---
Exam Note: Sebastien Note: Please also refer to the separate dictated note~for this date of service dictated separately.~Patient seen individually. Discussed the patient with Nursing staff reviewed the chart.~Reviewed interim history and current functioning. Reviewed vital signs,~Labs/ Radiology~and current medications noted below. Continue current treatment with the changes noted in the dictated addendum note Assessment: Vital Signs/I&O: Vital Signs Date Time Temp Pulse Resp B/P (MAP) Pulse Ox O2 Delivery O2 Flow Rate FiO2 05/25/19 17:21 97.1 55 20 101/62 (75) 100 05/25/19 06:28 Room Air I & O 05/24/19 05/24/19 05/25/19 15:00 23:00 07:00 Intake Total 600 ml 360 ml 240 ml Balance 600 ml 360 ml 240 ml Current Medications: I have reviewed the current psychotropics carefully including drug interactions. Risk benefit ratio favors no change other than as noted in my dictated progress note. Diagnosis: Problems: (1) Anxiety disorder (2) Major neurocognitive disorder (3) Dementia in Alzheimer's disease with delusions (4) Dementia in Alzheimer's disease with depression (5) Dementia, vascular, with delusions (6) Dementia, vascular, with depression (7) Impulse control disorder (8) Alzheimer's dementia with behavioral disturbance CECILIO RECINOS MD May 25, 2019 21:55
--- NOTE | 2019-05-26 03:08 | PN ---
DATE: 05/24/2019 PSYCHIATRIC PROGRESS NOTE This late entry 05/24/2019 covers elements not covered in my initial note. SUBJECTIVE: I met with the patient evening of 05/24/2019. The patient slept 4-1/2 hours previous night. He had a great difficult time during the shower, received Zyprexa 2.5 mg 20 minutes before shower, did not seem to help much. He was hitting, yelling with cares, using profanities, bizarre in his verbalizations, disconnected, "did you win." Do you have the money." REVIEW OF SYSTEMS: No CV, , pulmonary, eye, ENT system symptoms on review. Reliability poor. Gait somewhat unsteady shuffling at times. MENTAL STATUS EXAMINATION: Oriented to himself. Insight, judgment, recent and remote memory, attention, concentration, fund of knowledge poor, consistent with his diagnosis mentioned in my initial note. PLAN: No change from initial note. CECILIO RECINOS MD DR: EVETTE/abdirahman JOB#: [id number] / [id number]
[2019-05-26] MEDS: LEVOTHYROXINE 150 MCG TABLET PO SCH (06:06)
[2019-05-26 06:37] VITALS: BP 151/80
[2019-05-26] MEDS: MELOXICAM 15 MG TABLET. PO SCH (08:39)
[2019-05-26] MEDS: FAMOTIDINE 20 MG TABLET PO SCH ×2 (08:39→21:14)
[2019-05-26] MEDS: SERTRALINE 25 MG TABLET. PO SCH (08:39)
[2019-05-26] MEDS: DOCUSATE SODIUM 100 MG CAPSULE PO SCH ×2 (08:39→21:14)
[2019-05-26] MEDS: ASPIRIN 81 MG TAB.CHEW PO SCH (08:39)
[2019-05-26] MEDS: THIAMINE 100 MG TABLET. PO SCH (08:39)
[2019-05-26] MEDS: QUEtiapine 25 MG TABLET. PO SCH ×3 (08:39→21:14)
[2019-05-26] MEDS: ACETAMINOPHEN 325 MG TABLET PO SCH ×2 (08:39→21:13)
[2019-05-26] MEDS: POLYETHYLENE GLYCOL 3350 17 GM PACKET. PO SCH ×2 (08:40→21:13)
[2019-05-26] MEDS: FOLIC ACID 1 MG TABLET PO SCH (08:40)
[2019-05-26] MEDS: DIVALPROEX 125 MG CAP.SPRINK PO SCH ×2 (08:40→21:14)
[2019-05-26] MEDS: QUEtiapine 50 MG TABLET. PO SCH (13:37)
[2019-05-26 15:53] VITALS: BP 86/52
[2019-05-26] MEDS: traZODone 50 MG TABLET. PO SCH (21:14)
[2019-05-26] MEDS: MIRTAZAPINE 15 MG TABLET PO SCH (21:14)
--- NOTE | 2019-05-26 21:59 | PDOC ---
Exam Note: Sebastien Note: Please also refer to the separate dictated note~for this date of service dictated separately.~Patient seen individually. Discussed the patient with Nursing staff reviewed the chart.~Reviewed interim history and current functioning. Reviewed vital signs,~Labs/ Radiology~and current medications noted below. Continue current treatment with the changes noted in the dictated addendum note Assessment: Vital Signs/I&O: Vital Signs Date Time Temp Pulse Resp B/P (MAP) Pulse Ox O2 Delivery O2 Flow Rate FiO2 05/26/19 15:53 97.6 61 18 86/52 (63) 99 05/25/19 06:28 Room Air I & O 05/25/19 05/25/19 05/26/19 15:00 23:00 07:00 Intake Total 600 ml 240 ml 240 ml Balance 600 ml 240 ml 240 ml Current Medications: Meds: Current Medications Medications (Trade) Dose Ordered Sig/Moo Route PRN Reason Start Time Stop Time Status Last Admin Dose Admin Quetiapine Fumarate (SEROquel) 37.5 mg TID@0900,1700,2100 PO 05/26/19 21:00 05/26/19 21:14 I have reviewed the current psychotropics carefully including drug interactions. Risk benefit ratio favors no change other than as noted in my dictated progress note. Diagnosis: Problems: (1) Anxiety disorder (2) Major neurocognitive disorder (3) Dementia in Alzheimer's disease with delusions (4) Dementia in Alzheimer's disease with depression (5) Dementia, vascular, with delusions (6) Dementia, vascular, with depression (7) Impulse control disorder (8) Alzheimer's dementia with behavioral disturbance CECILIO RECINOS MD May 26, 2019 21:59
[2019-05-27 05:18] VITALS: BP 145/82
[2019-05-27] MEDS: LEVOTHYROXINE 150 MCG TABLET PO SCH (05:31)
[2019-05-27 07:11] LABS: BASO # 0.1 x10^3/uL (0.0-0.2); BASO % 3 % (0-3); EOS # 0.1 x10^3/uL (0.0-0.7); EOS % 4 % (0-3); HEMOGLOBIN 10.3 g/dL (13.0-17.5); LYMPH # 1.1 x10^3/uL (1.0-4.8); LYMPH % 42 % (24-48); MEAN CORPUSCULAR HEMOGLOBIN 30 pg (25-35); MEAN CORPUSCULAR HGB CONC 32 g/dL (31-37); MEAN CORPUSCULAR VOLUME 93 fL (79-100); MONO # 0.5 x10^3/uL (0.0-1.1); MONO % 20 % (0-9); NEUT # 0.8 x10^3uL (1.8-7.7); NEUT % 31 % (31-73); PLATELET COUNT 264 x10^3/uL (140-400); RED BLOOD COUNT 3.44 x10^6/uL (4.30-5.70); RED CELL DISTRIBUTION WIDTH 16.5 % (11.5-14.5); WHITE BLOOD COUNT 2.5 x10^3/uL (4.0-11.0)
[2019-05-27 07:27] LABS: ALBUMIN 3.9 g/dL (3.4-5.0); ALBUMIN/GLOBULIN RATIO 1.1 (1.0-1.7); CALCIUM 9.4 mg/dL (8.5-10.1); CREATININE 1.2 mg/dL (0.7-1.3); GFR 59.5; POTASSIUM 5.3 mmol/L (3.5-5.1); TOTAL BILIRUBIN 0.4 mg/dL (0.2-1.0); TOTAL PROTEIN 7.3 g/dL (6.4-8.2)
[2019-05-27] MEDS: DOCUSATE SODIUM 100 MG CAPSULE PO SCH ×2 (08:11→20:42)
[2019-05-27] MEDS: ASPIRIN 81 MG TAB.CHEW PO SCH (08:11)
[2019-05-27] MEDS: DIVALPROEX 125 MG CAP.SPRINK PO SCH ×2 (08:11→20:42)
[2019-05-27] MEDS: FOLIC ACID 1 MG TABLET PO SCH (08:12)
[2019-05-27] MEDS: MELOXICAM 15 MG TABLET. PO SCH (08:12)
[2019-05-27] MEDS: QUEtiapine 25 MG TABLET. PO SCH ×3 (08:12→20:44)
[2019-05-27] MEDS: FAMOTIDINE 20 MG TABLET PO SCH ×2 (08:12→20:42)
[2019-05-27] MEDS: POLYETHYLENE GLYCOL 3350 17 GM PACKET. PO SCH ×2 (08:12→20:42)
[2019-05-27] MEDS: ACETAMINOPHEN 325 MG TABLET PO SCH ×2 (08:13→20:42)
[2019-05-27] MEDS: THIAMINE 100 MG TABLET. PO SCH (08:13)
[2019-05-27] MEDS: SERTRALINE 25 MG TABLET. PO SCH (08:13)
[2019-05-27] MEDS: QUEtiapine 50 MG TABLET. PO SCH (13:35)
[2019-05-27 16:32] VITALS: BP 117/77
[2019-05-27 17:07] LABS: THYROXINE 6.3 ug/dL (4.5-12.0)
[2019-05-27] MEDS: MIRTAZAPINE 15 MG TABLET PO SCH (20:42)
[2019-05-27] MEDS: traZODone 50 MG TABLET. PO SCH (20:44)
--- NOTE | 2019-05-27 21:49 | PDOC ---
Exam Note: Sebastien Note: Please also refer to the separate dictated note~for this date of service dictated separately.~Patient seen individually. Discussed the patient with Nursing staff reviewed the chart.~Reviewed interim history and current functioning. Reviewed vital signs,~Labs/ Radiology~and current medications noted below. Continue current treatment with the changes noted in the dictated addendum note Assessment: Vital Signs/I&O: Vital Signs Date Time Temp Pulse Resp B/P (MAP) Pulse Ox O2 Delivery O2 Flow Rate FiO2 05/27/19 16:32 97.9 55 16 117/77 (90) 94 05/25/19 06:28 Room Air I & O 05/26/19 05/26/19 05/27/19 14:59 22:59 06:59 Intake Total 1080 ml 480 ml 120 ml Balance 1080 ml 480 ml 120 ml Labs: Laboratory Tests Test 05/27/19 06:50 White Blood Count 2.5 x10^3/uL (4.0-11.0) L Red Blood Count 3.44 x10^6/uL (4.30-5.70) L Hemoglobin 10.3 g/dL (13.0-17.5) L Hematocrit 32.0 % (39.0-53.0) L Mean Corpuscular Volume 93 fL (79-100) Mean Corpuscular Hemoglobin 30 pg (25-35) Mean Corpuscular Hemoglobin Concent 32 g/dL (31-37) Red Cell Distribution Width 16.5 % (11.5-14.5) H Platelet Count 264 x10^3/uL (140-400) Neutrophils (%) (Auto) 31 % (31-73) Lymphocytes (%) (Auto) 42 % (24-48) Monocytes (%) (Auto) 20 % (0-9) H Eosinophils (%) (Auto) 4 % (0-3) H Basophils (%) (Auto) 3 % (0-3) Neutrophils # (Auto) 0.8 x10^3uL (1.8-7.7) L Lymphocytes # (Auto) 1.1 x10^3/uL (1.0-4.8) Monocytes # (Auto) 0.5 x10^3/uL (0.0-1.1) Eosinophils # (Auto) 0.1 x10^3/uL (0.0-0.7) Basophils # (Auto) 0.1 x10^3/uL (0.0-0.2) Sodium Level 142 mmol/L (136-145) Potassium Level 5.3 mmol/L (3.5-5.1) H Chloride Level 106 mmol/L (98-107) Carbon Dioxide Level 29 mmol/L (21-32) Anion Gap 7 (6-14) Blood Urea Nitrogen 55 mg/dL (8-26) H Creatinine 1.2 mg/dL (0.7-1.3) Estimated GFR (Cockcroft-Gault) 59.5 BUN/Creatinine Ratio 46 (6-20) H Glucose Level 74 mg/dL (70-99) Calcium Level 9.4 mg/dL (8.5-10.1) Total Bilirubin 0.4 mg/dL (0.2-1.0) Aspartate Amino Transferase (AST) 22 U/L (15-37) Alanine Aminotransferase (ALT) 34 U/L (16-63) Alkaline Phosphatase 71 U/L (46-116) Total Protein 7.3 g/dL (6.4-8.2) Albumin 3.9 g/dL (3.4-5.0) Albumin/Globulin Ratio 1.1 (1.0-1.7) Free Thyroxine 0.94 ng/dL (0.76-1.46) Thyroxine (T4) 6.3 ug/dL (4.5-12.0) Total Triiodothyronine (TT3) 56 ng/dL (71-180) L Current Medications: I have reviewed the current psychotropics carefully including drug interactions. Risk benefit ratio favors no change other than as noted in my dictated progress note. Diagnosis: Problems: (1) Anxiety disorder (2) Major neurocognitive disorder (3) Dementia in Alzheimer's disease with delusions (4) Dementia in Alzheimer's disease with depression (5) Dementia, vascular, with delusions (6) Dementia, vascular, with depression (7) Impulse control disorder (8) Alzheimer's dementia with behavioral disturbance CECILIO RECINOS MD May 27, 2019 21:49
--- NOTE | 2019-05-27 22:18 | PN ---
DATE: 05/25/2019 PSYCHIATRIC PROGRESS NOTE This late entry 05/25/2019 covers elements not covered in my initial note. SUBJECTIVE: I met with the patient evening of 05/25/2019. The patient slept 4-1/4 hours according to information from HARVEY Sol. He has had a better day, wandering, went into the room of another female patient, got agitated after he was redirected. REVIEW OF SYSTEMS: No CV, , pulmonary, eye, ENT system symptoms on review. Reliability poor. MENTAL STATUS EXAM: Oriented to himself. Insight, judgment, recent and remote memory, attention, concentration, fund of knowledge poor, consistent with his diagnosis mentioned in my initial note. PLAN: No change from initial note. MAN Gladis RECINOS MD DR: EVETTE/abdirahman JOB#: [id number] / [id number]
--- NOTE | 2019-05-27 23:35 | PN ---
DATE: 05/26/2019 PSYCHIATRIC PROGRESS NOTE This late entry 05/26/2019 covers elements not covered in my initial note. SUBJECTIVE: I met with the patient evening of 05/26/2019 and staffed at a treatment team meeting with the entire team in the morning. Reviewed the patient's history, diagnosis. The patient slept for 3/4 hours previous night. He naps during the day. Appetite 50-75%. He gets combative, aggressive for the past few days, aggressive during showers, labile, yelling at times, swearing at staff, verbally abusive. REVIEW OF SYSTEMS: Ambulation impaired. No CV, , pulmonary, eye, ENT system symptoms on review. Reliability poor. MENTAL STATUS EXAMINATION: Oriented to himself. Insight, judgment, recent and remote memory, attention, concentration, fund of knowledge poor, consistent with his diagnosis mentioned in my initial note. PLAN: Increase Seroquel from 25 mg t.i.d. to 37.5 mg t.i.d. Maintain Remeron, Depakote along with trazodone and Zyprexa p.r.n. Adjust further as clinically indicated. Maintain Seroquel 50 mg daily at 1300 as well. CECILIO RECINOS MD DR: EVETTE/abdirahman JOB#: [id number] / [id number]
[2019-05-28 05:27] VITALS: BP 108/73
[2019-05-28] MEDS: ACETAMINOPHEN 325 MG TABLET PO SCH ×2 (08:30→19:47)
[2019-05-28] MEDS: FAMOTIDINE 20 MG TABLET PO SCH ×2 (08:30→19:46)
[2019-05-28] MEDS: DIVALPROEX 125 MG CAP.SPRINK PO SCH ×2 (08:30→19:46)
[2019-05-28] MEDS: LEVOTHYROXINE 150 MCG TABLET PO SCH (08:30)
[2019-05-28] MEDS: POLYETHYLENE GLYCOL 3350 17 GM PACKET. PO SCH ×2 (08:30→19:46)
[2019-05-28] MEDS: DOCUSATE SODIUM 100 MG CAPSULE PO SCH ×2 (08:30→19:45)
[2019-05-28] MEDS: THIAMINE 100 MG TABLET. PO SCH (08:31)
[2019-05-28] MEDS: ASPIRIN 81 MG TAB.CHEW PO SCH (08:31)
[2019-05-28] MEDS: QUEtiapine 25 MG TABLET. PO SCH ×3 (08:32→19:47)
[2019-05-28] MEDS: FOLIC ACID 1 MG TABLET PO SCH (08:33)
[2019-05-28] MEDS: SERTRALINE 25 MG TABLET. PO SCH (08:33)
[2019-05-28] MEDS: CHOLECALCIFEROL (VITAMIN D3) 50,000 UNIT CAPSULE PO SCH (08:35)
[2019-05-28] MEDS: QUEtiapine 50 MG TABLET. PO SCH (12:29)
[2019-05-28 15:45] VITALS: BP 94/76
[2019-05-28] MEDS: MIRTAZAPINE 15 MG TABLET PO SCH (19:46)
[2019-05-28] MEDS: traZODone 50 MG TABLET. PO SCH (19:46)
--- NOTE | 2019-05-28 22:22 | PDOC ---
Exam Note: Sebastien Note: Please also refer to the separate dictated note~for this date of service dictated separately.~Patient seen individually. Discussed the patient with Nursing staff reviewed the chart.~Reviewed interim history and current functioning. Reviewed vital signs,~Labs/ Radiology~and current medications noted below. Continue current treatment with the changes noted in the dictated addendum note Assessment: Vital Signs/I&O: Vital Signs Date Time Temp Pulse Resp B/P (MAP) Pulse Ox O2 Delivery O2 Flow Rate FiO2 05/28/19 15:45 97.5 65 18 94/76 (82) 97.0 05/28/19 05:27 100 05/25/19 06:28 Room Air I & O 05/27/19 05/27/19 05/28/19 15:00 23:00 07:00 Intake Total 480 ml 480 ml 240 ml Balance 480 ml 480 ml 240 ml Current Medications: I have reviewed the current psychotropics carefully including drug interactions. Risk benefit ratio favors no change other than as noted in my dictated progress note. Diagnosis: Problems: (1) Anxiety disorder (2) Major neurocognitive disorder (3) Dementia in Alzheimer's disease with delusions (4) Dementia in Alzheimer's disease with depression (5) Dementia, vascular, with delusions (6) Dementia, vascular, with depression (7) Impulse control disorder (8) Alzheimer's dementia with behavioral disturbance CECILIO RECINOS MD May 28, 2019 22:22
[2019-05-29] MEDS: LEVOTHYROXINE 150 MCG TABLET PO SCH (04:54)
[2019-05-29 06:17] VITALS: BP 122/75
[2019-05-29] MEDS: DOCUSATE SODIUM 100 MG CAPSULE PO SCH ×2 (08:01→19:46)
[2019-05-29] MEDS: FAMOTIDINE 20 MG TABLET PO SCH ×2 (08:01→19:47)
[2019-05-29] MEDS: FOLIC ACID 1 MG TABLET PO SCH (08:01)
[2019-05-29] MEDS: ACETAMINOPHEN 325 MG TABLET PO SCH ×2 (08:01→19:47)
[2019-05-29] MEDS: THIAMINE 100 MG TABLET. PO SCH (08:01)
[2019-05-29] MEDS: ASPIRIN 81 MG TAB.CHEW PO SCH (08:02)
[2019-05-29] MEDS: QUEtiapine 25 MG TABLET. PO SCH ×3 (08:02→19:47)
[2019-05-29] MEDS: DIVALPROEX 125 MG CAP.SPRINK PO SCH ×2 (08:02→19:46)
[2019-05-29] MEDS: POLYETHYLENE GLYCOL 3350 17 GM PACKET. PO SCH ×2 (08:03→19:47)
[2019-05-29] MEDS: SERTRALINE 25 MG TABLET. PO SCH (08:05)
[2019-05-29] MEDS: QUEtiapine 50 MG TABLET. PO SCH (13:14)
[2019-05-29 16:12] VITALS: BP 94/59
[2019-05-29] MEDS: traZODone 50 MG TABLET. PO SCH (19:46)
[2019-05-29] MEDS: MIRTAZAPINE 15 MG TABLET PO SCH (19:47)
--- NOTE | 2019-05-29 21:36 | PDOC ---
Exam Note: Sebsatien Note: Please also refer to the separate dictated note~for this date of service dictated separately.~Patient seen individually. Discussed the patient with Nursing staff reviewed the chart.~Reviewed interim history and current functioning. Reviewed vital signs,~Labs/ Radiology~and current medications noted below. Continue current treatment with the changes noted in the dictated addendum note Assessment: Vital Signs/I&O: Vital Signs Date Time Temp Pulse Resp B/P (MAP) Pulse Ox O2 Delivery O2 Flow Rate FiO2 05/29/19 16:12 97.9 59 16 94/59 (71) 100 05/28/19 15:45 97.0 05/25/19 06:28 Room Air I & O 05/28/19 05/28/19 05/29/19 15:00 23:00 07:00 Intake Total 600 ml 120 ml 0 ml Balance 600 ml 120 ml 0 ml Current Medications: I have reviewed the current psychotropics carefully including drug interactions. Risk benefit ratio favors no change other than as noted in my dictated progress note. Diagnosis: Problems: (1) Anxiety disorder (2) Major neurocognitive disorder (3) Dementia in Alzheimer's disease with delusions (4) Dementia in Alzheimer's disease with depression (5) Dementia, vascular, with delusions (6) Dementia, vascular, with depression (7) Impulse control disorder (8) Alzheimer's dementia with behavioral disturbance CECILIO RECINOS MD May 29, 2019 21:36
--- NOTE | 2019-05-30 00:32 | PN ---
DATE: 05/27/2019 PSYCHIATRIC PROGRESS NOTE This late entry 05/27/2019 covers elements not covered in my initial note. SUBJECTIVE: I met with the patient in the evening. The patient slept 2-1/4 hours previous night. Per HARVEY Sol, the patient had a good day dosing in the day room. BUN elevated, constantly moving, somewhat busy, confused. REVIEW OF SYSTEMS: No CV, , pulmonary, eye, ENT system symptoms on review. Reliability poor. MENTAL STATUS EXAM: Oriented to himself. Insight, judgment, recent and remote memory, attention, concentration, fund of knowledge poor, consistent with his diagnosis mentioned in my initial note. PLAN: No change from initial note. MAN Gladis RECINOS MD DR: EVETTE/abdirahman JOB#: [id number] / [id number]
[2019-05-30 05:47] VITALS: BP 118/66
[2019-05-30] MEDS: LEVOTHYROXINE 150 MCG TABLET PO SCH (06:10)
[2019-05-30] MEDS: POLYETHYLENE GLYCOL 3350 17 GM PACKET. PO SCH ×2 (07:41→20:46)
[2019-05-30] MEDS: DOCUSATE SODIUM 100 MG CAPSULE PO SCH ×2 (07:42→20:46)
[2019-05-30] MEDS: SERTRALINE 25 MG TABLET. PO SCH (07:42)
[2019-05-30] MEDS: FAMOTIDINE 20 MG TABLET PO SCH ×2 (07:42→20:48)
[2019-05-30] MEDS: ASPIRIN 81 MG TAB.CHEW PO SCH (07:42)
[2019-05-30] MEDS: THIAMINE 100 MG TABLET. PO SCH (07:43)
[2019-05-30] MEDS: FOLIC ACID 1 MG TABLET PO SCH (07:43)
[2019-05-30] MEDS: ACETAMINOPHEN 325 MG TABLET PO SCH ×2 (07:43→20:50)
[2019-05-30] MEDS: QUEtiapine 25 MG TABLET. PO SCH ×3 (07:44→20:47)
[2019-05-30] MEDS: DIVALPROEX 125 MG CAP.SPRINK PO SCH ×2 (07:44→20:46)
[2019-05-30] MEDS: QUEtiapine 50 MG TABLET. PO SCH (12:25)
[2019-05-30 16:08] VITALS: BP 149/90
[2019-05-30] MEDS: MIRTAZAPINE 15 MG TABLET PO SCH (20:46)
[2019-05-30] MEDS: traZODone 50 MG TABLET. PO SCH (20:47)
--- NOTE | 2019-05-30 21:47 | PDOC ---
Exam Note: Sebastien Note: Please also refer to the separate dictated note~for this date of service dictated separately.~Patient seen individually. Discussed the patient with Nursing staff reviewed the chart.~Reviewed interim history and current functioning. Reviewed vital signs,~Labs/ Radiology~and current medications noted below. Continue current treatment with the changes noted in the dictated addendum note Assessment: Vital Signs/I&O: Vital Signs Date Time Temp Pulse Resp B/P (MAP) Pulse Ox O2 Delivery O2 Flow Rate FiO2 05/30/19 16:08 98.6 53 18 149/90 (109) 100 05/30/19 05:47 Room Air 05/28/19 15:45 97.0 I & O 0 05/29/19 05/29/19 05/30/19 15:00 23:00 07:00 Intake Total 840 ml 240 ml Balance 840 ml 240 ml Current Medications: I have reviewed the current psychotropics carefully including drug interactions. Risk benefit ratio favors no change other than as noted in my dictated progress note. Diagnosis: Problems: (1) Anxiety disorder (2) Major neurocognitive disorder (3) Dementia in Alzheimer's disease with delusions (4) Dementia in Alzheimer's disease with depression (5) Dementia, vascular, with delusions (6) Dementia, vascular, with depression (7) Impulse control disorder (8) Alzheimer's dementia with behavioral disturbance CECILIO RECINOS MD May 30, 2019 21:47
--- NOTE | 2019-05-31 01:02 | PN ---
DATE: 05/28/2019 PSYCHIATRIC PROGRESS NOTE This late entry 05/28/2019 covers the elements not covered in my initial note. SUBJECTIVE: I met with the patient in the evening. The patient slept 7 hours previous night. He remains confused, took a shower in the morning, was agitated, yelling with cares, had to be placed in the vest Hallway to reduce stimuli, better after that. Took his meds in the evening. REVIEW OF SYSTEMS: No CV, , pulmonary, eye, ENT system symptoms on review. Reliability poor. MENTAL STATUS EXAM: Oriented to himself. Insight, judgment, recent and remote memory, attention, concentration, fund of knowledge poor, consistent with his diagnosis mentioned in my initial note. PLAN: No change from initial note. MAN Gladis RECINOS MD DR: EVETTE/abdirahman JOB#: [id number] / [id number]
--- NOTE | 2019-05-31 01:03 | PN ---
DATE: 05/30/2019 PSYCHIATRIC PROGRESS NOTE. This late entry of 05/29/2019 covers the elements not covered in my initial note. SUBJECTIVE: I met with the patient in the evening. Overall, the patient remains confused, a little better, but he is verbally abrasive and screaming at times, received Zyprexa at 5:00 p.m., slept for 3/4 hours previous night and at one point had to be in the West Hallway to reduce stimuli worsening his agitation. REVIEW OF SYSTEMS: No CV, , pulmonary, eye, ENT system symptoms on review. Reliability poor. MENTAL STATUS EXAM: Oriented to himself. Insight, judgment, recent and remote memory, attention, concentration, fund of knowledge poor, consistent with his diagnosis mentioned in my initial note. PLAN: No change from initial note. MAN Gladis RECINOS MD DR: EVETTE/abdirahman JOB#: [id number] / [id number]
[2019-05-31 06:00] VITALS: BP 129/74
[2019-05-31] MEDS: LEVOTHYROXINE 150 MCG TABLET PO SCH (06:19)
[2019-05-31] MEDS: FOLIC ACID 1 MG TABLET PO SCH (08:02)
[2019-05-31] MEDS: POLYETHYLENE GLYCOL 3350 17 GM PACKET. PO SCH ×2 (08:02→20:41)
[2019-05-31] MEDS: FAMOTIDINE 20 MG TABLET PO SCH ×2 (08:02→20:41)
[2019-05-31] MEDS: DIVALPROEX 125 MG CAP.SPRINK PO SCH ×2 (08:03→20:42)
[2019-05-31] MEDS: THIAMINE 100 MG TABLET. PO SCH (08:03)
[2019-05-31] MEDS: ASPIRIN 81 MG TAB.CHEW PO SCH (08:04)
[2019-05-31] MEDS: ACETAMINOPHEN 325 MG TABLET PO SCH ×2 (08:04→20:44)
[2019-05-31] MEDS: DOCUSATE SODIUM 100 MG CAPSULE PO SCH ×2 (08:04→20:42)
[2019-05-31] MEDS: SERTRALINE 25 MG TABLET. PO SCH (08:06)
[2019-05-31] MEDS: QUEtiapine 25 MG TABLET. PO SCH ×3 (08:06→20:42)
[2019-05-31] MEDS: QUEtiapine 50 MG TABLET. PO SCH (12:18)
[2019-05-31 16:41] VITALS: BP 101/65
[2019-05-31] MEDS: traZODone 50 MG TABLET. PO SCH (20:42)
[2019-05-31] MEDS: MIRTAZAPINE 15 MG TABLET PO SCH (20:44)
--- NOTE | 2019-05-31 22:21 | PDOC ---
Exam Note: Sebastien Note: Please also refer to the separate dictated note~for this date of service dictated separately.~Patient seen individually. Discussed the patient with Nursing staff reviewed the chart.~Reviewed interim history and current functioning. Reviewed vital signs,~Labs/ Radiology~and current medications noted below. Continue current treatment with the changes noted in the dictated addendum note Assessment: Vital Signs/I&O: Vital Signs Date Time Temp Pulse Resp B/P (MAP) Pulse Ox O2 Delivery O2 Flow Rate FiO2 05/31/19 16:41 97.8 58 16 101/65 (77) 99 05/30/19 05:47 Room Air 05/28/19 15:45 97.0 I & O 05/30/19 05/30/19 05/31/19 15:00 23:00 07:00 Intake Total 340 ml 240 ml 100 ml Balance 340 ml 240 ml 100 ml Current Medications: I have reviewed the current psychotropics carefully including drug interactions. Risk benefit ratio favors no change other than as noted in my dictated progress note. Diagnosis: Problems: (1) Medical clearance for psychiatric admission (2) Anxiety disorder (3) Major neurocognitive disorder (4) Dementia in Alzheimer's disease with delusions (5) Dementia in Alzheimer's disease with depression (6) Dementia, vascular, with delusions (7) Dementia, vascular, with depression (8) Impulse control disorder (9) Hx of seizure disorder (10) HTN (hypertension) (11) Alzheimer's dementia with behavioral disturbance CECILIO RECINOS MD May 31, 2019 22:21
[2019-06-01] MEDS: LEVOTHYROXINE 150 MCG TABLET PO SCH (05:41)
--- NOTE | 2019-06-01 06:31 | PN ---
DATE: 05/30/2019 PSYCHIATRIC PROGRESS NOTE This late entry 05/30/2019 covers the elements not covered in my initial note. SUBJECTIVE: I met with the patient in the evening. Per Jacob GABRIEL, patient slept 6-1/2 hours previous night. He was angry in the morning up at 4:00 a.m., wandering, takes naps in different chairs around the room in the hallway. No PRNs were given. REVIEW OF SYSTEMS: No CV, , pulmonary, eye, ENT system symptoms on review. Reliability poor. MENTAL STATUS EXAM: Oriented to himself. Insight, judgment, recent and remote memory, attention, concentration, fund of knowledge poor, consistent with his diagnosis mentioned in my initial note. PLAN: No change from initial note. MAN Gladis RECINOS MD DR: EVETTE/abdirahman JOB#: [id number] / [id number]
[2019-06-01] MEDS: DOCUSATE SODIUM 100 MG CAPSULE PO SCH ×2 (09:38→20:47)
[2019-06-01] MEDS: DIVALPROEX 125 MG CAP.SPRINK PO SCH ×2 (09:39→20:46)
[2019-06-01] MEDS: ACETAMINOPHEN 325 MG TABLET PO SCH ×2 (09:39→20:46)
[2019-06-01] MEDS: ASPIRIN 81 MG TAB.CHEW PO SCH (09:39)
[2019-06-01] MEDS: FAMOTIDINE 20 MG TABLET PO SCH ×2 (09:40→20:46)
[2019-06-01] MEDS: SERTRALINE 25 MG TABLET. PO SCH (09:40)
[2019-06-01] MEDS: POLYETHYLENE GLYCOL 3350 17 GM PACKET. PO SCH ×2 (09:43→20:46)
[2019-06-01] MEDS: THIAMINE 100 MG TABLET. PO SCH (09:43)
[2019-06-01] MEDS: FOLIC ACID 1 MG TABLET PO SCH (09:43)
[2019-06-01] MEDS: QUEtiapine 25 MG TABLET. PO SCH ×2 (09:43→17:32)
[2019-06-01] MEDS: QUEtiapine 50 MG TABLET. PO SCH ×2 (13:55→20:50)
[2019-06-01 16:13] VITALS: BP 90/60
[2019-06-01] MEDS: MIRTAZAPINE 15 MG TABLET PO SCH (20:46)
[2019-06-01] MEDS: traZODone 50 MG TABLET. PO SCH (20:47)
--- NOTE | 2019-06-01 21:35 | PDOC ---
Exam Note: Sebastien Note: Please also refer to the separate dictated note~for this date of service dictated separately.~Patient seen individually. Discussed the patient with Nursing staff reviewed the chart.~Reviewed interim history and current functioning. Reviewed vital signs,~Labs/ Radiology~and current medications noted below. Continue current treatment with the changes noted in the dictated addendum note Assessment: Vital Signs/I&O: Vital Signs Date Time Temp Pulse Resp B/P (MAP) Pulse Ox O2 Delivery O2 Flow Rate FiO2 06/01/19 16:13 97.5 69 16 90/60 (70) 97 05/30/19 05:47 Room Air 05/28/19 15:45 97.0 I & O 0 05/31/19 05/31/19 06/01/19 14:59 22:59 06:59 Intake Total 960 ml 480 ml 120 ml Balance 960 ml 480 ml 120 ml Current Medications: Meds: Current Medications Medications (Trade) Dose Ordered Sig/Moo Route PRN Reason Start Time Stop Time Status Last Admin Dose Admin Quetiapine Fumarate (SEROquel) 50 mg [id number] PO 06/01/19 21:00 06/01/19 20:50 I have reviewed the current psychotropics carefully including drug interactions. Risk benefit ratio favors no change other than as noted in my dictated progress note. Diagnosis: Problems: (1) Anxiety disorder (2) Major neurocognitive disorder (3) Dementia in Alzheimer's disease with delusions (4) Dementia in Alzheimer's disease with depression (5) Dementia, vascular, with delusions (6) Dementia, vascular, with depression (7) Impulse control disorder (8) Alzheimer's dementia with behavioral disturbance CECILIO RECINOS MD Jun 01, 2019 21:35
[2019-06-02 05:14] LABS: BACTERIA,URINE 0 /HPF (0-FEW); BILIRUBIN,URINE NEG (NEG); CLARITY,URINE CLEAR; COLOR,URINE YELLOW; GLUCOSE,URINE NEG (NEG); NITRITE,URINE NEG (NEG); RBC,URINE 0 /HPF (0-2); SQUAMOUS EPITHELIAL CELL,UR OCC /LPF; UROBILINOGEN,URINE 0.2 mg/dL (0.2 mg/dL)
[2019-06-02 05:39] VITALS: BP 128/85
[2019-06-02] MEDS: LEVOTHYROXINE 150 MCG TABLET PO SCH (05:43)
[2019-06-02] MEDS: POLYETHYLENE GLYCOL 3350 17 GM PACKET. PO SCH ×2 (07:53→20:21)
[2019-06-02] MEDS: DIVALPROEX 125 MG CAP.SPRINK PO SCH ×2 (07:54→20:22)
[2019-06-02] MEDS: THIAMINE 100 MG TABLET. PO SCH (07:54)
[2019-06-02] MEDS: FOLIC ACID 1 MG TABLET PO SCH (07:55)
[2019-06-02] MEDS: ASPIRIN 81 MG TAB.CHEW PO SCH (07:55)
[2019-06-02] MEDS: DOCUSATE SODIUM 100 MG CAPSULE PO SCH ×2 (07:55→20:21)
[2019-06-02] MEDS: QUEtiapine 50 MG TABLET. PO SCH ×4 (07:55→20:21)
[2019-06-02] MEDS: ACETAMINOPHEN 325 MG TABLET PO SCH ×2 (07:55→20:22)
[2019-06-02] MEDS: SERTRALINE 25 MG TABLET. PO SCH (10:52)
[2019-06-02] MEDS: FAMOTIDINE 20 MG TABLET PO SCH ×2 (10:52→20:21)
--- NOTE | 2019-06-02 14:50 | PN ---
DATE: 05/31/2019 PSYCHIATRIC PROGRESS NOTE This late entry, 05/31, covers elements not covered in my initial note. SUBJECTIVE: I met with the patient evening of 05/31. The patient slept 6-3/4 hours previous night per nursing report from Maria De Jesus. Did well at night. Became agitated during the day on 05/31, received Zyprexa at noon. He had to be in the hallway to eat apart from the other patients due to his intermittent agitation. REVIEW OF SYSTEMS: No CV, , pulmonary, eye, ENT system symptoms on review. Reliability poor. MENTAL STATUS EXAM: Oriented to himself. Insight, judgment, recent and remote memory, attention, concentration, fund of knowledge poor, consistent with his diagnosis mentioned in my initial note. PLAN: No change from initial note. MAN Gladis RECINOS MD DR: EVETTE/abdirahman JOB#: [id number] / [id number]
[2019-06-02 17:11] VITALS: BP 110/67
[2019-06-02] MEDS: MIRTAZAPINE 15 MG TABLET PO SCH (20:21)
[2019-06-02] MEDS: traZODone 50 MG TABLET. PO SCH (20:21)
--- NOTE | 2019-06-02 21:55 | PDOC ---
Exam Note: Sebastien Note: Please also refer to the separate dictated note~for this date of service dictated separately.~Patient seen individually. Discussed the patient with Nursing staff reviewed the chart.~Reviewed interim history and current functioning. Reviewed vital signs,~Labs/ Radiology~and current medications noted below. Continue current treatment with the changes noted in the dictated addendum note Assessment: Vital Signs/I&O: Vital Signs Date Time Temp Pulse Resp B/P (MAP) Pulse Ox O2 Delivery O2 Flow Rate FiO2 06/02/19 17:11 96.7 63 18 110/67 (81) 97 06/02/19 05:39 Room Air 05/28/19 15:45 97.0 I & O 06/01/19 06/01/19 06/02/19 15:00 23:00 07:00 Intake Total 840 ml 240 ml 240 ml Balance 840 ml 240 ml 240 ml Labs: Laboratory Tests Test 06/02/19 04:45 Urine Collection Type Unknown Urine Color Yellow Urine Clarity Clear Urine pH 7.0 Urine Specific [place] 1.020 Urine Protein Neg (NEG-TRACE) Urine Glucose (UA) Neg mg/dL (NEG) Urine Ketones (Stick) Neg mg/dL (NEG) Urine Blood Neg (NEG) Urine Nitrite Neg (NEG) Urine Bilirubin Neg (NEG) Urine Urobilinogen Dipstick 0.2 mg/dL (0.2 mg/dL) Urine Leukocyte Esterase Neg (NEG) Urine RBC 0 /HPF (0-2) Urine WBC 1-4 /HPF (0-4) Urine Squamous Epithelial Cells Occ /LPF Urine Bacteria 0 /HPF (0-FEW) Current Medications: I have reviewed the current psychotropics carefully including drug interactions. Risk benefit ratio favors no change other than as noted in my dictated progress note. Diagnosis: Problems: (1) Anxiety disorder (2) Major neurocognitive disorder (3) Dementia in Alzheimer's disease with delusions (4) Dementia in Alzheimer's disease with depression (5) Dementia, vascular, with delusions (6) Dementia, vascular, with depression (7) Impulse control disorder (8) Alzheimer's dementia with behavioral disturbance CECILIO RECINOS MD Jun 02, 2019 21:55
[2019-06-03 06:07] VITALS: BP 138/81
[2019-06-03] MEDS: FAMOTIDINE 20 MG TABLET PO SCH ×2 (08:21→20:07)
[2019-06-03] MEDS: QUEtiapine 50 MG TABLET. PO SCH ×4 (08:21→20:10)
[2019-06-03] MEDS: FOLIC ACID 1 MG TABLET PO SCH (08:21)
[2019-06-03] MEDS: POLYETHYLENE GLYCOL 3350 17 GM PACKET. PO SCH ×2 (08:21→20:08)
[2019-06-03] MEDS: THIAMINE 100 MG TABLET. PO SCH (08:21)
[2019-06-03] MEDS: ASPIRIN 81 MG TAB.CHEW PO SCH (08:22)
[2019-06-03] MEDS: DOCUSATE SODIUM 100 MG CAPSULE PO SCH ×2 (08:22→20:06)
[2019-06-03] MEDS: DIVALPROEX 125 MG CAP.SPRINK PO SCH ×2 (08:22→20:07)
[2019-06-03] MEDS: ACETAMINOPHEN 325 MG TABLET PO SCH ×2 (08:22→20:07)
[2019-06-03] MEDS: LEVOTHYROXINE 150 MCG TABLET PO SCH (08:22)
[2019-06-03] MEDS: SERTRALINE 100 MG TABLET. PO SCH (08:24)
[2019-06-03 16:33] VITALS: BP 118/69
[2019-06-03] MEDS: traZODone 50 MG TABLET. PO SCH (20:07)
[2019-06-03] MEDS: MIRTAZAPINE 15 MG TABLET PO SCH (20:07)
--- NOTE | 2019-06-03 21:45 | PDOC ---
Exam Note: Sebastien Note: Please also refer to the separate dictated note~for this date of service dictated separately.~Patient seen individually. Discussed the patient with Nursing staff reviewed the chart.~Reviewed interim history and current functioning. Reviewed vital signs,~Labs/ Radiology~and current medications noted below. Continue current treatment with the changes noted in the dictated addendum note Assessment: Vital Signs/I&O: Vital Signs Date Time Temp Pulse Resp B/P (MAP) Pulse Ox O2 Delivery O2 Flow Rate FiO2 06/03/19 16:33 97.0 67 16 118/69 (85) 98 06/02/19 05:39 Room Air 05/28/19 15:45 97.0 I & O 06/02/19 06/02/19 06/03/19 15:00 23:00 07:00 Intake Total 480 ml 600 ml 120 ml Balance 480 ml 600 ml 120 ml Current Medications: Meds: Current Medications Medications (Trade) Dose Ordered Sig/Moo Route PRN Reason Start Time Stop Time Status Last Admin Dose Admin Sertraline HCl (Zoloft) 100 mg DAILY PO 06/03/19 09:00 06/03/19 08:24 I have reviewed the current psychotropics carefully including drug interactions. Risk benefit ratio favors no change other than as noted in my dictated progress note. Diagnosis: Problems: (1) Anxiety disorder (2) Major neurocognitive disorder (3) Dementia in Alzheimer's disease with delusions (4) Dementia in Alzheimer's disease with depression (5) Dementia, vascular, with delusions (6) Dementia, vascular, with depression (7) Impulse control disorder (8) Alzheimer's dementia with behavioral disturbance CECILIO RECINOS MD Jun 03, 2019 21:45
--- NOTE | 2019-06-03 22:27 | PN ---
DATE: 06/01/2019 PSYCHIATRIC PROGRESS NOTE This late entry 06/01/2019 covers the elements not covered in my initial note. SUBJECTIVE: I met with the patient in the evening of 06/01/2019. Per nursing report from HARVEY Putnam, patient was compliant with shower. Previous night, he was agitated, calling staff by profane names, would get easily agitated, received Zyprexa at 1:45. REVIEW OF SYSTEMS: No CV, , pulmonary, eye, ENT system symptoms on review. Reliability is poor. MENTAL STATUS EXAM: Oriented to himself. Insight, judgment, recent and remote memory, attention, concentration, fund of knowledge poor, consistent with his diagnosis mentioned in my initial note. PLAN: Increase Seroquel to 50 mg 4 times a day. Maintain Zoloft, Depakote, Remeron, trazodone, unchanged for now along with Zyprexa p.r.n. CECILIO RECINOS MD DR: EVETTE/abdirahman JOB#: [id number] / [id number]
--- NOTE | 2019-06-03 22:30 | PN ---
DATE: 06/02/2019 PSYCHIATRIC PROGRESS NOTE This late entry of 06/02/2019 covers the elements not covered in my initial note. SUBJECTIVE: I met with the patient in the evening of 06/02/2019 and staffed at a treatment team meeting with the entire team in the morning. The patient slept 5 hours. Appetite 75-100%. He remains confused, wandering, delusional and intermittently hallucinating, agitated, resistive to cares. He had a telephone call with his yesterday, somewhat inappropriate sexually per Social Service staff observation. Checking the doors at times. Takes his meds in vanilla boost ice cream. REVIEW OF SYSTEMS: No CV, , pulmonary, eye, ENT system symptoms on review. Reliability poor. MENTAL STATUS EXAM: Oriented to himself. Insight, judgment, recent and remote memory, attention, concentration, fund of knowledge poor, consistent with his diagnosis mentioned in my initial note. PLAN: No change from initial note, but given his sexually inappropriate behaviors, we will add Provera 2.5 mg a day if okay with Dr. Posada from a medical standpoint. Rest unchanged. MAN Gladis RECINOS MD DR: EVETTE/abdirahman JOB#: [id number] / [id number]
[2019-06-04 06:04] VITALS: BP 132/81
[2019-06-04] MEDS: LEVOTHYROXINE 150 MCG TABLET PO SCH (06:25)
[2019-06-04] MEDS: DIVALPROEX 125 MG CAP.SPRINK PO SCH ×2 (07:29→21:09)
[2019-06-04] MEDS: ACETAMINOPHEN 325 MG TABLET PO SCH ×2 (07:30→21:10)
[2019-06-04] MEDS: QUEtiapine 50 MG TABLET. PO SCH ×4 (07:30→21:09)
[2019-06-04] MEDS: DOCUSATE SODIUM 100 MG CAPSULE PO SCH ×2 (07:30→21:09)
[2019-06-04] MEDS: FAMOTIDINE 20 MG TABLET PO SCH ×2 (07:30→21:09)
[2019-06-04] MEDS: THIAMINE 100 MG TABLET. PO SCH (07:31)
[2019-06-04] MEDS: FOLIC ACID 1 MG TABLET PO SCH (07:32)
[2019-06-04] MEDS: SERTRALINE 100 MG TABLET. PO SCH (07:32)
[2019-06-04] MEDS: POLYETHYLENE GLYCOL 3350 17 GM PACKET. PO SCH ×2 (07:32→21:09)
[2019-06-04] MEDS: ASPIRIN 81 MG TAB.CHEW PO SCH (07:32)
[2019-06-04] MEDS: CHOLECALCIFEROL (VITAMIN D3) 50,000 UNIT CAPSULE PO SCH (07:35)
[2019-06-04 15:55] VITALS: BP 154/91
[2019-06-04] MEDS: traZODone 50 MG TABLET. PO SCH ×2 (17:18→21:15)
[2019-06-04] MEDS: MIRTAZAPINE 15 MG TABLET PO SCH (21:09)
--- NOTE | 2019-06-04 21:59 | PDOC ---
Exam Note: Sebastien Note: Please also refer to the separate dictated note~for this date of service dictated separately.~Patient seen individually. Discussed the patient with Nursing staff reviewed the chart.~Reviewed interim history and current functioning. Reviewed vital signs,~Labs/ Radiology~and current medications noted below. Continue current treatment with the changes noted in the dictated addendum note Assessment: Vital Signs/I&O: Vital Signs Date Time Temp Pulse Resp B/P (MAP) Pulse Ox O2 Delivery O2 Flow Rate FiO2 06/04/19 15:55 97.3 56 20 154/91 (112) 99 Room Air I & O 06/03/19 06/03/19 06/04/19 15:00 23:00 07:00 Intake Total 480 ml 240 ml 120 ml Balance 480 ml 240 ml 120 ml Current Medications: Meds: Current Medications Medications (Trade) Dose Ordered Sig/Moo Route PRN Reason Start Time Stop Time Status Last Admin Dose Admin Trazodone HCl (Desyrel) 12.5 mg BID@0900,1700 PO 06/04/19 17:00 06/04/19 17:18 I have reviewed the current psychotropics carefully including drug interactions. Risk benefit ratio favors no change other than as noted in my dictated progress note. Diagnosis: Problems: (1) Anxiety disorder (2) Major neurocognitive disorder (3) Dementia in Alzheimer's disease with delusions (4) Dementia in Alzheimer's disease with depression (5) Dementia, vascular, with delusions (6) Dementia, vascular, with depression (7) Impulse control disorder (8) Alzheimer's dementia with behavioral disturbance CECILIO RECINOS MD Jun 04, 2019 21:59
[2019-06-05 06:06] VITALS: BP 134/83
[2019-06-05] MEDS: LEVOTHYROXINE 150 MCG TABLET PO SCH (06:13)
[2019-06-05] MEDS: ASPIRIN 81 MG TAB.CHEW PO SCH (07:41)
[2019-06-05] MEDS: DIVALPROEX 125 MG CAP.SPRINK PO SCH ×2 (07:42→20:16)
[2019-06-05] MEDS: THIAMINE 100 MG TABLET. PO SCH (07:42)
[2019-06-05] MEDS: DOCUSATE SODIUM 100 MG CAPSULE PO SCH ×2 (07:42→20:16)
[2019-06-05] MEDS: ACETAMINOPHEN 325 MG TABLET PO SCH ×2 (07:43→20:17)
[2019-06-05] MEDS: traZODone 50 MG TABLET. PO SCH ×3 (07:43→20:16)
[2019-06-05] MEDS: FAMOTIDINE 20 MG TABLET PO SCH ×2 (07:43→20:17)
[2019-06-05] MEDS: QUEtiapine 50 MG TABLET. PO SCH ×4 (07:43→20:17)
[2019-06-05] MEDS: POLYETHYLENE GLYCOL 3350 17 GM PACKET. PO SCH ×2 (07:45→20:16)
[2019-06-05] MEDS: SERTRALINE 100 MG TABLET. PO SCH (07:45)
[2019-06-05] MEDS: FOLIC ACID 1 MG TABLET PO SCH (07:45)
[2019-06-05 16:29] VITALS: BP 96/72
[2019-06-05] MEDS: MIRTAZAPINE 15 MG TABLET PO SCH (20:17)
[2019-06-05] MEDS: traZODone 50 MG TABLET. PO PRN (23:05)
[2019-06-06] MEDS: LEVOTHYROXINE 150 MCG TABLET PO SCH (05:30)
[2019-06-06 05:40] VITALS: BP 129/79
--- NOTE | 2019-06-06 06:56 | PN ---
DATE: 06/05/2019 SUBJECTIVE: The patient was seen today, met with the staff, chart reviewed and also covering for Dr. Holman. Staff reports increased behavior problems, confusion, disorganized thinking and also sexually inappropriate behaviors at times. The patient also with very limited vocabulary. The patient is not able to hold a conversation. OBSERVATION: VITAL SIGNS: Temperature 97.5, blood pressure 134/85, pulse 94, respirations 16, O2 sat 99%. GENERAL: Slept about 5 hours last night. The patient's appetite is fair. MEDICATIONS: Reviewed. Currently on trazodone 12.5 mg twice a day, Zoloft 100 mg daily, Seroquel 50 mg q.i.d., Depakote 500 mg daily and 750 at night. The patient is also on trazodone 50 mg at night, mirtazapine 15 mg at night, trazodone 50 mg at bedtime p.o. p.r.n., also olanzapine 2.5 mg q. 2 hours p.r.n. LABORATORY DATA: The patient's lab reviewed. Hemoglobin level of 10.3, BUN 55 and valproic acid level was 64. ASSESSMENT: Major neurocognitive disorder, most likely Alzheimer's and vascular with depression, delusions and behavioral disturbances; anxiety disorder, unspecified; and also impulse control disorder, unspecified. PLAN: Continue with the current treatment plan. EVELINA CHINCHILLA MD DR: HANNAH/abdirahman JOB#: [id number] / [id number]
[2019-06-06] MEDS: THIAMINE 100 MG TABLET. PO SCH (07:51)
[2019-06-06] MEDS: DIVALPROEX 125 MG CAP.SPRINK PO SCH ×2 (07:51→19:42)
[2019-06-06] MEDS: FOLIC ACID 1 MG TABLET PO SCH (07:52)
[2019-06-06] MEDS: traZODone 50 MG TABLET. PO SCH ×3 (07:52→19:42)
[2019-06-06] MEDS: ACETAMINOPHEN 325 MG TABLET PO SCH ×2 (07:53→19:44)
[2019-06-06] MEDS: POLYETHYLENE GLYCOL 3350 17 GM PACKET. PO SCH ×2 (07:53→19:44)
[2019-06-06] MEDS: ASPIRIN 81 MG TAB.CHEW PO SCH (07:53)
[2019-06-06] MEDS: SERTRALINE 100 MG TABLET. PO SCH (07:53)
[2019-06-06] MEDS: FAMOTIDINE 20 MG TABLET PO SCH ×2 (07:54→19:42)
[2019-06-06] MEDS: QUEtiapine 50 MG TABLET. PO SCH ×4 (07:54→19:43)
[2019-06-06] MEDS: DOCUSATE SODIUM 100 MG CAPSULE PO SCH ×2 (07:55→19:42)
[2019-06-06 16:13] VITALS: BP 96/68
[2019-06-06] MEDS: MIRTAZAPINE 15 MG TABLET PO SCH (19:43)
[2019-06-07] MEDS: LEVOTHYROXINE 150 MCG TABLET PO SCH (05:27)
[2019-06-07 05:57] VITALS: BP 117/77
[2019-06-07] MEDS: POLYETHYLENE GLYCOL 3350 17 GM PACKET. PO SCH ×2 (07:35→19:32)
[2019-06-07] MEDS: SERTRALINE 100 MG TABLET. PO SCH (07:36)
[2019-06-07] MEDS: DIVALPROEX 125 MG CAP.SPRINK PO SCH ×2 (07:36→19:32)
[2019-06-07] MEDS: ASPIRIN 81 MG TAB.CHEW PO SCH (07:36)
[2019-06-07] MEDS: ACETAMINOPHEN 325 MG TABLET PO SCH ×2 (07:38→19:32)
[2019-06-07] MEDS: traZODone 50 MG TABLET. PO SCH ×3 (07:38→19:32)
[2019-06-07] MEDS: FAMOTIDINE 20 MG TABLET PO SCH ×2 (07:38→19:32)
[2019-06-07] MEDS: FOLIC ACID 1 MG TABLET PO SCH (07:40)
[2019-06-07] MEDS: THIAMINE 100 MG TABLET. PO SCH (07:40)
[2019-06-07] MEDS: DOCUSATE SODIUM 100 MG CAPSULE PO SCH ×2 (07:40→19:32)
[2019-06-07] MEDS: QUEtiapine 50 MG TABLET. PO SCH ×4 (07:40→19:32)
--- NOTE | 2019-06-07 11:48 | PN ---
DATE: 06/06/2019 SUBJECTIVE: The patient was seen today, met with the staff, chart reviewed. The patient continues to have problems with behaviors at times, sexually inappropriate. The patient tends to wander. The patient has difficulty communicating. He is confused. OBSERVATION: VITAL SIGNS: Temperature 97.7, blood pressure 129/79, pulse 56, respirations 20, O2 sat 98%. Slept about 5 hours last night. CURRENT MEDICATIONS: The patient's current medications include trazodone 12.5 mg b.i.d. p.o., Zoloft 100 mg daily, Seroquel 50 mg q.i.d., Depakote 500 mg daily and 750 mg at night and trazodone 50 mg at night. The patient is also on mirtazapine 15 mg at night. The patient is not having any side effects. The patient's lab reviewed. ASSESSMENT: 1. Major neurocognitive disorder, most likely Alzheimer's and vascular with depression, delusion and behavioral disturbances. 2. Anxiety disorder, unspecified. 3. Impulse control disorder, unspecified. PLAN: To continue with the treatment. EVELINA CHINCHILLA MD DR: HANNAH/abdirahman JOB#: [id number] / [id number]
[2019-06-07 16:28] VITALS: BP 104/71
[2019-06-07] MEDS: MIRTAZAPINE 15 MG TABLET PO SCH (19:32)
--- NOTE | 2019-06-07 21:55 | PDOC ---
Exam Note: Sebastien Note: Please also refer to the separate dictated note~for this date of service dictated separately.~Patient seen individually. Discussed the patient with Nursing staff reviewed the chart.~Reviewed interim history and current functioning. Reviewed vital signs,~Labs/ Radiology~and current medications noted below. Continue current treatment with the changes noted in the dictated addendum note Assessment: Vital Signs/I&O: Vital Signs Date Time Temp Pulse Resp B/P (MAP) Pulse Ox O2 Delivery O2 Flow Rate FiO2 06/07/19 16:28 97.1 57 16 104/71 (82) 99 06/05/19 06:06 Room Air I & O 06/06/19 06/06/19 06/07/19 15:00 23:00 07:00 Intake Total 840 ml 600 ml Balance 840 ml 600 ml Current Medications: I have reviewed the current psychotropics carefully including drug interactions. Risk benefit ratio favors no change other than as noted in my dictated progress note. Diagnosis: Problems: (1) Anxiety disorder (2) Major neurocognitive disorder (3) Dementia in Alzheimer's disease with delusions (4) Dementia in Alzheimer's disease with depression (5) Dementia, vascular, with delusions (6) Dementia, vascular, with depression (7) Impulse control disorder (8) Alzheimer's dementia with behavioral disturbance CECILIO RECINOS MD Jun 07, 2019 21:55
--- NOTE | 2019-06-08 01:52 | PN ---
DATE: 06/03/2019 PSYCHIATRIC PROGRESS NOTE This late entry 06/03/2019 covers elements not covered in my initial note. SUBJECTIVE: I met with the patient evening of 06/03/2019. Per HARVEY Werner, the patient had 2 episodes of yelling out. He has been at times sexually inappropriate and we will start him on Provera 2.5 mg a day if okay with Dr. Posada/Dr. Henson. Slept 4-1/2 hours previous night. REVIEW OF SYSTEMS: No CV, , pulmonary, eye, ENT system symptoms on review. Reliability poor. MENTAL STATUS EXAM: Oriented to himself. Insight, judgment, recent and remote memory, attention, concentration, fund of knowledge poor, consistent with his diagnosis mentioned in my initial note. PLAN: No change from initial note. MAN Gladis RECINOS MD DR: EVETTE/abdirahman JOB#: [id number] / [id number]
--- NOTE | 2019-06-08 02:06 | PN ---
DATE: 06/04/2019 This late entry, 06/04/2019, covers the elements not covered in my initial note. SUBJECTIVE: I met with the patient in the morning. According to Pat RN, patient slept 7 hours previous night. He remains confused, no change. No sexually inappropriate behaviors. REVIEW OF SYSTEMS: No CV, , pulmonary, eye, ENT system symptoms on review. Reliability poor. MENTAL STATUS EXAM: Oriented to himself. Insight, judgment, recent and remote memory, attention, concentration, fund of knowledge are poor, consistent with his diagnosis mentioned in my initial note. PLAN: No change from initial note, but we will go ahead and start low dose trazodone for his intermittent agitation 12.5 mg 09:00 a.m. and 05:00 p.m. Rest unchanged for now. Dr. Edwards will cover for me 06/05/2019 and 06/06/2019. MAN Gladis RECINOS MD DR: EVETTE/abdirahman JOB#: [id number] / [id number]
[2019-06-08 05:57] VITALS: BP 143/75
[2019-06-08] MEDS: LEVOTHYROXINE 150 MCG TABLET PO SCH (06:00)
[2019-06-08] MEDS: DIVALPROEX 125 MG CAP.SPRINK PO SCH ×2 (08:17→20:08)
[2019-06-08] MEDS: DOCUSATE SODIUM 100 MG CAPSULE PO SCH ×2 (08:17→20:08)
[2019-06-08] MEDS: ASPIRIN 81 MG TAB.CHEW PO SCH (08:17)
[2019-06-08] MEDS: FOLIC ACID 1 MG TABLET PO SCH (08:18)
[2019-06-08] MEDS: FAMOTIDINE 20 MG TABLET PO SCH ×2 (08:18→20:07)
[2019-06-08] MEDS: POLYETHYLENE GLYCOL 3350 17 GM PACKET. PO SCH ×2 (08:18→20:07)
[2019-06-08] MEDS: traZODone 50 MG TABLET. PO SCH ×3 (08:18→20:08)
[2019-06-08] MEDS: QUEtiapine 50 MG TABLET. PO SCH ×4 (08:19→20:07)
[2019-06-08] MEDS: THIAMINE 100 MG TABLET. PO SCH (08:19)
[2019-06-08] MEDS: ACETAMINOPHEN 325 MG TABLET PO SCH ×2 (08:19→20:07)
[2019-06-08] MEDS: SERTRALINE 100 MG TABLET. PO SCH (08:19)
[2019-06-08 09:13] LABS: BASO % 1 % (0-3); EOS # 0.2 x10^3/uL (0.0-0.7); EOS % 5 % (0-3); HEMATOCRIT 34.8 % (39.0-53.0); HEMOGLOBIN 11.1 g/dL (13.0-17.5); LYMPH # 1.1 x10^3/uL (1.0-4.8); LYMPH % 30 % (24-48); MEAN CORPUSCULAR HEMOGLOBIN 30 pg (25-35); MEAN CORPUSCULAR HGB CONC 32 g/dL (31-37); MEAN CORPUSCULAR VOLUME 94 fL (79-100); MONO # 0.5 x10^3/uL (0.0-1.1); MONO % 13 % (0-9); NEUT # 1.9 x10^3uL (1.8-7.7); NEUT % 52 % (31-73); PLATELET COUNT 231 x10^3/uL (140-400); RED BLOOD COUNT 3.72 x10^6/uL (4.30-5.70); RED CELL DISTRIBUTION WIDTH 16.6 % (11.5-14.5); WHITE BLOOD COUNT 3.6 x10^3/uL (4.0-11.0)
[2019-06-08 09:27] LABS: ALBUMIN/GLOBULIN RATIO 1.1 (1.0-1.7); CALCIUM 9.3 mg/dL (8.5-10.1); CREATININE 1.1 mg/dL (0.7-1.3); GFR 65.8; POTASSIUM 4.5 mmol/L (3.5-5.1); TOTAL BILIRUBIN 0.5 mg/dL (0.2-1.0); TOTAL PROTEIN 7.6 g/dL (6.4-8.2)
[2019-06-08 16:31] VITALS: BP 115/75
[2019-06-08] MEDS: MIRTAZAPINE 15 MG TABLET PO SCH (20:07)
--- NOTE | 2019-06-08 22:01 | PDOC ---
Exam Note: Sebastien Note: Please also refer to the separate dictated note~for this date of service dictated separately.~Patient seen individually. Discussed the patient with Nursing staff reviewed the chart.~Reviewed interim history and current functioning. Reviewed vital signs,~Labs/ Radiology~and current medications noted below. Continue current treatment with the changes noted in the dictated addendum note Assessment: Vital Signs/I&O: Vital Signs Date Time Temp Pulse Resp B/P (MAP) Pulse Ox O2 Delivery O2 Flow Rate FiO2 06/08/19 16:31 97.2 61 16 115/75 (88) 100 06/05/19 06:06 Room Air I & O 06/07/19 06/07/19 06/08/19 15:00 23:00 07:00 Intake Total 720 ml 360 ml Balance 720 ml 360 ml Labs: Laboratory Tests Test 06/08/19 09:03 White Blood Count 3.6 x10^3/uL (4.0-11.0) L Red Blood Count 3.72 x10^6/uL (4.30-5.70) L Hemoglobin 11.1 g/dL (13.0-17.5) L Hematocrit 34.8 % (39.0-53.0) L Mean Corpuscular Volume 94 fL (79-100) Mean Corpuscular Hemoglobin 30 pg (25-35) Mean Corpuscular Hemoglobin Concent 32 g/dL (31-37) Red Cell Distribution Width 16.6 % (11.5-14.5) H Platelet Count 231 x10^3/uL (140-400) Neutrophils (%) (Auto) 52 % (31-73) Lymphocytes (%) (Auto) 30 % (24-48) Monocytes (%) (Auto) 13 % (0-9) H Eosinophils (%) (Auto) 5 % (0-3) H Basophils (%) (Auto) 1 % (0-3) Neutrophils # (Auto) 1.9 x10^3uL (1.8-7.7) Lymphocytes # (Auto) 1.1 x10^3/uL (1.0-4.8) Monocytes # (Auto) 0.5 x10^3/uL (0.0-1.1) Eosinophils # (Auto) 0.2 x10^3/uL (0.0-0.7) Basophils # (Auto) 0.0 x10^3/uL (0.0-0.2) Sodium Level 144 mmol/L (136-145) Potassium Level 4.5 mmol/L (3.5-5.1) Chloride Level 106 mmol/L (98-107) Carbon Dioxide Level 28 mmol/L (21-32) Anion Gap 10 (6-14) Blood Urea Nitrogen 38 mg/dL (8-26) H Creatinine 1.1 mg/dL (0.7-1.3) Estimated GFR (Cockcroft-Gault) 65.8 BUN/Creatinine Ratio 35 (6-20) H Glucose Level 130 mg/dL (70-99) H Calcium Level 9.3 mg/dL (8.5-10.1) Total Bilirubin 0.5 mg/dL (0.2-1.0) Aspartate Amino Transferase (AST) 27 U/L (15-37) Alanine Aminotransferase (ALT) 53 U/L (16-63) Alkaline Phosphatase 76 U/L (46-116) Total Protein 7.6 g/dL (6.4-8.2) Albumin 4.0 g/dL (3.4-5.0) Albumin/Globulin Ratio 1.1 (1.0-1.7) Current Medications: I have reviewed the current psychotropics carefully including drug interactions. Risk benefit ratio favors no change other than as noted in my dictated progress note. Diagnosis: Problems: (1) Anxiety disorder (2) Major neurocognitive disorder (3) Dementia in Alzheimer's disease with delusions (4) Dementia in Alzheimer's disease with depression (5) Dementia, vascular, with delusions (6) Dementia, vascular, with depression (7) Impulse control disorder (8) Alzheimer's dementia with behavioral disturbance CECILIO RECINOS MD Jun 08, 2019 22:01
[2019-06-09] MEDS: LEVOTHYROXINE 150 MCG TABLET PO SCH (04:10)
--- NOTE | 2019-06-09 04:42 | PN ---
DATE: 06/07/2019 PSYCHIATRIC PROGRESS NOTE This late entry 06/07/2019 covers the elements not covered in my initial note. SUBJECTIVE: I met with the patient in the evening of 06/07/2019. Also reviewed information from Dr. Avila. Dr. Avila covered for me for the past 2 days. The patient slept 7-3/4 hours previous night. For the most part, he has had a good day per nursing report, but he remains confused. However, in the evening, he was quite agitated at a female nursing staff aide who was trying to assist him because he was incontinent. He was earlier incontinent in the shower. REVIEW OF SYSTEMS: No CV, , pulmonary, eye, ENT system symptoms on review. Reliability is poor. MENTAL STATUS EXAM: Oriented to himself. Insight, judgment, recent and remote memory, attention, concentration, fund of knowledge poor, consistent with his diagnosis mentioned in my initial note. PLAN: No change from initial note. MAN Gladis RECINOS MD DR: EVETTE/abdirahman JOB#: [id number] / [id number]
[2019-06-09 06:36] VITALS: BP 126/77
[2019-06-09] MEDS: SERTRALINE 100 MG TABLET. PO SCH (08:01)
[2019-06-09] MEDS: FAMOTIDINE 20 MG TABLET PO SCH ×2 (08:01→19:48)
[2019-06-09] MEDS: ACETAMINOPHEN 325 MG TABLET PO SCH ×2 (08:01→19:54)
[2019-06-09] MEDS: THIAMINE 100 MG TABLET. PO SCH (08:01)
[2019-06-09] MEDS: POLYETHYLENE GLYCOL 3350 17 GM PACKET. PO SCH ×2 (08:01→19:52)
[2019-06-09] MEDS: QUEtiapine 50 MG TABLET. PO SCH ×4 (08:01→19:50)
[2019-06-09] MEDS: DOCUSATE SODIUM 100 MG CAPSULE PO SCH ×2 (08:01→19:48)
[2019-06-09] MEDS: ASPIRIN 81 MG TAB.CHEW PO SCH (08:02)
[2019-06-09] MEDS: FOLIC ACID 1 MG TABLET PO SCH (08:02)
[2019-06-09] MEDS: traZODone 50 MG TABLET. PO SCH ×3 (08:03→19:50)
[2019-06-09] MEDS: DIVALPROEX 125 MG CAP.SPRINK PO SCH ×2 (08:03→19:49)
[2019-06-09 17:39] VITALS: BP 100/66
[2019-06-09] MEDS: MIRTAZAPINE 15 MG TABLET PO SCH (19:50)
--- NOTE | 2019-06-09 22:01 | PDOC ---
Exam Note: Sebastien Note: Please also refer to the separate dictated note~for this date of service dictated separately.~Patient seen individually. Discussed the patient with Nursing staff reviewed the chart.~Reviewed interim history and current functioning. Reviewed vital signs,~Labs/ Radiology~and current medications noted below. Continue current treatment with the changes noted in the dictated addendum note Assessment: Vital Signs/I&O: Vital Signs Date Time Temp Pulse Resp B/P (MAP) Pulse Ox O2 Delivery O2 Flow Rate FiO2 06/09/19 17:39 97.8 63 16 100/66 (77) 99 Room Air I & O 06/08/19 06/08/19 06/09/19 15:00 23:00 07:00 Intake Total 720 ml 480 ml Balance 720 ml 480 ml Current Medications: I have reviewed the current psychotropics carefully including drug interactions. Risk benefit ratio favors no change other than as noted in my dictated progress note. Diagnosis: Problems: (1) Anxiety disorder (2) Major neurocognitive disorder (3) Dementia in Alzheimer's disease with delusions (4) Dementia in Alzheimer's disease with depression (5) Dementia, vascular, with delusions (6) Dementia, vascular, with depression (7) Impulse control disorder (8) Alzheimer's dementia with behavioral disturbance CECILIO RECINOS MD Jun 09, 2019 22:01
[2019-06-10] MEDS: LEVOTHYROXINE 150 MCG TABLET PO SCH (00:09)
[2019-06-10] MEDS ORDERED: DIVA125C2 PO (02:59)
[2019-06-10] MEDS ORDERED: TRAZ-120 PO (03:06)
[2019-06-10] MEDS ORDERED: CHOL500021 PO (03:19)
[2019-06-10 06:19] VITALS: BP 132/67
[2019-06-10] MEDS: DOCUSATE SODIUM 100 MG CAPSULE PO SCH (08:32)
[2019-06-10] MEDS: traZODone 50 MG TABLET. PO SCH (08:32)
[2019-06-10] MEDS: DIVALPROEX 125 MG CAP.SPRINK PO SCH (08:33)
[2019-06-10] MEDS: FOLIC ACID 1 MG TABLET PO SCH (08:33)
[2019-06-10] MEDS: SERTRALINE 100 MG TABLET. PO SCH (08:33)
[2019-06-10] MEDS: POLYETHYLENE GLYCOL 3350 17 GM PACKET. PO SCH (08:33)
[2019-06-10] MEDS: ASPIRIN 81 MG TAB.CHEW PO SCH (08:33)
[2019-06-10] MEDS: FAMOTIDINE 20 MG TABLET PO SCH (08:33)
[2019-06-10] MEDS: QUEtiapine 50 MG TABLET. PO SCH (08:33)
[2019-06-10] MEDS: ACETAMINOPHEN 325 MG TABLET PO SCH (08:33)
[2019-06-10] MEDS: THIAMINE 100 MG TABLET. PO SCH (08:37)
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
--- NOTE | 2019-06-10 21:36 | PDOC ---
Exam Note: Sebastien Note: Please also refer to the separate dictated note~for this date of service dictated separately.~Patient seen individually. Discussed the patient with Nursing staff reviewed the chart.~Reviewed interim history and current functioning. Reviewed vital signs,~Labs/ Radiology~and current medications noted below. Continue current treatment with the changes noted in the dictated addendum note Assessment: Vital Signs/I&O: Vital Signs Date Time Temp Pulse Resp B/P (MAP) Pulse Ox O2 Delivery O2 Flow Rate FiO2 06/10/19 06:19 97.7 55 16 132/67 (88) 99 06/09/19 17:39 Room Air I & O 06/09/19 06/09/19 06/10/19 15:00 23:00 07:00 Intake Total 720 ml 240 ml 240 ml Balance 720 ml 240 ml 240 ml Current Medications: I have reviewed the current psychotropics carefully including drug interactions. Risk benefit ratio favors no change other than as noted in my dictated progress note. Diagnosis: Problems: (1) Anxiety disorder (2) Major neurocognitive disorder (3) Dementia in Alzheimer's disease with delusions (4) Dementia in Alzheimer's disease with depression (5) Dementia, vascular, with delusions (6) Dementia, vascular, with depression (7) Impulse control disorder (8) Alzheimer's dementia with behavioral disturbance CECILIO RECINOS MD Jun 10, 2019 21:36
--- NOTE | 2019-06-11 02:56 | PN ---
DATE: 06/08/2019 PSYCHIATRIC PROGRESS NOTE This late entry, 06/08/2019, covers elements not covered in my initial note. SUBJECTIVE: I met with the patient in the evening of 06/08/2019. According to HARVEY Sol, the patient slept 7-3/4 hours previous night. He is pleasant. We will be checking labs on 06/08/2019 and these are unremarkable at the time of this dictation. We did discontinue the Provera since there was no sexually inappropriate behavior. He was incontinent in the morning, somewhat agitated, takes his medications crushed in Boost, again behaviorally much improved. REVIEW OF SYSTEMS: No CV, , pulmonary, eye, ENT system symptoms on review. Reliability poor. MENTAL STATUS EXAM: Oriented to himself. Insight, judgment, recent and remote memory, attention, concentration, fund of knowledge poor, consistent with his diagnosis mentioned in my initial note. PLAN: No change from initial note. CECILIO RECINOS MD DR: EVETTE/abdirahman JOB#: [id number] / [id number]
--- NOTE | 2019-06-11 03:00 | PN ---
DATE: 06/09/2019 PSYCHIATRIC PROGRESS NOTE This late entry 06/09/2019 covers elements not covered in my initial note. SUBJECTIVE: I met with the patient evening of 06/09/2019 and staffed at a treatment team meeting with the entire team. The patient slept 6-1/2 hours previous night. Appetite 75%, calm, cooperative. No sexually inappropriate behaviors, quite redirectable, certainly remains confused. REVIEW OF SYSTEMS: No CV, , pulmonary, eye, ENT system symptoms on review. Reliability poor. MENTAL STATUS EXAM: Oriented to himself. Insight, judgment, recent and remote memory, attention, concentration, fund of knowledge poor, consistent with his diagnosis mentioned in my initial note. PLAN: No change from initial note. Possible discharge on 06/10/2019. MAN Gladis RECINOS MD DR: EVETTE/abdirahman JOB#: [id number] / [id number]
== END 2019-06-10 11:10 | DRG 57 ==
LOC: ER 12:38 → GEROPSY 16:58
PROVIDERS: ADMIT Psychiatry & Neurology Psychiatry; ATTEND Psychiatry & Neurology Psychiatry
DX: G30.9 Alzheimer's disease, unspecified (principal); F02.81 Dementia in other diseases classified elsewhere, unspecified severity, with behavioral disturbance; F01.51 Vascular dementia, unspecified severity, with behavioral disturbance; F32.9 Major depressive disorder, single episode, unspecified; F41.9 Anxiety disorder, unspecified; F63.9 Impulse disorder, unspecified; F10.20 Alcohol dependence, uncomplicated; I10 Essential (primary) hypertension; D72.819 Decreased white blood cell count, unspecified; Z86.73 Personal history of transient ischemic attack (TIA), and cerebral infarction without residual deficits; E03.9 Hypothyroidism, unspecified; G40.909 Epilepsy, unspecified, not intractable, without status epilepticus; K21.9 Gastro-esophageal reflux disease without esophagitis; N40.0 Benign prostatic hyperplasia without lower urinary tract symptoms; G89.4 Chronic pain syndrome; Z79.899 Other long term (current) drug therapy; M19.90 Unspecified osteoarthritis, unspecified site
CPT/HCPCS: 36415; 80053; 80061; 80164; 81001; 82306; 82607; 83036; 83540; 83550; 83735; 84436; 84439; 84443; 84480; 85025; 86592; 90471; 90686; 93005; 99285-25